=== PATIENT | female | born 1975 | race Caucasian/White ===

== ENCOUNTER → 2020-01-31 13:11 | Outpatient (BNVA) | payer OTHER, SELFPAY | PROVIDERS: Visit Provider Internal Medicine | DX: F11.20 Opioid dependence, uncomplicated (principal) | CPT/HCPCS: 80305; 99211 ==

== ENCOUNTER → 2020-02-18 15:35 | Outpatient (BNVA) | payer OTHER, SELFPAY | PROVIDERS: Visit Provider Internal Medicine | DX: F11.20 Opioid dependence, uncomplicated (principal) | CPT/HCPCS: 80305; 99211 ==

== ENCOUNTER → 2020-03-20 16:13 | Outpatient (BNVA) | payer OTHER, SELFPAY | PROVIDERS: Visit Provider Internal Medicine | DX: Z76.89 Persons encountering health services in other specified circumstances (principal) ==

== ENCOUNTER → 2020-04-17 15:47 | Outpatient (BNVA) | payer OTHER, SELFPAY | PROVIDERS: PCP Physician Assistant; Visit Provider Internal Medicine | DX: Z76.89 Persons encountering health services in other specified circumstances (principal) ==

== ENCOUNTER → 2020-05-14 11:46 | Outpatient (BNVA) | payer OTHER, SELFPAY | PROVIDERS: PCP Physician Assistant; Visit Provider Internal Medicine | DX: F11.20 Opioid dependence, uncomplicated (principal) | CPT/HCPCS: 80305; 99211 ==

== ENCOUNTER → 2020-06-11 13:04 | Outpatient (BNVA) | payer OTHER, SELFPAY | PROVIDERS: PCP Physician Assistant; Visit Provider Internal Medicine | DX: F11.99 Opioid use, unspecified with unspecified opioid-induced disorder (principal); Z79.899 Other long term (current) drug therapy | CPT/HCPCS: 80305; 99211 ==

== ENCOUNTER → 2020-12-11 13:19 | Outpatient (BNVA) | payer OTHER, SELFPAY | PROVIDERS: PCP Physician Assistant; Visit Provider Internal Medicine | DX: Z51.81 Encounter for therapeutic drug level monitoring (principal); F11.90 Opioid use, unspecified, uncomplicated | CPT/HCPCS: 80305; 99212 ==

== ENCOUNTER 2021-01-11 13:33 | Outpatient (REF) | payer OTHER, SELFPAY ==
[2021-01-11 18:38] LABS: Fentanyl, urine POSITIVE (Not Detect)
== END 2021-01-11 13:34 | disposition home or self-care (01) ==
LOC: HO.LAB 13:33
PROVIDERS: PCP Physician Assistant; Visit Provider Internal Medicine
DX: F11.20 Opioid dependence, uncomplicated (principal); Z79.899 Other long term (current) drug therapy
CPT/HCPCS: 36415; 80305; 80307; 99212

== ENCOUNTER → 2021-01-21 10:21 | Outpatient (BNVA) | payer OTHER, SELFPAY | PROVIDERS: Visit Provider Nurse Practitioner Psychiatric/Mental Health | DX: F11.99 Opioid use, unspecified with unspecified opioid-induced disorder (principal); Z51.81 Encounter for therapeutic drug level monitoring | CPT/HCPCS: 80305; 99212 ==

== ENCOUNTER → 2021-01-26 11:51 | Outpatient (BNVA) | payer OTHER, SELFPAY | PROVIDERS: Visit Provider Internal Medicine | DX: F11.90 Opioid use, unspecified, uncomplicated (principal) | CPT/HCPCS: 80305; 99212 ==

== ENCOUNTER 2021-03-23 10:45 | Outpatient (REF) | payer OTHER, SELFPAY ==
[2021-03-23 17:13] LABS: Fentanyl, urine Not Detected (Not Detect)
== END 2021-03-23 10:46 | disposition home or self-care (01) ==
LOC: HO.LNP 10:45
PROVIDERS: Visit Provider Internal Medicine
DX: F11.20 Opioid dependence, uncomplicated (principal); Z79.899 Other long term (current) drug therapy
CPT/HCPCS: 80305; 80307; 99212

== ENCOUNTER → 2021-03-30 13:22 | Outpatient (BNVA) | payer OTHER, SELFPAY | PROVIDERS: Visit Provider Internal Medicine | DX: F11.20 Opioid dependence, uncomplicated (principal) | CPT/HCPCS: 80305; 99211 ==

== ENCOUNTER → 2021-06-16 10:18 | Outpatient (BNVA) | payer OTHER, SELFPAY | PROVIDERS: Visit Provider Internal Medicine | DX: F11.20 Opioid dependence, uncomplicated (principal); Z51.81 Encounter for therapeutic drug level monitoring; Z79.899 Other long term (current) drug therapy | CPT/HCPCS: 80305; 99202 ==

== ENCOUNTER → 2021-08-20 13:29 | Outpatient (BNVA) | payer OTHER, SELFPAY | PROVIDERS: Visit Provider Internal Medicine | DX: F11.20 Opioid dependence, uncomplicated (principal); F14.90 Cocaine use, unspecified, uncomplicated | CPT/HCPCS: 99212 ==

== ENCOUNTER → 2021-08-23 14:21 | Outpatient (BNVA) | payer OTHER, SELFPAY | PROVIDERS: Visit Provider Internal Medicine | DX: Z51.81 Encounter for therapeutic drug level monitoring (principal); F11.20 Opioid dependence, uncomplicated | CPT/HCPCS: 80305; 99212 ==

== ENCOUNTER → 2021-09-17 10:55 | Outpatient (BNVA) | payer OTHER, SELFPAY | PROVIDERS: Visit Provider Internal Medicine | DX: F11.20 Opioid dependence, uncomplicated (principal) | CPT/HCPCS: 80305; 99212 ==

== ENCOUNTER → 2021-09-27 13:07 | Outpatient (BNVA) | payer OTHER, SELFPAY | PROVIDERS: Visit Provider Internal Medicine | DX: Z51.81 Encounter for therapeutic drug level monitoring (principal); F11.20 Opioid dependence, uncomplicated | CPT/HCPCS: 80305; 99212 ==

== ENCOUNTER → 2021-10-04 13:06 | Outpatient (BNVA) | payer OTHER, SELFPAY | PROVIDERS: Visit Provider Internal Medicine | DX: F11.20 Opioid dependence, uncomplicated (principal) | CPT/HCPCS: 80305; 99212 ==

== ENCOUNTER → 2021-10-12 12:49 | Outpatient (BNVA) | payer OTHER, SELFPAY | PROVIDERS: Visit Provider Internal Medicine | DX: F11.20 Opioid dependence, uncomplicated (principal) | CPT/HCPCS: 80305; 99212 ==

== ENCOUNTER → 2021-10-18 13:23 | Outpatient (BNVA) | payer OTHER, SELFPAY | PROVIDERS: Visit Provider Internal Medicine | DX: F11.20 Opioid dependence, uncomplicated (principal) | CPT/HCPCS: 80305; 99212 ==

== ENCOUNTER → 2021-10-25 13:57 | Outpatient (BNVA) | payer OTHER, SELFPAY | PROVIDERS: Visit Provider Internal Medicine | DX: Z51.81 Encounter for therapeutic drug level monitoring (principal); F11.20 Opioid dependence, uncomplicated | CPT/HCPCS: 80305; 99212 ==

== ENCOUNTER → 2021-11-22 11:53 | Outpatient (BNVA) | payer OTHER, SELFPAY | PROVIDERS: Visit Provider Internal Medicine | DX: Z51.81 Encounter for therapeutic drug level monitoring (principal); F11.20 Opioid dependence, uncomplicated | CPT/HCPCS: 99212 ==

== ENCOUNTER → 2021-12-07 13:58 | Outpatient (BNVA) | payer OTHER, SELFPAY | PROVIDERS: PCP Physician Assistant; Visit Provider Internal Medicine | DX: Z51.81 Encounter for therapeutic drug level monitoring (principal); F11.20 Opioid dependence, uncomplicated | CPT/HCPCS: 99212 ==

== ENCOUNTER 2021-12-09 15:24 | Outpatient (REF) | payer OTHER, SELFPAY ==
[2021-12-09 16:14] LABS: Hematocrit 34.7 % (37.0-47.0); Hemoglobin 11.6 g/dl (12.0-16.0); Mean Corpuscular HGB Conc 33.4 g/dl (31.0-35.0); Mean Corpuscular Hemoglobin 27.4 pg (27.0-33.0); Mean Corpuscular Volume 81.8 fL (80.0-98.0); Mean Platelet Volume 9.1 fL (9.4-12.3); Platelet Count 175 X10*3/uL (160-400); Red Blood Count 4.24 X10*6/uL (4.20-5.50); Red Cell Distribution Width 13.8 % (11.0-16.0); White Blood Count 3.3 X10*3/uL (4.8-10.8)
[2021-12-09 16:43] LABS: Alanine Aminotransferase 21 U/L (0-31); Albumin Level 3.9 g/dL (3.5-5.0); Alkaline Phosphatase 57 U/L (39-117); Anion Gap 13 (12-20); Aspartate Amino Transferase 26 U/L (5-31); Bilirubin Total 0.2 mg/dL (0.0-1.0); Blood Urea Nitrogen 14 mg/dL (9-16); Calcium 8.5 mg/dL (8.4-10.2); Carbon Dioxide 25 mmol/L (22-29); Chloride 105 mmol/L (96-108); Estimated Glomerular Filt Rate > 60; Glucose Fasting 85 mg/dL (60-99); Potassium 3.9 mmol/L (3.3-5.1); Sodium 139 mmol/L (135-145); Total Protein 6.2 g/dL (6.5-8.0)
[2021-12-09 17:03] LABS: TSH reflex Free T4 1.17 uIU/mL (0.32-4.0)
== END 2021-12-09 15:25 | disposition home or self-care (01) ==
LOC: HO.LAB 15:24
PROVIDERS: PCP Physician Assistant; Visit Provider Physician Assistant
DX: Z13.1 Encounter for screening for diabetes mellitus (principal); Z13.29 Encounter for screening for other suspected endocrine disorder
CPT/HCPCS: 36415; 80053; 84443; 85027

== ENCOUNTER → 2021-12-15 14:17 | Outpatient (BNVA) | payer OTHER, SELFPAY | PROVIDERS: PCP Physician Assistant; Visit Provider Internal Medicine | DX: Z51.81 Encounter for therapeutic drug level monitoring (principal); F11.20 Opioid dependence, uncomplicated | CPT/HCPCS: 99212 ==

== ENCOUNTER → 2021-12-21 10:08 | Outpatient (BNVA) | payer OTHER, SELFPAY | PROVIDERS: PCP Physician Assistant; Visit Provider Internal Medicine | DX: F11.20 Opioid dependence, uncomplicated (principal) | CPT/HCPCS: 99212 ==

== ENCOUNTER → 2022-01-31 11:06 | Outpatient (BNVA) | payer OTHER, SELFPAY | PROVIDERS: PCP Physician Assistant; Visit Provider Internal Medicine | DX: Z51.81 Encounter for therapeutic drug level monitoring (principal); F11.20 Opioid dependence, uncomplicated | CPT/HCPCS: 99212 ==

== ENCOUNTER → 2022-02-15 13:12 | Outpatient (BNVA) | payer OTHER, SELFPAY | PROVIDERS: PCP Physician Assistant; Visit Provider Surgery Vascular Surgery | DX: I83.11 Varicose veins of right lower extremity with inflammation (principal); F11.20 Opioid dependence, uncomplicated | CPT/HCPCS: 99202; 99212 ==

== ENCOUNTER 2022-03-01 16:59 | Outpatient (REF) | payer OTHER, SELFPAY ==
[2022-03-01 17:27] LABS: Fentanyl, urine POSITIVE (Not Detect)
== END 2022-03-01 17:00 | disposition home or self-care (01) ==
LOC: HO.LNP 16:59
PROVIDERS: Visit Provider Internal Medicine
DX: F11.20 Opioid dependence, uncomplicated (principal); Z51.81 Encounter for therapeutic drug level monitoring; Z79.899 Other long term (current) drug therapy
CPT/HCPCS: 80307; 99212

== ENCOUNTER → 2022-03-08 10:00 | Outpatient (BNVA) | payer OTHER, SELFPAY | PROVIDERS: PCP Physician Assistant; Visit Provider Nurse Practitioner Psychiatric/Mental Health | DX: Z51.81 Encounter for therapeutic drug level monitoring (principal); F11.20 Opioid dependence, uncomplicated | CPT/HCPCS: 80305; 99212 ==

== ENCOUNTER → 2022-03-17 15:32 | Outpatient (BNVA) | payer OTHER, SELFPAY | PROVIDERS: PCP Physician Assistant; Visit Provider Nurse Practitioner Psychiatric/Mental Health | DX: F11.20 Opioid dependence, uncomplicated (principal); F17.210 Nicotine dependence, cigarettes, uncomplicated; F32.A Depression, unspecified; Z79.899 Other long term (current) drug therapy; Z51.81 Encounter for therapeutic drug level monitoring | CPT/HCPCS: 80305; 99212 ==

== ENCOUNTER → 2022-03-24 15:37 | Outpatient (BNVA) | payer OTHER, SELFPAY | PROVIDERS: PCP Physician Assistant; Visit Provider Nurse Practitioner Psychiatric/Mental Health | DX: Z51.81 Encounter for therapeutic drug level monitoring (principal); F11.20 Opioid dependence, uncomplicated | CPT/HCPCS: 80305; 99212 ==

== ENCOUNTER → 2022-04-07 14:55 | Outpatient (BNVA) | payer OTHER, SELFPAY | PROVIDERS: PCP Physician Assistant; Visit Provider Nurse Practitioner Psychiatric/Mental Health | DX: Z51.81 Encounter for therapeutic drug level monitoring (principal); F11.20 Opioid dependence, uncomplicated; F14.10 Cocaine abuse, uncomplicated | CPT/HCPCS: 80305; 99212 ==

== ENCOUNTER → 2022-04-14 15:10 | Outpatient (BNVA) | payer OTHER, SELFPAY | PROVIDERS: PCP Physician Assistant; Visit Provider Nurse Practitioner Psychiatric/Mental Health | DX: F11.20 Opioid dependence, uncomplicated (principal); F14.10 Cocaine abuse, uncomplicated | CPT/HCPCS: 99212 ==

== ENCOUNTER → 2022-04-22 11:32 | Outpatient (BNVA) | payer OTHER, SELFPAY | PROVIDERS: PCP Physician Assistant; Visit Provider Nurse Practitioner Psychiatric/Mental Health | DX: F11.20 Opioid dependence, uncomplicated (principal); F14.10 Cocaine abuse, uncomplicated | CPT/HCPCS: 99212 ==

== ENCOUNTER → 2022-04-28 16:06 | Outpatient (BNVA) | payer OTHER, SELFPAY | PROVIDERS: PCP Physician Assistant; Visit Provider Nurse Practitioner Psychiatric/Mental Health | DX: F11.20 Opioid dependence, uncomplicated (principal); F14.10 Cocaine abuse, uncomplicated | CPT/HCPCS: 99212 ==

== ENCOUNTER → 2022-05-12 15:16 | Outpatient (BNVA) | payer OTHER, SELFPAY | PROVIDERS: PCP Physician Assistant; Visit Provider Nurse Practitioner Psychiatric/Mental Health | DX: F11.20 Opioid dependence, uncomplicated (principal); F14.20 Cocaine dependence, uncomplicated; F32.A Depression, unspecified; F17.210 Nicotine dependence, cigarettes, uncomplicated; Z71.51 Drug abuse counseling and surveillance of drug abuser; Z51.81 Encounter for therapeutic drug level monitoring; Z79.899 Other long term (current) drug therapy | CPT/HCPCS: 99212 ==

== ENCOUNTER → 2022-05-27 11:13 | Outpatient (BNVA) | payer OTHER, SELFPAY | PROVIDERS: PCP Physician Assistant; Visit Provider Nurse Practitioner Psychiatric/Mental Health | DX: Z51.81 Encounter for therapeutic drug level monitoring (principal); F11.20 Opioid dependence, uncomplicated; F14.10 Cocaine abuse, uncomplicated | CPT/HCPCS: 80305; 99212 ==

== ENCOUNTER → 2022-06-09 15:07 | Outpatient (BNVA) | payer OTHER, SELFPAY | PROVIDERS: PCP Physician Assistant; Visit Provider Nurse Practitioner Psychiatric/Mental Health | DX: Z51.81 Encounter for therapeutic drug level monitoring (principal); F11.20 Opioid dependence, uncomplicated; F14.10 Cocaine abuse, uncomplicated | CPT/HCPCS: 80305; 99212 ==

== ENCOUNTER → 2022-06-23 15:19 | Outpatient (BNVA) | payer OTHER, SELFPAY | PROVIDERS: PCP Physician Assistant; Visit Provider Nurse Practitioner Psychiatric/Mental Health | DX: F11.20 Opioid dependence, uncomplicated (principal); F14.10 Cocaine abuse, uncomplicated | CPT/HCPCS: 80305; 99212 ==

== ENCOUNTER → 2022-07-07 15:14 | Outpatient (BNVA) | payer OTHER, SELFPAY | PROVIDERS: PCP Physician Assistant; Visit Provider Nurse Practitioner Psychiatric/Mental Health | DX: F11.20 Opioid dependence, uncomplicated (principal); U07.0 Vaping-related disorder; F17.210 Nicotine dependence, cigarettes, uncomplicated; Z51.81 Encounter for therapeutic drug level monitoring; Z79.899 Other long term (current) drug therapy | CPT/HCPCS: 80305; 99212 ==

== ENCOUNTER → 2022-07-21 15:33 | Outpatient (BNVA) | payer OTHER, SELFPAY | PROVIDERS: PCP Physician Assistant | DX: Z51.81 Encounter for therapeutic drug level monitoring (principal); F11.10 Opioid abuse, uncomplicated ==

== ENCOUNTER 2022-07-26 16:29 | Emergency (ER) | payer OTHER, SELFPAY ==
--- NOTE | ~2022-07-26 | XR_ITS ---
EXAMINATION: XR CHEST CLINICAL INFORMATION: Short of breath COMPARISON: None available. TECHNIQUE: Frontal view of the chest was obtained. FINDINGS: The lungs are well expanded. There is no focal consolidation, edema, or effusion. No pneumothorax. The cardiomediastinal silhouette is within normal limits. No acute osseous abnormality. XR/XR chest 1V IMPRESSION: No acute pulmonary disease.
[2022-07-26 16:35] VITALS: BP 95/66; PULSE 132; RESP 18; TEMP 36.4; O2SAT 97; BMI 19.8
--- NOTE | 2022-07-26 16:40 | ED_ITS ---
HPI - URI/Sore Throat General Chief Complaint: Upper Respiratory Symptoms Stated Complaint: SOB/Trouble swallowing Time Seen by Provider: 07/26/22 19:34 Source: patient Mode of arrival: ambulatory Limitations: no limitations History of Present Illness HPI Narrative: Patient comes emergency room complaining of a sore throat that started a few days ago. Patient states that her kids had the same viral infection. Patient's partner came to be evaluated a few days ago, he was diagnosed with a viral infection as well. Patient denies fever or chills. Patient complaining of pain in her throat with swallowing. Related Data Previous Rx's Medication Instructions Recorded naloxone 4 mg/actuation nasal 4 mg intranasal Q2M PRN opioid 06/16/21 spray (Narcan) overdose #2 ea comp.stocking,thigh,long,small #2 ea 12/09/21 digital therapeutics, OUD (Reset-O #1 ea 05/27/22 Digital Jean (OUD)) bupropion HCl 150 mg tablet,12 hr 150 mg PO BID 30 days #60 tabs 06/09/22 sustained-release (Wellbutrin SR) [place], OUD (Reset-O #1 ea 06/09/22 Digital Jean (OUD)) topiramate 25 mg tablet 50 mg PO DAILY #60 tabs 06/09/22 mirtazapine 7.5 mg tablet 7.5 mg PO .bedtime PRN for 07/09/22 insomnia #30 tabs buprenorphine 8 mg-naloxone 2 mg 1 film sublingual BID 14 days #28 07/20/22 sublingual film (Suboxone) ea Allergies Allergy/AdvReac Type Severity Reaction Status Date / Time No Known Allergies Allergy Verified 07/26/22 16:34 Review of Systems Review of Systems: Constitutional : No Weight loss, No Fever, No Chills, No Night Sweats, No Fatigue, No Malaise ENT/Mouth : No Hearing loss, No Ear Pain, No Nasal Congestion, No Sinus Pain, No Hoarseness, complaining of sore throat, No Rhinorrhea, No Swallowing Difficulty Eyes: No Eye Pain, No Swelling, No Redness, No Foreign Body, No Discharge, No Vision Changes Cardiovascular : No Chest Pain, No SOB, No Dyspnea on Exertion, No Orthopnea, No Edema, No Palpitations Respiratory : No Cough, No Sputum, No Wheezing, No Smoke Exposure, No Dyspnea Gastrointestinal : No Nausea, No Vomiting, No Diarrhea, No Constipation, No abdominal Pain, No Hematochezia, No Melena Genitourinary : no irregular bleeding, No Dysuria, No Urinary Frequency, No Hematuria, No Urinary Incontinence, No Urgency, No Flank Pain, No Urinary Flow Changes, No Hesitancy Musculoskeletal : No joint pain, No Myalgias, No Joint Swelling Skin : No Skin Lesions, No rash Neuro : No Weakness, No Numbness, No Paresthesias, No Loss of Consciousness, No Dizziness, No Headache Psych : No Anxiety/Panic, No Depression, No SI/HI/AH/VH, No Social Issues, Heme/Lymph: No Bruising, No Bleeding,No Lymphadenopathy Endocrine : No Polyuria, No Polydipsia, No Temperature Intolerance [facility] Past Medical History Medical History Depression Opioid use disorder Family History Family History Father COPD (chronic obstructive pulmonary disease) Mother No problems noted. 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 Cognitive needs: No Hearing needs: No Vision needs: No Physical Exam Vital Signs: Vital Signs: Last Vital Signs Temp 97.5 F 07/26/22 16:35 Pulse 86 07/26/22 18:50 Resp 18 07/26/22 16:35 BP 95/66 07/26/22 16:35 Pulse Ox 97 07/26/22 18:50 O2 Del Method Room Air 07/26/22 18:50 BMI result Body Mass Index 19.8 Const: Other: Appearance: Alert. Oriented X3. No acute distress. Eyes: Pupils equal, round and reactive to light. ENT: Pharynx erythematous, no exudates, no abscesses visualized, no vesicles Neck: Normal inspection. Neck supple. No lymph nodes noted. No crepitus CVS: Normal heart rate and rhythm. Pulses normal. Normal S1 and S2 Respiratory: No respiratory distress. Breath sounds normal. No Wheezing. No rales Abdomen: Soft and nontender. No rigidity. No distention. Skin: Skin warm and dry. Normal skin color. Normal skin turgor. Extremities: No lower extremity edema. No Lacerations. No Rash Neuro: Oriented X 3. No motor deficit. No sensory deficit. Moving all extremities. No slurred speech. CN 2 through 12 grossly intact Psych: calm, cooperative, normal affect Medications Administered Discontinued Medications Generic Name Dose Route Start Last Admin Trade Name Freq PRN Reason Stop Dose Admin Dexamethasone Sodium Phosphate 4 mg 07/26/22 19:48 07/26/22 20:04 Dexamethasone Sod Phosphate 4 Mg/Ml Vial IVPUSH 07/26/22 19:49 4 mg ONCE ONE Administration Lidocaine HCl 15 ml 07/26/22 19:48 07/26/22 20:04 Lidocaine Hcl Viscous 2 % 15 Ml Solution MUCOUS MEM 07/26/22 19:49 15 ml ONCE ONE Administration Medical Decision Making Medical Decision Making MDM Narrative: Patient tested negative for COVID, strep -patient likely has viral pharyngitis -patient was given 1 dose of p.o. Decadron and viscous lidocaine for symptomatic relief Lab Data Labs: Lab Results 07/26/22 07/26/22 07/26/22 Range/Units 18:06 18:06 18:06 COVID-19 (SANDEE) Negative (Negative) COVID-19 Clin Com See Note Influenza Type A (JOSE) Negative (Negative) Influenza Type B (JOSE) Negative (Negative) Influenza A & B Note See Note S. pyogenes GrpA JOSE Negative (Negative) Discharge Plan Discharge Clinical Impression: Acute viral pharyngitis Patient Disposition: Home, Self-Care Instructions: Pharyngitis (ED) Additional Instructions: Please follow-up with your primary care physician tomorrow. If you have any worsening or new symptoms, please return to the emergency room or call 911 Prescriptions: No Action mirtazapine 7.5 mg tablet 7.5 mg PO .bedtime PRN (Reason: for insomnia) Qty: 30 0RF buprenorphine-naloxone [Suboxone] 8-2 mg film 1 film sublingual BID 14 Days Qty: 28 0RF (DME) comp.stocking,thigh,long,small Misc See Rx Instructions .Route Qty: 2 0RF Rx Instructions: As directed naloxone [Narcan] 4 mg/actuation spray,non-aerosol 4 mg intranasal Q2M PRN (Reason: opioid overdose) Qty: 2 11RF Rx Instructions: spray 1 dose into ONE nostril; alternate nostrils w each dose until help arrives (DME) Reset-O Digital Jean (OUD) Misc See Rx Instructions .MEDSUPPLY Qty: 1 0RF Rx Instructions: As directed (3-4 times a week) 84 days topiramate 25 mg tablet 50 mg PO DAILY Qty: 60 1RF bupropion HCl [Wellbutrin SR] 150 mg tablet sustained-release 12 hr 150 mg PO BID 30 Days Qty: 60 5RF (DME) Reset-O Digital Jean (OUD) Misc See Rx Instructions .MEDSUPPLY Qty: 1 3RF Rx Instructions: As directed (3-4 times a week) 84 days
[2022-07-26 18:21] LABS: IDNOW Serial# 08D9AD1C; Strep A Nucleic Acid Negative (Negative)
[2022-07-26 18:27] LABS: COVID-19 Test Negative (Negative); IDNOW Serial# 55D5AD1C
[2022-07-26 18:31] LABS: IDNOW Serial# 9DB6401D; Influenza A Negative (Negative); Influenza B2 Negative (Negative)
[2022-07-26 18:50] VITALS: PULSE 86; O2SAT 97
[2022-07-26] MEDS: dexAMETHasone sod phosphate 4 MG/ML VIAL IVPUSH (20:04)
[2022-07-26] MEDS: Lidocaine HCl Viscous 2 % 15 ML SOLUTION MUCOUS MEM (20:04)
== END 2022-07-26 20:30 | disposition home or self-care (01) ==
PROVIDERS: Physician Assistant; Emergency Provider Emergency Medicine; PCP Physician Assistant
DX: J02.9 Acute pharyngitis, unspecified (principal); Z20.822 Contact with and (suspected) exposure to COVID-19; F11.20 Opioid dependence, uncomplicated; F17.200 Nicotine dependence, unspecified, uncomplicated
CPT/HCPCS: 71045; 87502; 87635; 87651; 99282; 99283; J1100

== ENCOUNTER → 2022-08-04 15:39 | Outpatient (BNVA) | payer OTHER, SELFPAY | PROVIDERS: PCP Physician Assistant; Visit Provider Nurse Practitioner Psychiatric/Mental Health | DX: F11.20 Opioid dependence, uncomplicated (principal); F14.10 Cocaine abuse, uncomplicated; F17.210 Nicotine dependence, cigarettes, uncomplicated; Z51.81 Encounter for therapeutic drug level monitoring; Z79.899 Other long term (current) drug therapy | CPT/HCPCS: 99212 ==

== ENCOUNTER 2022-08-25 11:23 | Outpatient (REF) | payer OTHER, SELFPAY ==
[2022-08-25 14:34] LABS: Alanine Aminotransferase 11 U/L (0-31); Albumin Level 4.1 g/dL (3.5-5.0); Alkaline Phosphatase 58 U/L (39-117); Aspartate Amino Transferase 18 U/L (5-31); Bilirubin Direct 0.1 mg/dL (0.0-0.5); Bilirubin Total 0.3 mg/dL (0.0-1.0); Total Protein 6.6 g/dL (6.5-8.0)
== END 2022-08-25 11:24 | disposition home or self-care (01) ==
LOC: HO.LAB 11:23
PROVIDERS: Absent Provider Nurse Practitioner Psychiatric/Mental Health; PCP Physician Assistant; Visit Provider Nurse Practitioner Psychiatric/Mental Health
DX: F11.20 Opioid dependence, uncomplicated (principal); F14.10 Cocaine abuse, uncomplicated; Z51.81 Encounter for therapeutic drug level monitoring; Z79.899 Other long term (current) drug therapy
CPT/HCPCS: 36415; 80076; 99212

== ENCOUNTER → 2022-09-15 15:24 | Outpatient (BNVA) | payer OTHER, SELFPAY | PROVIDERS: PCP Physician Assistant; Visit Provider Nurse Practitioner Psychiatric/Mental Health | DX: Z51.81 Encounter for therapeutic drug level monitoring (principal); F11.20 Opioid dependence, uncomplicated; F14.10 Cocaine abuse, uncomplicated | CPT/HCPCS: 80305; 99212 ==

== ENCOUNTER 2022-10-20 13:37 | Outpatient (AMB) | payer OTHER, SELFPAY ==
--- NOTE | 2022-10-20 13:40 | A.OFFVIS_ITS ---
Intake Vital Signs 10/20/22 13:47 BP 102/74 Blood Pressure Location Lt radial Position Sitting Pulse 85 Pulse Source Pulse Oximeter Pulse Oximetry (%) 98 Oxygen Delivery Method Room Air Intake Visit Reasons: MAT VISIT Intake Note: the patient presents for a mat visit Documentation Engineer Required: No Allergies No Known Allergies Allergy (Verified 10/20/22 13:40) Do you need a note to return to daycare/school/sports/work: No HPI MAT VISIT HPI Details Patient presents for follow-up. Currently prescribed Suboxone 8 mg b.i.d.. Continues to abstain from opiates and cocaine. Bright affect, has been working for the past 3 months and is excited about her upcoming performance review where she may beginning a raise. 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 No questions or concerns related to medications. 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 Cognitive needs: No Hearing needs: No Vision needs: No Review of Systems Const Reports as per HPI and Reports no additional complaints Physical Exam Vital Signs: Last Vital Signs Pulse 85 10/20/22 13:47 BP 102/74 10/20/22 13:47 Pulse Ox 98 10/20/22 13:47 Oxygen Delivery Method Room Air 10/20/22 13:47 Const General: cooperative, healthy appearing, comfortable, no acute distress, well developed and alert Nutritional Appearance: average body habitus Orientation/consciousness: patient oriented x3 Limitations: no limitations Neuro General: patient oriented x3 Psych Appearance: grossly normal Mental Status: mental status grossly normal Speech and movement: Normal speech and movement present Affect: normal affect Attitude: cooperative Thought process: Normal thought process present Thought content: Normal thought content present Insight: Good insight present (Psych) Judgement: Good judgement present (Psych) Assessment & Plan Assessment & Plan (1) Opioid use disorder, severe, dependence: Code(s): F11.20 - Opioid dependence, uncomplicated Plan: * Continue Suboxone at current dose * Relapse prevention discussion * Follow-up 4 weeks (2) Cocaine use disorder: Code(s): F14.10 - Cocaine abuse, uncomplicated Coding Level of Care Code Est Pt Level 3 (16855) Diagnoses Opioid use disorder, severe, dependence F11.20 Cocaine use disorder F14.10
[2022-10-20 13:47] VITALS: BP 102/74; PULSE 85; O2SAT 98
== END 2022-10-20 14:12 | disposition home or self-care (01) ==
LOC: HO.HCC 13:37
PROVIDERS: PCP Physician Assistant; Visit Provider Nurse Practitioner Psychiatric/Mental Health
DX: F11.20 Opioid dependence, uncomplicated (principal); F14.10 Cocaine abuse, uncomplicated
CPT/HCPCS: 99213

== ENCOUNTER → 2022-10-20 13:37 | Outpatient (BNVA) | payer OTHER, SELFPAY | PROVIDERS: PCP Physician Assistant; Visit Provider Nurse Practitioner Psychiatric/Mental Health | DX: F11.20 Opioid dependence, uncomplicated (principal); F14.10 Cocaine abuse, uncomplicated | CPT/HCPCS: 99212 ==

== ENCOUNTER 2022-11-10 14:28 | Outpatient (AMB) | payer OTHER, SELFPAY ==
--- NOTE | 2022-11-10 14:32 | MHC.OFFVIS ---
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 Working FT+ every week Feels good about having all of her house bills paid and up to date Looking to attend meetings--not locally [facility] Medical History Depression Opioid use disorder Other group home (current) drug therapy Family History Father COPD (chronic obstructive pulmonary disease) Mother No problems noted. 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 Cognitive needs: No Hearing needs: No Vision needs: No Review of Systems Const Reports as per HPI and Reports no additional complaints Physical Exam Vital Signs: Last Vital Signs Pulse 86 11/10/22 14:43 BP 110/70 11/10/22 14:43 Pulse Ox 97 11/10/22 14:43 Oxygen Delivery Method Room Air 11/10/22 14:43 Const General: cooperative, healthy appearing, comfortable, no acute distress, well developed and alert Nutritional Appearance: average body habitus Orientation/consciousness: patient oriented x3 Limitations: no limitations Neuro General: patient oriented x3 Psych Appearance: grossly normal Mental Status: mental status grossly normal Speech and movement: Normal speech and movement present Affect: normal affect Attitude: cooperative Thought process: Normal thought process present Thought content: Normal thought content present Insight: Good insight present (Psych) Judgement: Good judgement present (Psych) Results AMB 14 Panel Urine Drug Screen Urine Marijuana (THC) Positive Last Edit by Cherelle Templeton CMA on 11/10/22 14:50 Urine Cocaine Negative Last Edit by Cherelle Templeton CMA on 11/10/22 14:50 Urine Morphine Negative Last Edit by Cherelle Templeton CMA on 11/10/22 14:50 Urine Methamphetamine Negative Last Edit by Cherelle Templeton CMA on 11/10/22 14:50 Urine Amphetamine Negative Last Edit by Cherelle Templeton CMA on 11/10/22 14:50 Urine Benzodiazepine Negative Last Edit by Cherelle Templeton CMA on 11/10/22 14:50 Urine Barbiturates Negative Last Edit by Cherelle Templeton CMA on 11/10/22 14:50 Urine Methadone Negative Last Edit by Cherelle Templeton CMA on 11/10/22 14:50 Urine Buprenorphine Positive Last Edit by Cherelle Templeton CMA on 11/10/22 14:50 Urine Tricyclic Antidepressant Negative Last Edit by Cherelle Templeton CMA on 11/10/22 14:50 Urine MDMA Negative Last Edit by Cherelle Templeton CMA on 11/10/22 14:50 Urine Oxycodone Negative Last Edit by Cherelle Templeton CMA on 11/10/22 14:50 Urine Phencyclidine Negative Last Edit by Cherelle Templeton CMA on 11/10/22 14:50 Urine Propoxyphene Negative Last Edit by Cherelle Templeton CMA on 11/10/22 14:50 Results Reviewed Results Reviewed: Laboratory Last Values POC Urine Buprenorphine Positive 11/10/22 14:44 POC Urine Morphine Negative 11/10/22 14:44 POC Urine Oxycodone Negative 11/10/22 14:44 POC Urine Methadone Negative 11/10/22 14:44 POC Urine Propoxyphene Negative 11/10/22 14:44 POC Urine Barbiturates Negative 11/10/22 14:44 POC U Tricyclic Antidpr Negative 11/10/22 14:44 POC Urine PCP Negative 11/10/22 14:44 POC Ur Amphetamines Negative 11/10/22 14:44 POC Ur Methamphetamine Negative 11/10/22 14:44 POC Urine MDMA Negative 11/10/22 14:44 POC Ur Benzodiazepine Negative 11/10/22 14:44 POC Urine Cocaine Negative 11/10/22 14:44 POC Ur Marijuana (THC) Positive 11/10/22 14:44 Assessment & Plan Assessment & Plan (1) Opioid use disorder, severe, dependence: Code(s): F11.20 - Opioid dependence, uncomplicated Plan: Continue Suboxone at current dose Relapse prevention discussion Follow-up 4 weeks (2) Cocaine use disorder: Code(s): F14.10 - Cocaine abuse, uncomplicated Orders: Orders AMB 14 Panel Urine Drug Screen 11/10/22 Z51.81 - Encounter for therapeutic drug level monitoring Medications: Refilled buprenorphine-naloxone 8-2 mg (Suboxone) 1 film sublingual BID 60 ea 0RF 30 days Coding Level of Care Code Est Pt Level 3 (23570) Diagnoses Opioid use disorder, severe, dependence F11.20 Cocaine use disorder F14.10
[2022-11-10 14:43] VITALS: BP 110/70; PULSE 86; O2SAT 97
== END 2022-11-10 15:30 | disposition home or self-care (01) ==
LOC: HO.HCC 14:29
PROVIDERS: PCP Physician Assistant; Visit Provider Nurse Practitioner Psychiatric/Mental Health
DX: F11.20 Opioid dependence, uncomplicated (principal); F14.10 Cocaine abuse, uncomplicated
CPT/HCPCS: 99213

== ENCOUNTER → 2022-11-10 14:28 | Outpatient (BNVA) | payer OTHER, SELFPAY | PROVIDERS: PCP Physician Assistant; Visit Provider Nurse Practitioner Psychiatric/Mental Health | DX: Z51.81 Encounter for therapeutic drug level monitoring (principal); F11.20 Opioid dependence, uncomplicated; F14.10 Cocaine abuse, uncomplicated | CPT/HCPCS: 80305; 99212 ==

== ENCOUNTER 2022-12-15 14:56 | Outpatient (AMB) | payer OTHER, SELFPAY ==
--- NOTE | 2022-12-15 14:57 | MHC.OFFVIS ---
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 Cognitive needs: No Hearing needs: No Vision needs: No Review of Systems Const Reports as per HPI and Reports no additional complaints Physical Exam Vital Signs: Last Vital Signs Pulse 78 12/15/22 15:02 BP 106/74 12/15/22 15:02 Pulse Ox 94 12/15/22 15:02 Oxygen Delivery Method Room Air 12/15/22 15:02 Const General: cooperative, healthy appearing, comfortable, no acute distress, well developed and alert Nutritional Appearance: average body habitus Orientation/consciousness: patient oriented x3 Limitations: no limitations Neuro General: patient oriented x3 Psych Appearance: grossly normal Mental Status: mental status grossly normal Speech and movement: Normal speech and movement present Affect: normal affect Attitude: cooperative Thought process: Normal thought process present Thought content: Normal thought content present Insight: Good insight present (Psych) Judgement: Good judgement present (Psych) Assessment & Plan Assessment & Plan (1) Opioid use disorder, severe, dependence: Code(s): F11.20 - Opioid dependence, uncomplicated Plan: Continue Suboxone at current dose Relapse prevention discussion Follow-up 4 weeks (2) Cocaine use disorder: Code(s): F14.10 - Cocaine abuse, uncomplicated Medications: Refilled buprenorphine-naloxone 8-2 mg (Suboxone) 1 film sublingual BID 60 ea 0RF 30 days Coding Level of Care Code Est Pt Level 3 (18785) Diagnoses Opioid use disorder, severe, dependence F11.20 Cocaine use disorder F14.10
[2022-12-15 15:02] VITALS: BP 106/74; PULSE 78; O2SAT 94
== END 2022-12-15 15:32 | disposition home or self-care (01) ==
LOC: HO.HCC 14:56
PROVIDERS: PCP Physician Assistant; Visit Provider Nurse Practitioner Psychiatric/Mental Health
DX: F11.20 Opioid dependence, uncomplicated (principal); F14.10 Cocaine abuse, uncomplicated
CPT/HCPCS: 99213

== ENCOUNTER → 2022-12-15 14:56 | Outpatient (BNVA) | payer OTHER, SELFPAY | PROVIDERS: PCP Physician Assistant; Visit Provider Nurse Practitioner Psychiatric/Mental Health | DX: F11.20 Opioid dependence, uncomplicated (principal); F14.10 Cocaine abuse, uncomplicated; U07.0 Vaping-related disorder; F17.210 Nicotine dependence, cigarettes, uncomplicated; Z51.81 Encounter for therapeutic drug level monitoring; Z79.899 Other long term (current) drug therapy | CPT/HCPCS: 99212 ==

== ENCOUNTER 2023-01-12 10:53 | Outpatient (AMB) | payer OTHER, SELFPAY ==
--- NOTE | 2023-01-12 10:54 | MHC.OFFVIS ---
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 Cognitive needs: No Hearing needs: No Vision needs: No Review of Systems Const Reports as per HPI and Reports no additional complaints Physical Exam Vital Signs: Last Vital Signs Pulse 96 01/12/23 11:02 BP 108/70 01/12/23 11:02 Pulse Ox 97 01/12/23 11:02 Oxygen Delivery Method Room Air 01/12/23 11:02 Const General: cooperative, healthy appearing, comfortable, no acute distress, well developed and alert Nutritional Appearance: average body habitus Orientation/consciousness: patient oriented x3 Limitations: no limitations Neuro General: patient oriented x3 Psych Appearance: grossly normal Mental Status: mental status grossly normal Speech and movement: Normal speech and movement present Affect: normal affect Attitude: cooperative Thought process: Normal thought process present Thought content: Normal thought content present Insight: Good insight present (Psych) Judgement: Good judgement present (Psych) Assessment & Plan Assessment & Plan (1) Opioid use disorder, severe, dependence: Code(s): F11.20 - Opioid dependence, uncomplicated Plan: Continue Suboxone at current dose Relapse prevention discussion Follow-up 4 weeks (2) Cocaine use disorder: Code(s): F14.10 - Cocaine abuse, uncomplicated Plan: continue topomax Medications: Refilled buprenorphine-naloxone 8-2 mg (Suboxone) 1 film sublingual BID 60 ea 0RF 30 days Coding Level of Care Code Est Pt Level 3 (32693) Diagnoses Opioid use disorder, severe, dependence F11.20 Cocaine use disorder F14.10
[2023-01-12 11:02] VITALS: BP 108/70; PULSE 96; O2SAT 97
== END 2023-01-12 11:40 | disposition home or self-care (01) ==
PROVIDERS: PCP Physician Assistant; Visit Provider Nurse Practitioner Psychiatric/Mental Health
DX: F11.20 Opioid dependence, uncomplicated (principal); F14.10 Cocaine abuse, uncomplicated
CPT/HCPCS: 99213

== ENCOUNTER → 2023-01-12 10:53 | Outpatient (BNVA) | payer OTHER, SELFPAY | PROVIDERS: PCP Physician Assistant; Visit Provider Nurse Practitioner Psychiatric/Mental Health | DX: F11.20 Opioid dependence, uncomplicated (principal); F14.10 Cocaine abuse, uncomplicated | CPT/HCPCS: 99212 ==

== ENCOUNTER 2023-02-09 13:45 | Outpatient (AMB) | payer MEDICAID, SELFPAY ==
[2023-02-09 14:05] VITALS: BP 110/72; PULSE 88; O2SAT 97
--- NOTE | 2023-02-09 14:05 | MHC.AM.SUB ---
Intake Vital Signs 02/09/23 14:05 BP 110/72 Blood Pressure Location Rt brachial Position Sitting Pulse 88 Pulse Source Pulse Oximeter Pulse Oximetry (%) 97 Oxygen Delivery Method Room Air Intake Visit Reasons: MAT VISIT Allergies No Known Allergies Allergy (Verified 01/12/23 10:55) HPI MAT VISIT HPI Details Patient presents for follow up Reporting 7 months in recovery Still working FT and happy Spending more time with her daughters Planning for her future [facility] Medical History Depression Opioid use disorder Other detention (current) drug therapy Family History Father COPD (chronic obstructive pulmonary disease) Mother No problems noted. 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 Cognitive needs: No Hearing needs: No Vision needs: No Review of Systems Const Reports as per HPI Physical Exam Vital Signs: Last Vital Signs Pulse 88 02/09/23 14:05 BP 110/72 02/09/23 14:05 Pulse Ox 97 02/09/23 14:05 Oxygen Delivery Method Room Air 02/09/23 14:05 Const General: cooperative, healthy appearing, comfortable, no acute distress, well developed and alert Nutritional Appearance: average body habitus Orientation/consciousness: patient oriented x3 Limitations: no limitations Neuro General: patient oriented x3 Psych Appearance: grossly normal Mental Status: mental status grossly normal Speech and movement: Normal speech and movement present Affect: normal affect Attitude: cooperative Thought process: Normal thought process present Thought content: Normal thought content present Insight: Good insight present (Psych) Judgement: Good judgement present (Psych) Assessment & Plan Assessment & Plan (1) Opioid use disorder, severe, in early remission, dependence: Code(s): F11.21 - Opioid dependence, in remission Plan: continue suboxone at current dose relapse prevention discussion follow up 4 weeks Medications: Refilled buprenorphine-naloxone 8-2 mg (Suboxone) 1 film sublingual BID 60 ea 0RF 30 days Coding Level of Care Code Est Pt Level 3 (91953) Diagnoses Opioid use disorder, severe, in early remission, dependence F11.21
== END 2023-02-09 14:41 | disposition home or self-care (01) ==
PROVIDERS: PCP Physician Assistant; Visit Provider Nurse Practitioner Psychiatric/Mental Health
DX: F11.21 Opioid dependence, in remission (principal)
CPT/HCPCS: 99213

== ENCOUNTER → 2023-02-09 13:45 | Outpatient (BNVA) | payer MEDICAID, SELFPAY | PROVIDERS: PCP Physician Assistant; Visit Provider Nurse Practitioner Psychiatric/Mental Health | DX: Z51.81 Encounter for therapeutic drug level monitoring (principal); F11.21 Opioid dependence, in remission | CPT/HCPCS: 99212 ==

== ENCOUNTER 2023-03-09 13:33 | Outpatient (AMB) | payer MEDICAID, SELFPAY ==
--- NOTE | 2023-03-09 13:40 | MHC.AM.SUB ---
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 Cognitive needs: No Hearing needs: No Vision needs: No Review of Systems Const Reports as per HPI and Reports no additional complaints Physical Exam Const General: cooperative, healthy appearing, comfortable, no acute distress, well developed and alert Nutritional Appearance: average body habitus Orientation/consciousness: patient oriented x3 Limitations: no limitations Neuro General: patient oriented x3 Psych Appearance: grossly normal Mental Status: mental status grossly normal Speech and movement: Normal speech and movement present Affect: normal affect Attitude: cooperative Thought process: Normal thought process present Thought content: Normal thought content present Insight: Good insight present (Psych) Judgement: Good judgement present (Psych) Assessment & Plan Assessment & Plan (1) Opioid use disorder, severe, in early remission, dependence: Code(s): F11.21 - Opioid dependence, in remission Plan: continue suboxone at current dose relapse prevention discussion follow up 4 weeks Medications: Refilled buprenorphine-naloxone 8-2 mg (Suboxone) 1 film sublingual BID 60 ea 0RF 30 days Discontinued nicotine (Nicotrol) every 2 to 4 hours as needed for nicotine cravings Discontinued Reason: Patient no longer taking 1 inh inhalation Q2-4H PRN 168 ea 0RF nicotine cravings Coding Level of Care Code Est Pt Level 3 (13697) Diagnoses Opioid use disorder, severe, in early remission, dependence F11.21
== END 2023-03-09 14:54 | disposition home or self-care (01) ==
PROVIDERS: PCP Physician Assistant; Visit Provider Nurse Practitioner Psychiatric/Mental Health
DX: F11.21 Opioid dependence, in remission (principal)
CPT/HCPCS: 99213

== ENCOUNTER → 2023-03-09 13:33 | Outpatient (BNVA) | payer MEDICAID, SELFPAY | PROVIDERS: PCP Physician Assistant; Visit Provider Nurse Practitioner Psychiatric/Mental Health | DX: F11.21 Opioid dependence, in remission (principal); F14.20 Cocaine dependence, uncomplicated; F17.210 Nicotine dependence, cigarettes, uncomplicated; Z51.81 Encounter for therapeutic drug level monitoring; Z79.899 Other long term (current) drug therapy | CPT/HCPCS: 99212 ==

== ENCOUNTER 2023-04-04 10:11 | Outpatient (AMB) | payer MEDICAID, SELFPAY ==
--- NOTE | 2023-04-04 10:13 | MHC.AM.SUB ---
Intake Vital Signs 04/04/23 10:17 BP 116/70 Blood Pressure Location Lt radial Position Sitting Pulse 99 Pulse Source Pulse Oximeter Pulse Oximetry (%) 96 Oxygen Delivery Method Room Air Intake Visit Reasons: MAT VISIT Intake Note: the patient presents or a mat visit Data Collection Specialist Required: No Allergies No Known Allergies Allergy (Verified 04/04/23 10:19) Do you need a note to return to daycare/school/sports/work: No HPI MAT VISIT HPI Details Patient presents for follow up Doing well with recovery-prescribed Suboxone 8mg BID Still working FT Positive Holiday with family [facility] Medical History (Updated 03/09/23 @ 13:51 by Marquita Rivas CNP) Cocaine use disorder Opioid use disorder, severe, dependence 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 Cognitive needs: No Hearing needs: No Vision needs: No Review of Systems Const Reports as per HPI Physical Exam Vital Signs: Last Vital Signs Pulse 99 04/04/23 10:17 BP 116/70 04/04/23 10:17 Pulse Ox 96 04/04/23 10:17 Oxygen Delivery Method Room Air 04/04/23 10:17 Const General: cooperative, healthy appearing, comfortable, no acute distress, well developed and alert Nutritional Appearance: average body habitus Orientation/consciousness: patient oriented x3 Limitations: no limitations Neuro General: patient oriented x3 Psych Appearance: grossly normal Mental Status: mental status grossly normal Speech and movement: Normal speech and movement present Affect: normal affect Attitude: cooperative Thought process: Normal thought process present Thought content: Normal thought content present Insight: Good insight present (Psych) Judgement: Good judgement present (Psych) Assessment & Plan Assessment & Plan (1) Opioid use disorder, severe, in early remission, dependence: Code(s): F11.21 - Opioid dependence, in remission Plan: continue suboxone at current dose relapse prevention discussion follow up 4 weeks Medications: Refilled buprenorphine-naloxone 8-2 mg (Suboxone) 1 film sublingual BID 30 days 60 ea 0RF bupropion HCl (Wellbutrin SR) 150 mg PO BID 60 tabs 5RF 30 days buprenorphine-naloxone 8-2 mg (Suboxone) 1 film sublingual BID 60 ea 0RF 30 days Coding Level of Care Code Est Pt Level 3 (36109) Diagnoses Opioid use disorder, severe, in early remission, dependence F11.21
[2023-04-04 10:17] VITALS: BP 116/70; PULSE 99; O2SAT 96
== END 2023-04-04 11:13 | disposition home or self-care (01) ==
PROVIDERS: PCP Physician Assistant; Visit Provider Nurse Practitioner Psychiatric/Mental Health
DX: F11.21 Opioid dependence, in remission (principal)
CPT/HCPCS: 99213

== ENCOUNTER → 2023-04-04 10:11 | Outpatient (BNVA) | payer MEDICAID, SELFPAY | PROVIDERS: PCP Physician Assistant; Visit Provider Nurse Practitioner Psychiatric/Mental Health | DX: Z51.81 Encounter for therapeutic drug level monitoring (principal); F11.21 Opioid dependence, in remission | CPT/HCPCS: 99212 ==

== ENCOUNTER 2023-05-02 09:41 | Outpatient (AMB) | payer OTHER, SELFPAY ==
--- NOTE | 2023-05-02 09:45 | A.OFFVISCC_ITS ---
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 Will be getting her car soon. Still working FT PCP appt in May for [facility] Medical History (Updated 03/09/23 @ 13:51 by Marquita Rivas CNP) Cocaine use disorder Opioid use disorder, severe, dependence Other care home (current) drug therapy Depression Opioid use disorder Family History Father COPD (chronic obstructive pulmonary disease) Mother No problems noted. 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 Cognitive needs: No Hearing needs: No Vision needs: No Review of Systems Const Reports as per HPI and Reports no additional complaints Physical Exam Vital Signs: Last Vital Signs Pulse 74 05/02/23 09:49 BP 124/70 05/02/23 09:49 Pulse Ox 98 05/02/23 09:49 Oxygen Delivery Method Room Air 05/02/23 09:49 Const General: cooperative, healthy appearing, comfortable, no acute distress, well developed and alert Nutritional Appearance: average body habitus Orientation/consciousness: patient oriented x3 Limitations: no limitations Neuro General: patient oriented x3 Psych Appearance: grossly normal Mental Status: mental status grossly normal Speech and movement: Normal speech and movement present Affect: normal affect Attitude: cooperative Thought process: Normal thought process present Thought content: Normal thought content present Insight: Good insight present (Psych) Judgement: Good judgement present (Psych) Assessment & Plan Assessment & Plan (1) Opioid use disorder, severe, in early remission, dependence: Code(s): F11.21 - Opioid dependence, in remission Plan: * continue suboxone at current dose * follow up 4 weeks * relapse prevention discussion Medications: Refilled buprenorphine-naloxone 8-2 mg (Suboxone) 1 film sublingual BID 30 days 60 ea 0RF Coding Level of Care Code Est Pt Level 3 (46880) Diagnoses Opioid use disorder, severe, in early remission, dependence F11.21
[2023-05-02 09:49] VITALS: BP 124/70; PULSE 74; O2SAT 98
== END 2023-05-02 10:32 | disposition home or self-care (01) ==
PROVIDERS: PCP Physician Assistant; Visit Provider Nurse Practitioner Psychiatric/Mental Health
DX: F11.21 Opioid dependence, in remission (principal)
CPT/HCPCS: 99213

== ENCOUNTER → 2023-05-02 09:41 | Outpatient (BNVA) | payer OTHER, SELFPAY | PROVIDERS: PCP Physician Assistant; Visit Provider Nurse Practitioner Psychiatric/Mental Health | DX: F11.20 Opioid dependence, uncomplicated (principal) | CPT/HCPCS: 99212 ==

== ENCOUNTER 2023-06-01 12:58 | Outpatient (AMB) | payer OTHER, SELFPAY ==
--- NOTE | 2023-06-01 12:59 | A.OFFVISCC_ITS ---
Intake Vital Signs 06/01/23 13:04 Weight 129 lb BP 110/70 Blood Pressure Location Lt radial Position Sitting Pulse 87 Pulse Source Pulse Oximeter Pulse Oximetry (%) 96 Oxygen Delivery Method Room Air Intake Visit Reasons: MAT VISIT Intake Note: The patient presents for a mat visit Education Nurse Required: No Allergies No Known Allergies Allergy (Verified 06/01/23 13:05) Do you need a note to return to daycare/school/sports/work: No HPI MAT VISIT HPI Details Pt presents for OUD treatment follow up Currently being prescribed Suboxone 8mg BID Denies any side effects related to medication Engaged in outpt treatment with [facility] Still working FT, saving money to get her car on the road. 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 Cognitive needs: No Hearing needs: No Vision needs: No Review of Systems Const Reports as per HPI and Reports no additional complaints Physical Exam Vital Signs: Last Vital Signs Pulse 87 06/01/23 13:04 BP 110/70 06/01/23 13:04 Pulse Ox 96 06/01/23 13:04 Oxygen Delivery Method Room Air 06/01/23 13:04 Const General: cooperative, healthy appearing, comfortable, no acute distress, well developed and alert Nutritional Appearance: average body habitus Orientation/consciousness: patient oriented x3 Limitations: no limitations Neuro General: patient oriented x3 Psych Appearance: grossly normal Mental Status: mental status grossly normal Speech and movement: Normal speech and movement present Affect: normal affect Attitude: cooperative Thought process: Normal thought process present Thought content: Normal thought content present Insight: Good insight present (Psych) Judgement: Good judgement present (Psych) Assessment & Plan Assessment & Plan (1) Opioid use disorder, severe, in early remission, dependence: Code(s): F11.21 - Opioid dependence, in remission Plan: * continue suboxone at current dose * follow up 4 weeks * relapse prevention discussion Medications: Refilled buprenorphine-naloxone 8-2 mg (Suboxone) 1 film sublingual BID 60 ea 0RF 30 days Coding Level of Care Code Est Pt Level 3 (17770) Diagnoses Opioid use disorder, severe, in early remission, dependence F11.21
[2023-06-01 13:04] VITALS: BP 110/70; PULSE 87; O2SAT 96
== END 2023-06-01 13:37 | disposition home or self-care (01) ==
PROVIDERS: PCP Physician Assistant; Visit Provider Nurse Practitioner Psychiatric/Mental Health
DX: F11.21 Opioid dependence, in remission (principal)
CPT/HCPCS: 99213

== ENCOUNTER → 2023-06-01 12:58 | Outpatient (BNVA) | payer OTHER, SELFPAY | PROVIDERS: PCP Physician Assistant; Visit Provider Nurse Practitioner Psychiatric/Mental Health | DX: Z51.81 Encounter for therapeutic drug level monitoring (principal); F11.21 Opioid dependence, in remission | CPT/HCPCS: 99212 ==

== ENCOUNTER 2023-06-08 08:38 | Outpatient (AMB) | payer OTHER, SELFPAY ==
[2023-06-08 08:52] VITALS: BP 92/60; PULSE 67; O2SAT 100; BMI 23.7
--- NOTE | 2023-06-08 08:52 | MHC.PC.OV ---
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 per policy Accompanied by: Self / Same As Patient Allergies No Known Allergies Allergy (Verified 06/08/23 09:14) Medication List - Last Reconciled 06/08/23 by Jet Zheng PA-C buprenorphine-naloxone 8-2 mg (Suboxone) 1 film sublingual BID 30 days bupropion HCl (Wellbutrin SR) 150 mg PO BID 30 days comp.stocking,thigh,long,small As directed naloxone 4 mg/actuation (Narcan) 4 mg intranasal Q2M PRN topiramate 50 mg (2 x 25 mg) PO DAILY Tobacco use date assessed: 06/08/23 Dental Screening Dental Screen Date: 06/08/23 Did you have a dental visit in the last 12 months?: No Did you have a dental problem in the last 6 months where you did not have access to dental care?: No Was dental information given to patient?: Patient has dentist HPI Annual PE HPI Details Patient is a 47 year female here today for routine annual physical. Patient has a past medical history significant for opiate dependency in remission, tobacco dependency. . Concern--> reports suffering with irregular menses and spotting. She would like to establish care with a car examiner again. Also has been experiencing allergic rhinitis and would like a pill for her allergies. Opiate dependency: Patient continues to follow [facility] and continues On Suboxone and has been sober over 11 month now. .. Varicose veins: Varicose veins reoccurred worse in her right lower extremity, often swells and has a burning sensation. Does have compression socks she seldomly wears.. Has had a procedure over her left lower extremity which have been successful, unfortunately had another and varicose veins have reoccurred. She would like to see vascular for procedure .. Tobacco dependency: She continues to smoke cigarettes and electronic tobacco. She does she needs to completely quit and has found it difficult to do so. Colon cancer screening: Willing to do Cologuard Breast cancer screening: needs mammo- will order . WHAT JOB TITLES MEAN: Need WHAT JOB TITLES MEAN - PAP - has a history of atypical cells on Pap Vaccines: Up-to-date with COVID vaccine, tetanus vaccine, pneumonia vaccine, Delines flu vaccine [facility] Medical History Cocaine use disorder Opioid use disorder, severe, dependence Other group home (current) drug therapy Depression Opioid use disorder Family History Father COPD (chronic obstructive pulmonary disease) Mother No problems noted. Social History (Updated 06/08/23 @ 09:21 by Jet Zheng PA-C) Housing: House Alcohol intake: never Patient Tobacco Use Status: Current everyday Tobacco user Tobacco use type: Cigarette and Smokeless Tobacco Cigarettes Per Day: 6 e-Cigarette/Vaping Use: Currently Using Current occupational status: employed Current occupation: [employer] Cognitive needs: No Hearing needs: No Vision needs: No Questionnaire PHQ-9 Over the last 2 weeks, how often have you been bothered by any of the following problems? 1. Little interest or pleasure in doing things: not at all 2. Feeling down, depressed, or hopeless: not at all 3. Trouble falling or staying asleep, or sleeping too much: not at all 4. Feeling tired or having little energy: not at all 5. Poor appetite or overeating: not at all 6. Feeling bad about yourself - or that you are a failure or have let yourself or your family down: not at all 7. Trouble concentrating on things, such as reading the newspaper or watching television: not at all 8. Moving or speaking so slowly that other people could have noticed. Or the opposite - being so fidgety or restless that you have been moving around a lot more than usual: not at all 9. Thoughts that you would be better off or of hurting yourself in some way: not at all Total score: 0 Depression Screening Interpretation: Negative Depression Screening Done: Yes 95396 - PHQ-9 Billing: Yes Source: Developed by Drs. Luis E Santana, Stefanie Sanchez, Ronni Aldana and colleagues, with an educational prashant from [employer]. Thrive Questionnaire Date Thrive assessed: 06/08/23 I am a: Patient What is your living situation today?: I have a steady place to live Within the past 12 months, did the food you bought not last and you didn't have the money to get more?: Never true Within the past 12 months, did you worry whether your food would run out before you got money to buy more?: Never true Do you have trouble paying for medicines?: No Do you have trouble getting transportation to medical appointments?: No Do you have trouble paying your heating and electricity bill?: No Do you have trouble taking care of your child, family member or friend?: No Do you have trouble with day-to-day activities such as bathing, preparing meals, shopping, managing finances, etc.?: No Are you currently unemployed and looking for a job?: No Are you interested in more education?: No Please select the resources that you would like help with: None THRIVE Score: 0 AUDIT C Alcohol Use Questionnaire (AUDIT-C) 1. How often do you have a drink containing alcohol?: Never 3. How often do you have six or more drinks on one occasion?: Never Total Score: 0 FRANK-7 AMB Questionnaire FRANK-7 Date FRANK - 7 assessed: 06/08/23 Feeling nervous, anxious, or on edge: 0 = Not at all Not being able to stop or control worryin = Not at all Worrying too much about different things: 0 = Not at all Trouble relaxin = Not at all Being so restless that it is hard to sit still: 0 = Not at all Becoming easily annoyed or irritable: 0 = Not at all Feeling afraid as if something awful might happen: 0 = Not at all Total FRANK-7 score (0-4 normal; 5-9 mild; 10-14 moderate; 15-21 severe): 0 Source: Developed by Drs. Luis E Santana, Stefanie Sanchez, Ronni Aldana and colleagues, with an educational prashant from [employer]. FRANK-7 Assessment Billing FRANK-7 Assessment Tool: FRANK-7 Assessment 35288 Review of Systems Const Denies body aches, Denies chills, Denies excessive sweating, Denies fatigue, Denies fever(s) and Denies headache(s) Eyes Denies blurry vision ENT Denies dysphagia, Denies vertigo, Denies dizziness, Denies headache(s), Denies hearing loss and Denies tinnitus Card Denies chest pain, Denies chest pain with activity, Denies syncope, Denies irregular heart rhythm and Denies dyspnea Resp Denies chest congestion, Denies cough, Denies hemoptysis, Denies dyspnea and Denies wheezing GI Denies abdominal pain, Denies melena, Denies hematochezia, Denies coffee ground emesis, Denies dysphagia, Denies diarrhea, Denies nausea and Denies vomiting Denies urinary frequency, Denies dysuria, Denies urinary hesitancy and Denies urinary urgency Musc Denies arthralgias, Denies limited range of motion, Denies muscle cramps and Denies muscle weakness Skin/Breast Denies rash and Denies skin ulcer Neuro Denies Abnormal speech present, Denies confusion, Denies vertigo, Denies dizziness, Denies syncope, Denies headache(s), Denies memory loss and Denies seizure-like activity Psych Denies anxiety, Denies confusion, Denies depression, Denies memory loss, Denies panic attacks and Denies paranoia Endo Denies excessive sweating, Denies fatigue, Denies flushing, Denies polydipsia and Denies polyuria Aller/Immun Denies wheezing Physical exam (Primary Care) Vital Signs: Last Vital Signs Pulse 67 06/08/23 08:52 BP 92/60 06/08/23 08:52 Pulse Ox 100 06/08/23 08:52 Oxygen Delivery Method Room Air 06/08/23 08:52 BMI result Body Mass Index 23.7 Tobacco/Smoking Status: Tobacco use Status Tobacco use date assessed 06/08/23 06/08/23 09:02 Patient Tobacco Use Status Current everyday Tobacco 06/08/23 09:21 Tobacco use type Cigarette,Smokeless Tobacco 06/08/23 09:21 e-Cigarette/Vaping Use Currently Using 06/08/23 09:21 Are you ready to quit: No Tobacco cessation counseling provided: Yes Items discussed: Nicotine replacement Relapse Prevention: discussed the importance of a supportive environment, discussed negative mood or depression after quitting, weight gain after smoking is common and discussed dietary, exercise and/or lifestyle changes Number of minutes spent counselin CPT code: 54728 - 4-10 Minutes PHQ-9: PHQ-9 Score PHQ-9: Total score 0 06/08/23 09:40 Depression Screening Interpretation: Negative Thrive Assessment: Date of Thrive Assessment Date Thrive assessed 06/08/23 06/08/23 08:53 Const General: cooperative, comfortable, no acute distress, alert and awake; No confusion Orientation/consciousness: oriented to person, oriented to place, patient oriented x3 and No confusion HENMT Head: Yes normocephalic Ears: external ears normal and TM's normal bilaterally Face and sinus: No sinus tenderness Mouth: Normal oral and palatal mucosa present and tongue normal Teeth and gingiva: dentition normal and gingiva normal Throat: Yes posterior oropharynx normal, Yes tonsils normal and Yes uvula midline Eyes Conjunctivae: conjunctivae normal Sclerae: sclerae normal Pupils: Equal, round and reactive pupils present EOM: EOMs intact bilaterally Direct Ophthalmoscopy: No no photophobia Neck Neck: Yes no lymphadenopathy, No tender and Yes no JVD Thyroid: Thyroid normal Carotids: no bruits Chest Chest palpation & inspection: no tenderness Resp Effort & Inspection: normal respiratory effort, no audible wheezes, not labored and no stridor Auscultation: no crackles, no rales, no rhonchi and no wheezes Cardio Jugular venous distension: no JVD Rate: regular rate, not bradycardic and not tachycardic Rhythm: regular rhythm Bruits: no carotid bruits Peripheral pulses: Peripheral pulses 2+ throughout GI Inspection: Yes normal to inspection, No abdominal wall ecchymosis and No visible herniation Palpation (GI): Soft to palpation, nontender, no guarding, not rigid and No hepatosplenomegaly present Auscultation: normoactive bowel sounds General: Yes no CVA tenderness Back/Spine/Pelvis Back: no CVA tenderness and No back tenderness Cervical Spine: cervical ROM normal Thoracic/Lumbar Spine: thoracic and lumbar spine normal to inspection, straight leg raise negative bilaterally, No thoraco-lumbar ROM limited and No lumbar spinal tenderness Skin Lesions: no lesions Rashes: no rashes Wounds: no wounds Neuro General: oriented to person, oriented to place, patient oriented x3, CN's II-XI intact bilaterally and No confusion Cranial nerves: Yes Equal, round and reactive pupils present and Yes Normal accommodation reflex present Cognition (Neuro): normal cognition Speech: No Abnormal speech present Gait exam (Neuro): Normal gait present Motor exam (neuro): 5/5 motor strength present throughout Extrem Right upper extremity: full ROM; no cyanosis Left upper extremity: full ROM; no cyanosis Right lower extremity: no edema Left lower extremity: no edema Upper/lower leg/hip images: 1. LARGE DILATED VEINS NOTED OVER LOWER RIGHT EXTREMITY. Psych Appearance: grossly normal Mental Status: mental status grossly normal Affect: normal affect Attitude: cooperative Thought process: Normal thought process present Assessment and Plan Assessment & Plan (1) Annual physical exam: Code(s): Z00.00 - Encounter for general adult medical examination without abnormal findings (2) Opioid use disorder, severe, in early remission, dependence: Code(s): F11.21 - Opioid dependence, in remission Plan: Continues to be sober from opiates. Continues on Suboxone and sees [facility]. (3) Depression: Comment: Wellbutrin dose working well, stable mood and affect. Code(s): F32.A - Depression, unspecified Qualifiers: Active/Remission status: in partial remission Depression Type: major depressive disorder Major depression recurrence: recurrent Qualified Code(s): F33.41 - Major depressive disorder, recurrent, in partial remission Plan: Patient's depression is well controlled with current dose Wellbutrin. (4) Tobacco dependence: Code(s): F17.200 - Nicotine dependence, unspecified, uncomplicated Plan: Continues to issues with cut down smoking. She does both electronic cigarettes and regular cigarettes. She has not interested in nicotine replacement at this time for (5) Breast cancer screening: Code(s): Z12.39 - Encounter for other screening for malignant neoplasm of breast Qualifiers: Breast cancer screening modality: mammogram Qualified Code(s): Z12.31 - Encounter for screening mammogram for malignant neoplasm of breast Plan: Willing to do mammogram (6) Cervical cancer screening: Code(s): Z12.4 - Encounter for screening for malignant neoplasm of cervix Plan: Will refer to copyright expert for Pap screening. (7) Atypical squamous cell changes of cervix undetermined significance favor benign: Code(s): R87.610 - Atypical squamous cells of undetermined significance on cytologic smear of cervix (ASC-US) Plan: As above has history of atypical squamous cell of the cervix. Needs repeat Pap (8) Allergic rhinitis: Code(s): J30.9 - Allergic rhinitis, unspecified Qualifiers: Allergic rhinitis seasonality: unspecified Allergic rhinitis trigger: unspecified Qualified Code(s): J30.9 - Allergic rhinitis, unspecified (9) Varicose veins of right lower extremity with inflammation: Code(s): I83.11 - Varicose veins of right lower extremity with inflammation Plan: Has large dilated varicosities in her right lower extremity. Has had vein surgery in the past which was helpful. Did have another 4 years ago and veins in her right lower extremity dilated again. They are symptomatic. She would like to see vascular for another procedure. Orders: Orders Comprehensive [place]. Panel Fast 06/08/23 Z13.1 - Encounter for screening for diabetes mellitus Complete Blood Count no Diff 06/08/23 I83.891 - Varicose veins of right lower extremity with other complications MM screening mammo BI 06/08/23 Z12.31 - Encounter for screening mammogram for malignant neoplasm of breast Referrals [employer]ICER Referral R87.610 - Atypical squamous cells of undetermined significance on cytologic smear of cervix (ASC-US), Z12.4 - Encounter for screening for malignant neoplasm of cervix Vascular Surgery Referral I73.9 - Peripheral vascular disease, unspecified Cologuard Test J30.9 - Allergic rhinitis, unspecified, Z12.11 - Encounter for screening for malignant neoplasm of colon Medications: New loratadine 10 mg PO DAILY 90 days 90 tabs 1RF J30.9 - Allergic rhinitis, unspecified Coding Level of Care Code Est Pt Prev Care 40-64y(21278) Diagnoses Annual physical exam Z00.00 Opioid use disorder, severe, in early remission, dependence F11.21 Recurrent major depressive disorder, in partial remission F33.41 Active/Remission status: in partial remission Depression Type: major depressive disorder Major depression recurrence: recurrent Tobacco dependence F17.200 Encounter for screening mammogram for malignant neoplasm of breast Z12.31 Breast cancer screening modality: mammogram Cervical cancer screening Z12.4 Atypical squamous cell changes of cervix undetermined significance favor benign R87.610 Allergic rhinitis, unspecified seasonality, unspecified trigger J30.9 Allergic rhinitis seasonality: unspecified Allergic rhinitis trigger: unspecified Varicose veins of right lower extremity with inflammation I83.11 Additional Codes FRANK-7 Assessment Billing - FRANK-7 Assessment Tool: FRANK-7 Assessment 18260 ([id number]) Vital Signs *Quality* - CPT code: 05155 - 4-10 Minutes ([id number])
== END 2023-06-08 09:38 | disposition home or self-care (01) ==
PROVIDERS: PCP Physician Assistant; Visit Provider Physician Assistant
DX: Z00.00 Encounter for general adult medical examination without abnormal findings (principal); F11.21 Opioid dependence, in remission; F33.41 Major depressive disorder, recurrent, in partial remission; F17.210 Nicotine dependence, cigarettes, uncomplicated; R87.610 Atypical squamous cells of undetermined significance on cytologic smear of cervix (ASC-US); J30.9 Allergic rhinitis, unspecified; I83.11 Varicose veins of right lower extremity with inflammation
CPT/HCPCS: 99396

== ENCOUNTER 2023-06-22 08:41 | Outpatient (REF) | payer OTHER, SELFPAY ==
--- NOTE | ~2023-06-22 | US_ITS ---
EXAMINATION: US LOWER EXTREMITY VENOUS (REFLUX EXAM), BILATERAL CLINICAL INDICATION: Chronic venous insufficiency with lower extremity varicose veins and pain. History of right great saphenous vein stripping and left wrist saphenous vein procedure COMPARISON: None. TECHNIQUE: Color flow triplex imaging and compression Doppler was performed to evaluate both the deep and the superficial systems bilaterally. To evaluate the superficial system, the examination was performed in the upright position. Color-flow Doppler ultrasound and compression ultrasound were utilized. In addition, maneuvers were utilized to demonstrate reflux. FINDINGS: 1. DEEP VENOUS ULTRASOUND OF THE RIGHT LOWER EXTREMITY: Common Femoral Vein: Compressible, normal respiratory variation and augmented flow. Femoral Vein: Compressible, normal color flow and augmentation. Popliteal Vein: Compressible, normal augmentation. Deep Reflux: There is no evidence of reflux in the deep system in either the common femoral vein, superficial femoral or the popliteal vein. There is no evidence of a Walden's cyst. 2. SUPERFICIAL ULTRASOUND WITH DOPPLER OF RIGHT LOWER EXTREMITY: GREAT SAPHENOUS VEIN: Saphenofemoral Junction: 0.7 cm; Reflux: 2068 ms Proximal Thigh: 0.6 cm; Reflux: 0 ms Mid Thigh: Not visualized Above Knee: Not visualized At Knee: 0.2 cm; Reflux: 0 ms Below Knee: 0.3 cm; Reflux: 0 ms Mid Calf: 0.3 cm; Reflux: 2656 ms Ankle: 0.3 cm; Reflux: 2092 ms DUPLICATED MEDIAL GREAT SAPHENOUS VEIN: Diameter: None imaged Reflux: NA DUPLICATED LATERAL GREAT SAPHENOUS VEIN: Diameter: None imaged Reflux: NA SMALL SAPHENOUS VEIN: Saphenopopliteal Junction: 0.3 cm; Reflux: 0 ms Proximal: 0.4 cm; Reflux: 0 ms Distal: 0.2 cm; Reflux: 0 ms VEIN OF GIACOMINI: Size: NA Reflux: NA PERFORATORS: Location: None significant Size: NA Reflux: NA VARICOSITIES: Location: Large varicose vein arising from the residual great saphenous vein in the proximal thigh and then extending throughout the mid and distal thigh into the calf. Extensive varicose veins also throughout the calf arising from the residual great saphenous vein. Size: Ranging from 0.3 to 0.9 cm Reflux: Ranging from 1740 ms to 2940 ms 3. DEEP VENOUS ULTRASOUND OF THE LEFT LOWER EXTREMITY: Common Femoral Vein: Compressible, normal respiratory variation and augmented flow. Femoral Vein: Compressible, normal color flow and augmentation. Popliteal Vein: Compressible, normal augmentation. Deep Reflux: There is no evidence of reflux in the deep system in either the common femoral vein, superficial femoral or the popliteal vein. There is no evidence of a Walden's cyst. 4. SUPERFICIAL ULTRASOUND WITH DOPPLER OF LEFT LOWER EXTREMITY: GREAT SAPHENOUS VEIN: Saphenofemoral Junction: 0.5 cm; Reflux: 0 ms Proximal Thigh: 0.5 cm; Reflux: 0 ms Mid Thigh: 0.4 cm; Reflux: 0 ms Above Knee: 0.3 cm; Reflux: 0 ms At Knee: 0.3 cm; Reflux: 0 ms Below Knee: Not visualized cm; Reflux: 0 ms Mid Calf: Not visualized cm; Reflux: 0 ms Ankle: 0.3 cm; Reflux: 2700 ms DUPLICATED MEDIAL GREAT SAPHENOUS VEIN: Diameter: None imaged Reflux: NA DUPLICATED LATERAL GREAT SAPHENOUS VEIN: Diameter: None imaged Reflux: NA SMALL SAPHENOUS VEIN: Saphenopopliteal Junction: Not visualized Proximal: Not visualized Distal: Not visualized VEIN OF GIACOMINI: Size: NA Reflux: NA PERFORATORS: Location: None significant Size: NA Reflux: NA VARICOSITIES: Location: Multiple varicose veins arising from of the great saphenous vein in the calf Size: Ranging from 0.3 to 0.5 cm Reflux: Ranging from 0 ms to 2544 ms US/US venous duplex LE BI IMPRESSION: Right: Great saphenous vein in the mid thigh to the knee is not visualized consistent with prior vein stripping. There is severe reflux in the residual great saphenous vein in the proximal thigh with large varicose vein arising from of this branch extending throughout the thigh and calf. There are multiple varicose veins arising from the residual great saphenous vein in the calf as described above Left: Great saphenous vein and small saphenous vein within the calf not visualized. Multiple varicose veins arising from the residual great saphenous vein as described above
== END 2023-06-22 08:42 | disposition home or self-care (01) ==
LOC: HO.US 08:41
PROVIDERS: PCP Physician Assistant; Visit Provider Surgery Vascular Surgery
DX: I83.893 Varicose veins of bilateral lower extremities with other complications (principal)
CPT/HCPCS: 93970

== ENCOUNTER 2023-06-26 13:07 | Outpatient (AMB) | payer OTHER, SELFPAY ==
--- NOTE | 2023-06-26 13:13 | MHC.AM.SUB ---
Intake Vital Signs 06/26/23 13:20 BP 102/70 Blood Pressure Location Lt radial Position Sitting Intake Visit Reasons: MAT VISIT Intake Note: the patient presents for a mat visit Apparel Cutter Required: No Allergies No Known Allergies Allergy (Verified 06/26/23 13:14) Do you need a note to return to daycare/school/sports/work: No HPI MAT VISIT HPI Details Patient presents for follow up This month will be one year since last substance use -one year in recovery Has seen vascular, completed colonoscopy, mammogram next week. Has a car now. Still working. Reflecting on all things that have happened over the last year. [facility] Medical History Cocaine use disorder Opioid use disorder, severe, dependence Other [place] [facility] (current[facility] drug therapy Depression Opioid use disorder Family History Father COPD (chronic obstructive pulmonary disease) Mother No problems noted. Social History (Updated 06/08/23 @ 09:21 by Jet Zheng PA-C) Housing: House Alcohol intake: never Patient Tobacco Use Status: Current everyday Tobacco user Tobacco use type: Cigarette and Smokeless Tobacco Cigarettes Per Day: 6 e-Cigarette/Vaping Use: Currently Using Current occupational status: employed Current occupation: [employer] Cognitive needs: No Hearing needs: No Vision needs: No Review of Systems Const Reports as per HPI Physical Exam Vital Signs: Last Vital Signs BP 102/70 06/26/23 13:20 Const General: cooperative, healthy appearing, comfortable, no acute distress, well developed and alert Nutritional Appearance: average body habitus Orientation/consciousness: patient oriented x3 Limitations: no limitations Neuro General: patient oriented x3 Psych Appearance: grossly normal Mental Status: mental status grossly normal Speech and movement: Normal speech and movement present Affect: normal affect Attitude: cooperative Thought process: Normal thought process present Thought content: Normal thought content present Insight: Good insight present (Psych) Judgement: Good judgement present (Psych) Assessment & Plan Assessment & Plan (1) Opioid use disorder, severe, in early remission, dependence: Code(s): F11.21 - Opioid dependence, in remission Plan: continue suboxone at current dose follow up 4 weeks relapse prevention discussion Medications: Refilled buprenorphine-naloxone 8-2 mg (Suboxone) 1 film sublingual BID 60 ea 0RF 30 days Coding Level of Care Code Est Pt Level 3 (01910) Diagnoses Opioid use disorder, severe, in early remission, dependence F11.21
[2023-06-26 13:20] VITALS: BP 102/70
== END 2023-06-26 13:51 | disposition home or self-care (01) ==
PROVIDERS: PCP Physician Assistant; Visit Provider Nurse Practitioner Psychiatric/Mental Health
DX: F11.21 Opioid dependence, in remission (principal)
CPT/HCPCS: 99213

== ENCOUNTER → 2023-06-26 13:07 | Outpatient (BNVA) | payer OTHER, SELFPAY | PROVIDERS: PCP Physician Assistant; Visit Provider Nurse Practitioner Psychiatric/Mental Health | DX: Z51.81 Encounter for therapeutic drug level monitoring (principal); F11.21 Opioid dependence, in remission | CPT/HCPCS: 99212 ==

== ENCOUNTER 2023-07-01 07:39 | Outpatient (REF) | payer OTHER, SELFPAY ==
--- NOTE | ~2023-07-01 | MM_ITS ---
EXAMINATION: MM SCREENING DIGITAL BREAST TOMOSYNTHESIS, BILATERAL CLINICAL INFORMATION: Screening. Asymptomatic. COMPARISON: Mammography: This is a baseline mammogram. TECHNIQUE: Digital breast tomosynthesis is performed in both the craniocaudal and mediolateral oblique views along with computer-aided detection (CAD). Synthesized 2D images are generated from the tomosynthesis. FINDINGS: The breasts are heterogeneously dense, which may obscure small masses (ACR BI-RADS breast composition Category c). There are no significant masses, abnormal calcifications, or other abnormalities. MM/MM tomosynthesis screening BI IMPRESSION: No mammographic evidence of malignancy. ASSESSMENT: BI-RADS BI-RADS 1 - Negative RECOMMENDATION: Routine annual mammography screening. 1 year F/U This examination should not preclude the clinical evaluation of a suspicious palpable abnormality. This patient's information was entered into a reminder system with a target due date for their next mammogram.
== END 2023-07-01 07:40 | disposition home or self-care (01) ==
LOC: HO.MAMMO 07:39
PROVIDERS: PCP Physician Assistant; Visit Provider Physician Assistant
DX: Z12.31 Encounter for screening mammogram for malignant neoplasm of breast (principal)
CPT/HCPCS: 77063; 77067

== ENCOUNTER → 2023-07-01 07:45 | Outpatient (BNV) | payer OTHER, SELFPAY | PROVIDERS: PCP Physician Assistant; Visit Provider Radiology Diagnostic Radiology | DX: Z12.31 Encounter for screening mammogram for malignant neoplasm of breast (principal) | CPT/HCPCS: 77063; 77067 ==

== ENCOUNTER 2023-07-17 11:46 | Outpatient (REF) | payer OTHER, SELFPAY ==
[2023-07-21 21:08] LABS: HPV mRNA E6/E7 rflx Not Detected (Not Detected)
== END 2023-07-17 11:47 | disposition home or self-care (01) ==
LOC: HO.LNP 11:46
PROVIDERS: PCP Physician Assistant; Visit Provider Obstetrics & Gynecology
DX: Z01.419 Encounter for gynecological examination (general) (routine) without abnormal findings (principal); Z11.51 Encounter for screening for human papillomavirus (HPV)
CPT/HCPCS: 87624; 88142; 99386

== ENCOUNTER 2023-07-17 11:46 | Outpatient (AMB) | payer OTHER, SELFPAY ==
[2023-07-17 12:10] VITALS: BP 92/66; BMI 23.7
--- NOTE | 2023-07-17 12:10 | MHC.OFFVIS ---
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 Complaining of irregular menstrual cycles over the last few months Last Pap/HPV was ascus/HPV negative in 06/26 Last Mammogram was done on 07/01/2023 the results are still pending No previous screening colonoscopy [facility] Medical History Cocaine use disorder Opioid use disorder, severe, dependence Other halfway (current) drug therapy Depression Opioid use disorder Surgical History History of loop electrical excision procedure (LEEP) Hx of tubal ligation Family History Father COPD (chronic obstructive pulmonary disease) Mother No problems noted. Social History Housing: House Alcohol intake: never Patient Tobacco Use Status: Current everyday Tobacco user Tobacco use type: Cigarette and Smokeless Tobacco Cigarettes Per Day: 6 e-Cigarette/Vaping Use: Currently Using Current occupational status: employed Current occupation: [employer] Cognitive needs: No Hearing needs: No Vision needs: No Female Reproductive History Menstrual Age of Menarche: 16 Duration of menses: other control method: permanent sterilization Total pregnancies: 5 Full term: 3 Number of Living Children: 3 Ab induced: 1 Ab spontaneous: 1 Date of last pap smear: 06/11/18 (ASCUS) History of abnormal pap smear: Yes Date of Mammogram: 07/01/23 Review of Systems Const All systems reviewed & are unremarkable except as noted in HPI and below Card Reports as per HPI Resp Reports as per HPI GI Reports as per HPI and Reports no additional complaints Reports as per HPI Physical Exam Vital Signs: Last Vital Signs BP 92/66 07/17/23 12:10 BMI result Body Mass Index 23.7 Const General: cooperative, healthy appearing and comfortable Chest Chest palpation & inspection: normal inspection of the chest and normal palpation of entire chest wall Breast/axilla inspection: normal inspection of the breasts and normal inspection of the axillae Breast/axilla palpation: normal palpation of the breasts, normal palpation of the axillae and no axillary lymphadenopathy Resp Effort & Inspection: normal respiratory effort Auscultation: clear to auscultation bilaterally Percussion: percussion normal Cardio Palpation: normal PMI Rate: regular rate Rhythm: regular rhythm Heart sounds: no murmurs and no rubs Peripheral pulses: Peripheral pulses 2+ throughout GI Inspection: Yes normal to inspection Palpation (GI): Soft to palpation, nontender, no guarding, not rigid and No hepatosplenomegaly present Percussion: Yes normal to percussion Auscultation: normal bowel sounds Rectal Exam - Female: deferred General: Yes bladder normal to palpation External Female Exam: No lesion Speculum Exam - Vagina: normal appearance of the vagina, normal palpation, normal vaginal discharge and not erythematous Speculum Exam - Cervix: normal appearance of the cervix and normal palpation Bimanual exam- vagina & uterus: normal bimanual exam, normal palpation, uterine size normal, bladder normal to palpation, consistency normal and normal palpation Bimanual Exam- Adnexa, other: normal adnexae, no masses and no tenderness Assessment & Plan Assessment & Plan (1) Well woman exam: Code(s): Z01.419 - Encounter for gynecological examination (general) (routine) without abnormal findings Plan: Co testing done. Counseled the patient about the recommended dietary allowance of 1200 mg of Calcium & 600 IU of vitamin D. The patient was referred to GI for screening colonoscopy . The patient was instructed to perform monthly self-breast exams and schedule annual exam in a year. All questions answered and the patient verbalized understanding. (2) Abnormal uterine bleeding: Code(s): N93.9 - Abnormal uterine and vaginal bleeding, unspecified Plan: Co testing done, GC and chlamydia taken CBC, TSH, HCG, prolactin, and pelvic ultrasound ordered. Discussed with the patient the different causes of abnormal bleeding including thyroid disorders, uterine and ovarian pathology, endometrial hyperplasia, carcinoma and other potential causes. Discussed with the patient the work up including CBC (to r/o anemia), TSH, pelvic Ultrasound, endometrial biopsy to r/o endometrial pathology. All questions answered and the patient verbalized understanding. Instructed the patient to schedule an appointment for an endometrial biopsy in 2 weeks. Orders: Orders Pap Smear Today Z01.419 - Encounter for gynecological examination (general) (routine) without abnormal findings HCG Quantitative Today N93.9 - Abnormal uterine and vaginal bleeding, unspecified US pelvic and transvaginal Today N93.9 - Abnormal uterine and vaginal bleeding, unspecified Lutenizing Hormone Today N93.9 - Abnormal uterine and vaginal bleeding, unspecified Follicle Stimulating Hormone Today N93.9 - Abnormal uterine and vaginal bleeding, unspecified CT NG by PCR Today Z20.2 - Contact with and (suspected) exposure to infections with a predominantly sexual mode of transmission Complete Blood Count no Diff Today N93.9 - Abnormal uterine and vaginal bleeding, unspecified TSH reflex Free T4 Today N93.9 - Abnormal uterine and vaginal bleeding, unspecified Prolactin Today N93.9 - Abnormal uterine and vaginal bleeding, unspecified Referrals Gastroenterology Referral Z12.11 - Encounter for screening for malignant neoplasm of colon Coding Level of Care Code New Pt Prev Care 40-64y(42069) Diagnoses Well woman exam Z01.419 Abnormal uterine bleeding N93.9
== END 2023-07-17 12:37 | disposition home or self-care (01) ==
PROVIDERS: PCP Physician Assistant; Visit Provider Obstetrics & Gynecology
DX: Z01.419 Encounter for gynecological examination (general) (routine) without abnormal findings (principal); N93.9 Abnormal uterine and vaginal bleeding, unspecified
CPT/HCPCS: 99386

== ENCOUNTER 2023-07-17 12:42 | Outpatient (REF) | payer OTHER, SELFPAY ==
[2023-07-17 13:22] LABS: Hematocrit 38.9 % (37.0-47.0); Hemoglobin 13.2 g/dl (12.0-16.0); Mean Corpuscular HGB Conc 33.9 g/dl (31.0-35.0); Mean Corpuscular Hemoglobin 29.5 pg (27.0-33.0); Mean Corpuscular Volume 86.8 fL (80.0-98.0); Mean Platelet Volume 9.8 fL (9.4-12.3); Platelet Count 199 X10*3/uL (160-400); Red Blood Count 4.48 X10*6/uL (4.20-5.50); White Blood Count 3.6 X10*3/uL (4.8-10.8)
[2023-07-17 14:42] LABS: HCG Quantitative < 2 mIU/mL; TSH reflex Free T4 1.34 uIU/mL (0.32-4.0)
[2023-07-17 18:49] LABS: CT PCR NOT DETECTED (Not Detect.); NG PCR NOT DETECTED (Not Detect.)
[2023-07-18 09:53] LABS: Follicle Stimulating Hormone 13.5 mIU/mL; Lutenizing Hormone 9.2 mIU/mL
== END 2023-07-17 12:43 | disposition home or self-care (01) ==
LOC: HO.LAB 12:42
PROVIDERS: Visit Provider Obstetrics & Gynecology
DX: N93.9 Abnormal uterine and vaginal bleeding, unspecified (principal); Z20.2 Contact with and (suspected) exposure to infections with a predominantly sexual mode of transmission
CPT/HCPCS: 0353U; 83001; 83002; 84146; 84443; 84702; 85027

== ENCOUNTER 2023-07-20 14:29 | Outpatient (REF) | payer OTHER, SELFPAY ==
--- NOTE | ~2023-07-20 | US_ITS ---
EXAMINATION: US PELVIS CLINICAL INFORMATION: Abnormal uterine bleeding. 47-year-old with irregular LMP. COMPARISON: None available. TECHNIQUE: Ultrasound of the pelvis is performed using both transabdominal and transvaginal transducers along with Doppler. Transvaginal imaging is performed due to inadequate visualization transabdominally. FINDINGS: Uterus: The uterus is anteverted and measures 7.7 x 4.0 x 4.9 cm. The double wall endometrial thickness is 1.7 mm. There is a small cystic area seen in the uterus adjacent to the myometrial/endometrial junction measuring 4 mm. The uterus is smooth in contour and has normal myometrial echogenicity. No visible fibroid. Adnexa: Right ovary is not visualized, no large right adnexal mass. There is normal color flow to the adnexa. There is no ovarian torsion. There is no pelvic ascites or fluid collection. Left ovary measures 3.7 x 1.9 x 3.5 cm. 2.3 cm avascular intraovarian cyst with peripheral vascularity and low level internal echoes. US/US pelvic and transvaginal IMPRESSION: Left intraovarian 2.3 cm avascular intraovarian cyst with peripheral vascularity and low level internal echoes may reflect a hemorrhagic cyst. Recommend follow-up in 6-12 weeks to assess for resolution. 4 mm cyst seen adjacent to the myometrial/endometrial junction may reflect an adenomyoma.
== END 2023-07-20 14:30 | disposition home or self-care (01) ==
LOC: HO.US 14:29
PROVIDERS: PCP Physician Assistant; Visit Provider Obstetrics & Gynecology
DX: N93.9 Abnormal uterine and vaginal bleeding, unspecified (principal)
CPT/HCPCS: 76830; 76856

== ENCOUNTER 2023-07-25 14:13 | Outpatient (AMB) | payer OTHER, SELFPAY ==
--- NOTE | 2023-07-25 14:16 | MHC.OFFVIS ---
Intake Intake Visit Reasons: follow up US 06/22/23 Intake Note: Patient presents for follow up , had a US on 06/22/23. States her right leg is worse than the left. Has bulging varicose veins that she states are worse than ever Has compression socks that she does not wear as much as she should Stands at work the entirety of her work shift. Allergies No Known Allergies Allergy (Verified 07/25/23 14:21) HPI follow up US 06/22/23 HPI Details Very pleasant 47-year-old female presents for follow-up regarding venous disease. She has significantly large clusters of varicose veins in the right leg thigh and calf area. She has had previous venous ablation is by Dr. Griffin several years prior. It has been affecting her work at [employer]. She now presents to us for follow-up with venous insufficiency testing. [facility] Medical History Cocaine use disorder Opioid use disorder, severe, dependence Other jail (current) drug therapy Depression Opioid use disorder Surgical History History of loop electrical excision procedure (LEEP) Hx of tubal ligation Family History Father COPD (chronic obstructive pulmonary disease) Mother No problems noted. Social History Housing: House Alcohol intake: never Patient Tobacco Use Status: Current everyday Tobacco user Tobacco use type: Cigarette and Smokeless Tobacco Cigarettes Per Day: 6 e-Cigarette/Vaping Use: Currently Using Current occupational status: employed Current occupation: [email or web address] Cognitive needs: No Hearing needs: No Vision needs: No Female Reproductive History Menstrual Age of Menarche: 16 Review of Systems Const Reports as per HPI ENT Reports no additional complaints Card Denies chest pain, Denies chest pain at rest and Denies chest pain with activity Resp Denies chest congestion and Denies cough GI Reports no additional complaints Musc Details: pain over varicosities, aching of lower extremities, swelling, cramping, heaviness and tiredness, itching Denies abnormal gait Skin/Breast Reports pruritus and Denies wounds Neuro Reports no additional complaints and Denies abnormal gait Psych Denies no additional complaints Physical Exam Const General: cooperative, healthy appearing and comfortable Orientation/consciousness: oriented to person, oriented to place and oriented to time Neck Carotids: no bruits Chest Chest palpation & inspection: normal inspection of the chest and normal palpation of entire chest wall Resp Effort & Inspection: normal respiratory effort and able to speak in complete sentences Cardio Rate: regular rate Heart sounds: S1 normal heart sound present and S2 normal heart sound present Peripheral pulses: Peripheral pulses 2+ throughout GI Inspection: Yes normal to inspection Skin Other: +2 edema, large rope-like varicosities greater than 4 mm large cluster right thigh and calf CEAP Classification C4 - skin color changes Ep - Etiology Primary As - superficial veins P - reflux General skin exam: dry skin Neuro General: oriented to person, oriented to place and oriented to time Extrem Right lower extremity: full ROM, normal capillary refill and edema Left lower extremity: full ROM, normal capillary refill and edema Psych Mental Status: mental status grossly normal Results Reviewed Results Reviewed: Brief summary of venous insufficiency testing is as follows: right great saphenous vein: Positive right small saphenous vein: negative right accessory vein: none present left great saphenous vein: negative left small saphenous vein: negative left accessory vein: none present Please note there is no evidence of any venous aneurysms or significant tortuosity Assessment & Plan Assessment & Plan (1) Varicose veins of right lower extremity with inflammation: Code(s): I83.11 - Varicose veins of right lower extremity with inflammation Plan: This patient has varicose veins with inflammation. They continue to be a source of discomfort for the patient. The patient has tried conservative treatment with compression, leg elevation and exercise program for over 3 months time. They have been compliant with all treatment. This has provided minimal relief for the patient. I do not anticipate this course of treatment will alter the underlying etiology. The patient has been scheduled for lower extremity venous treatment inclusive of --- right great saphenous vein Cyanoacralate ablation. Risks, benefits, and complications of this procedure has been discussed in detail with the patient including but not limited to bleeding, infection, and the development of a DVT. The patient has demonstrated a clear understanding and has consented. We will schedule the patient as soon as possible. Thank you for allowing us to participate in this patient's care. If there are any questions or concerns please do not hesitate to contact us. Coding Level of Care Code Est Pt Level 4 (46654) Diagnoses Varicose veins of right lower extremity with inflammation I83.11
== END 2023-07-25 15:32 | disposition home or self-care (01) ==
PROVIDERS: PCP Physician Assistant; Visit Provider Surgery Vascular Surgery
DX: I83.11 Varicose veins of right lower extremity with inflammation (principal)
CPT/HCPCS: 99214

== ENCOUNTER → 2023-07-25 14:13 | Outpatient (BNVA) | payer OTHER, SELFPAY | PROVIDERS: PCP Physician Assistant; Visit Provider Surgery Vascular Surgery | DX: I83.11 Varicose veins of right lower extremity with inflammation (principal) | CPT/HCPCS: 99212 ==

== ENCOUNTER 2023-07-26 13:36 | Outpatient (AMB) | payer OTHER, SELFPAY ==
--- NOTE | 2023-07-26 13:33 | A.OFFVISCC_ITS ---
Vital Signs 07/26/23 13:39 BP 104/70 Blood Pressure Location Lt brachial Position Sitting Pulse 74 Pulse Source Pulse Oximeter Pulse Oximetry (%) 98 Oxygen Delivery Method Room Air Intake Visit Reasons: MAT VISIT Allergies No Known Allergies Allergy (Verified 07/26/23 13:33) HPI HPI MAT VISIT: Details: patient presents for follow up one year of no substane use still working happy to share all things she has been able to take care of mostly medical and dental appts still engaged in therapy seeing her daughters frequently [facility] Medical History (Updated 07/31/23 @ 20:43 by Marquita Rivas CNP) Opioid use disorder, severe, in early remission, dependence Cocaine use disorder Opioid use disorder, severe, dependence Other retirement (current) drug therapy Depression Opioid use disorder Surgical History History of loop electrical excision procedure (LEEP) Hx of tubal ligation Family History Father COPD (chronic obstructive pulmonary disease) Mother No problems noted. Social History Housing: House Alcohol intake: never Patient Tobacco Use Status: Current everyday Tobacco user Tobacco use type: Cigarette and Smokeless Tobacco Cigarettes Per Day: 6 e-Cigarette/Vaping Use: Currently Using Current occupational status: employed Current occupation: [employer] Cognitive needs: No Hearing needs: No Vision needs: No Female Reproductive History Menstrual Age of Menarche: 16 Review of Systems Const Reports as per HPI and Reports no additional complaints Physical Exam Vital Signs: Last Vital Signs Pulse 74 07/26/23 13:39 BP 104/70 07/26/23 13:39 Pulse Ox 98 07/26/23 13:39 Oxygen Delivery Method Room Air 07/26/23 13:39 Const General: cooperative, healthy appearing, comfortable, no acute distress, well developed and alert Nutritional Appearance: average body habitus Orientation/consciousness: patient oriented x3 Limitations: no limitations Neuro General: patient oriented x3 Psych Appearance: grossly normal Mental Status: mental status grossly normal Speech and movement: Normal speech and movement present Affect: normal affect Attitude: cooperative Thought process: Normal thought process present Thought content: Normal thought content present Insight: Good insight present (Psych) Judgement: Good judgement present (Psych) Assessment & Plan Assessment & Plan (1) Opioid use disorder, severe, in sustained remission: Code(s): F11.21 - Opioid dependence, in remission Category: Medical Plan: * continue suboxone at current dose * follow up one month Medications: Refilled buprenorphine-naloxone 8-2 mg (Suboxone) 1 film sublingual BID 60 ea 0RF 30 days topiramate 50 mg (2 x 25 mg) PO DAILY 60 tabs 3RF
[2023-07-26 13:39] VITALS: BP 104/70; PULSE 74; O2SAT 98
== END 2023-07-26 14:20 | disposition home or self-care (01) ==
PROVIDERS: PCP Physician Assistant; Visit Provider Nurse Practitioner Psychiatric/Mental Health
DX: F11.21 Opioid dependence, in remission (principal)
CPT/HCPCS: 99213

== ENCOUNTER → 2023-07-26 13:36 | Outpatient (BNVA) | payer OTHER, SELFPAY | PROVIDERS: PCP Physician Assistant; Visit Provider Nurse Practitioner Psychiatric/Mental Health | DX: F11.21 Opioid dependence, in remission (principal); F14.20 Cocaine dependence, uncomplicated; Z79.899 Other long term (current) drug therapy; Z51.81 Encounter for therapeutic drug level monitoring | CPT/HCPCS: 99212 ==

== ENCOUNTER 2023-08-17 14:37 | Outpatient (REF) | payer OTHER, SELFPAY | END 2023-08-17 14:38 | disposition home or self-care (01) | LOC: HO.LNP 14:37 | PROVIDERS: PCP Physician Assistant; Visit Provider Obstetrics & Gynecology | DX: N93.9 Abnormal uterine and vaginal bleeding, unspecified (principal); Z32.02 Encounter for pregnancy test, result negative | CPT/HCPCS: 58100; 81025; 88305 ==

== ENCOUNTER 2023-08-17 14:37 | Outpatient (AMB) | payer OTHER, SELFPAY ==
[2023-08-17 14:43] VITALS: BP 100/60; BMI 23.4
--- NOTE | 2023-08-17 14:43 | MHC.OFFVIS ---
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 Social History Housing: House Alcohol intake: never Patient Tobacco Use Status: Current everyday Tobacco user Tobacco use type: Cigarette and Smokeless Tobacco Cigarettes Per Day: 6 e-Cigarette/Vaping Use: Currently Using Current occupational status: employed Current occupation: [email or web address] Cognitive needs: No Hearing needs: No Vision needs: No Female Reproductive History Menstrual Age of Menarche: 16 Physical Exam Vital Signs: Last Vital Signs BP 100/60 08/17/23 14:43 BMI result Body Mass Index 23.4 Office Procedures Endometrial Biopsy Details: The patient was counseled regarding the indication and benefits of endometrial sampling to rule out endometrial pathology including not limited to endometrial hyperplasia or endometrial cancer and others; The alternatives (Either do nothing vs. hysteroscopy D&C) & the risks were discussed with the patient including but not limited: pain, uterine perforation, bleeding, infection, possible injury to bladder, bowel, ureter, possible need for blood transfusion with all its possible risks. The patient verbalized understanding all questions answered and signed consent. Urine test done in the office was negative The patient was placed into the dorsal lithotomy position; a speculum was inserted in the vagina. Using aseptic technique for the procedure, the cervix was cleansed with Betadine. The anterior lip of the cervix was grasped with a single tooth tenaculum. The uterus was sounded to 7 cm with a 4 mm Pipelle was used. Tissues samples were obtained and placed in formalin, in a patient labeled container and sent to the pathology department. At the end of the procedure, there was minimal bleeding noted The patient tolerated the procedure well and was discharged in good condition with the following instructions: Nothing in the vagina until the bleeding stops. No sex until the bleeding stops, to call if any of the following occurs: fever (>100.4), flu-like symptoms, abdominal pain, heavy bleeding, four smelling vaginal discharge. The patient was instructed to schedule a Follow up appointment in 2 weeks to discuss pathology results of the biopsy and treatment options. This note was generated with a voice recognition program. Some errors may have been overlooked during the review of this note. Sometimes these errors may affect the content or meaning of a given sentence. [id number] Biopsy Results AMB Test Urine AMB Test Urine Negative Last Edit by Madeleine Rodríguez CMA on 08/17/23 15:06 Assessment & Plan Assessment & Plan (1) Abnormal uterine bleeding: Code(s): N93.9 - Abnormal uterine and vaginal bleeding, unspecified Category: Medical Plan: EMB done, see procedure note Orders: Orders AMB HCG Urine Test Today Z32.02 - Encounter for test, result negative AMB Endometrial Biopsy Today N93.9 - Abnormal uterine and vaginal bleeding, unspecified Coding Level of Care Code Procedure Only Diagnoses Abnormal uterine bleeding N93.9 CPT Codes Endometrial Biopsy - CPT: 50404-Apcaxelqxtc Biopsy ([id number])
== END 2023-08-17 15:35 | disposition home or self-care (01) ==
PROVIDERS: PCP Physician Assistant; Visit Provider Obstetrics & Gynecology
DX: N93.9 Abnormal uterine and vaginal bleeding, unspecified (principal); Z32.02 Encounter for pregnancy test, result negative
CPT/HCPCS: 58100

== ENCOUNTER 2023-08-21 08:35 | Outpatient (AMB) | payer OTHER, SELFPAY ==
[2023-08-21 08:45] VITALS: BP 105/63; PULSE 88; BMI 24.1
--- NOTE | 2023-08-21 08:45 | MHC.OFFVIS ---
Vital Signs 08/21/23 08:45 Height 5 ft 3 in Weight 136 lb 3.931 oz BMI 24.1 BP 105/63 Blood Pressure Location Lt brachial Position Sitting Pulse 88 Intake Visit Reasons: Colonoscopy Screening Intake Note: Patient presents in office today as a new patient for colonoscopy screening. CC: Denies having any GI symptoms today. Allergies No Known Allergies Allergy (Verified 08/21/23 08:53) HPI HPI Colonoscopy Screening: Details: 47 year old? female with past medical history of depression, varicose veins, tobacco dependence, PVD, opioid use disorder me, now clean for the past year and a half is here today for pre colonoscopy screening.? Patient was sent to us by her PCP.? This is her first colonoscopy screening.? Patient denies any gastrointestinal symptoms in the past or at present.? Denies any personal or family history of gastrointestinal disease, colon polyps, or CRC.? Denies history of difficulty with sedation or anesthesia in the past.? Negative for history of sleep apnea.? Denies any history of cardiac, renal, pulmonary, or hepatic disease.?? No history of infectious? diseases like hepatitis A, B, C, HIV or tuberculosis.? Patient is not on any anticoagulation [facility] Medical History Opioid use disorder, severe, in early remission, dependence Cocaine use disorder Opioid use disorder, severe, dependence Other longterm (current) drug therapy Depression Opioid use disorder Surgical History History of loop electrical excision procedure (LEEP) Hx of tubal ligation Family History Father COPD (chronic obstructive pulmonary disease) Mother No problems noted. Social History Housing: House Alcohol intake: never Patient Tobacco Use Status: Current everyday Tobacco user Tobacco use type: Cigarette and Smokeless Tobacco Cigarettes Per Day: 6 e-Cigarette/Vaping Use: Currently Using Current occupational status: employed Current occupation: [employer] Cognitive needs: No Hearing needs: No Vision needs: No Female Reproductive History Menstrual Age of Menarche: 16 Review of Systems Const Denies weight gain and Denies weight loss ENT Reports no additional complaints, Denies dysphagia and Denies odynophagia Card Reports no additional complaints Resp Reports no additional complaints GI Denies abdominal pain, Denies belching, Denies melena, Denies bloating, Denies change in bowel habits, Denies dysphagia, Denies excessive flatus, Denies dyspepsia, Denies heartburn, Denies diarrhea, Denies loose stools, Denies nausea, Denies odynophagia and Denies vomiting Musc Reports no additional complaints Neuro Reports no additional complaints Psych Reports no additional complaints Endo Reports no additional complaints Physical Exam Vital Signs: Last Vital Signs Pulse 88 08/21/23 08:45 BP 105/63 08/21/23 08:45 BMI result Body Mass Index 24.1 Const General: healthy appearing, no acute distress and well developed Nutritional Appearance: well nourished Orientation/consciousness: patient oriented x3 Resp Effort & Inspection: normal respiratory effort, able to speak in complete sentences, no tracheal deviation and symmetric chest movement Auscultation: clear to auscultation bilaterally Cardio Rate: regular rate GI Inspection: Yes normal to inspection and No distended Palpation (GI): Soft to palpation, not firm, nontender and No hepatosplenomegaly present Auscultation: normal bowel sounds General: Yes no CVA tenderness Back/Spine/Pelvis Back: no CVA tenderness Skin General skin exam: elasticity normal, turgor normal and dry skin Neuro General: patient oriented x3 Psych Appearance: grossly normal Mental Status: mental status grossly normal Assessment & Plan Assessment & Plan (1) Screen for colon cancer: Code(s): Z12.11 - Encounter for screening for malignant neoplasm of colon Plan Patient denies any GI, cardiac or respiratory symptoms.? Denies any issues with anesthesia in the past.? Denies any history of sleep apnea.? No history infectious diseases in the past or present.? Not on any anticoagulation therapy.? No family or personal history of colon cancer or polyps.? Patient denies melena, hematochezia, unintentional weight loss or ribbon like stools.? Discussed at length the pre-procedure,? prep, diet & medications as well as what to expect prior, during and after the procedure.?? Stressed the importance of good bowel prep.? Recommended the use of Vaseline or Calmoseptine OTC & baby wipes with bowel movements to promote comfort.? ?Patient verbalizes understanding and agrees to plan of care.? She was given the opportunity to ask questions and all questions answered.? We will see her after the procedure.? Medications: New bisacodyl (Dulcolax (bisacodyl)) take 4 tabs at noon the day before your colonoscopy 20 mg (4 x 5 mg) PO ONCE 1 day 4 tabs 0RF Z12.11 - Encounter for screening for malignant neoplasm of colon polyethylene glycol 3350 (Miralax) As directed by gastroenterology department at [facility] 238 grams PO ONCE 238 grams 0RF Z12.11 - Encounter for screening for malignant neoplasm of colon Coding Level of Care Code New Pt Level 3 (06963) Diagnoses Screen for colon cancer Z12.11 Time Spent (min) 40 Comment 30 minutes spent with patient and additional 10 minutes spent reviewing her records
== END 2023-08-21 09:18 | disposition home or self-care (01) ==
PROVIDERS: PCP Physician Assistant; Visit Provider Nurse Practitioner Family
DX: Z12.11 Encounter for screening for malignant neoplasm of colon (principal); Z01.818 Encounter for other preprocedural examination
CPT/HCPCS: 99203

== ENCOUNTER → 2023-08-21 08:35 | Outpatient (BNVA) | payer OTHER, SELFPAY | PROVIDERS: PCP Physician Assistant; Visit Provider Nurse Practitioner Family | DX: Z12.11 Encounter for screening for malignant neoplasm of colon (principal) | CPT/HCPCS: 99202 ==

== ENCOUNTER 2023-08-28 13:58 | Outpatient (AMB) | payer OTHER, SELFPAY ==
[2023-08-28 14:02] VITALS: BP 128/86; PULSE 65; O2SAT 100
--- NOTE | 2023-08-28 14:02 | A.OFFVISCC_ITS ---
Vital Signs 08/28/23 14:02 BP 128/86 Blood Pressure Location Rt brachial Position Sitting Pulse 65 Pulse Source Pulse Oximeter Pulse Oximetry (%) 100 Oxygen Delivery Method Room Air Intake Visit Reasons: MAT VISIT Allergies No Known Allergies Allergy (Verified 08/21/23 08:53) HPI HPI MAT VISIT: Details: Patient presents for follow up Currently prescribed suboxone 8mg BID and topomax Tolerating medications recently got promoted at work Vascular appts at the end of the month [facility] Medical History Opioid use disorder, severe, in early remission, dependence Cocaine use disorder Opioid use disorder, severe, dependence Other [place] [facility] (current) drug therapy Depression Opioid use disorder Surgical History History of loop electrical excision procedure (LEEP) Hx of tubal ligation Family History Father COPD (chronic obstructive pulmonary disease) Mother No problems noted. Social History Housing: House Alcohol intake: never Patient Tobacco Use Status: Current everyday Tobacco user Tobacco use type: Cigarette and Smokeless Tobacco Cigarettes Per Day: 6 e-Cigarette/Vaping Use: Currently Using Current occupational status: employed Current occupation: [employer] Cognitive needs: No Hearing needs: No Vision needs: No Female Reproductive History Menstrual Age of Menarche: 16 Review of Systems Const Reports as per HPI and Reports no additional complaints Physical Exam Vital Signs: Last Vital Signs Pulse 65 08/28/23 14:02 BP 128/86 08/28/23 14:02 Pulse Ox 100 08/28/23 14:02 Oxygen Delivery Method Room Air 08/28/23 14:02 Const General: cooperative, healthy appearing, comfortable, no acute distress, well developed and alert Nutritional Appearance: average body habitus Orientation/consciousness: patient oriented x3 Limitations: no limitations Neuro General: patient oriented x3 Psych Appearance: grossly normal Mental Status: mental status grossly normal Speech and movement: Normal speech and movement present Affect: normal affect Attitude: cooperative Thought process: Normal thought process present Thought content: Normal thought content present Insight: Good insight present (Psych) Judgement: Good judgement present (Psych) Assessment & Plan Assessment & Plan (1) Opioid use disorder, severe, in sustained remission: Code(s): F11.21 - Opioid dependence, in remission Category: Medical Plan: * continue suboxone at current dose * follow up one month * relapse prevention discussion Medications: Refilled buprenorphine-naloxone 8-2 mg (Suboxone) 1 film sublingual BID 60 ea 0RF 30 days
== END 2023-08-28 14:41 | disposition home or self-care (01) ==
PROVIDERS: PCP Physician Assistant; Visit Provider Nurse Practitioner Psychiatric/Mental Health
DX: F11.21 Opioid dependence, in remission (principal)
CPT/HCPCS: 99213

== ENCOUNTER → 2023-08-28 13:58 | Outpatient (BNVA) | payer OTHER, SELFPAY | PROVIDERS: PCP Physician Assistant; Visit Provider Nurse Practitioner Psychiatric/Mental Health | DX: F11.21 Opioid dependence, in remission (principal); Z51.81 Encounter for therapeutic drug level monitoring; Z79.899 Other long term (current) drug therapy | CPT/HCPCS: 99212 ==

== ENCOUNTER 2023-09-07 14:20 | Outpatient (AMB) | payer OTHER, SELFPAY ==
--- NOTE | 2023-09-07 14:21 | A.OFFVIS_ITS ---
Vital Signs 09/07/23 14:24 Height 5 ft 3 in Weight 134 lb 7.712 oz BMI 23.8 BP 98/60 Intake Visit Reasons: EMB results Allergies No Known Allergies Allergy (Verified 08/21/23 08:53) HPI Comments Details: The patient is presenting for follow-up to discuss the results of her abnormal uterine bleeding workup and options of treatment. The following workup was done.: H&H= 13.5/9.2 TSH, prolactin, hCG, GC and chlamydia were negative. Endometrial biopsy pathology showed following: Early secretory endometrium; negative for atypia, hyperplasia or malignancy. Co testing was done was negative. Mammogram was BI-RADS 1. Pelvic ultrasound showed the following: Uterus: The uterus is anteverted and measures 7.7 x 4.0 x 4.9 cm. The double wall endometrial thickness is 1.7 mm. There is a small cystic area seen in the uterus adjacent to the myometrial/endometrial junction measuring 4 mm. The uterus is smooth in contour and has normal myometrial echogenicity. No visible fibroid. Adnexa: Right ovary is not visualized, no large right adnexal mass. There is normal color flow to the adnexa. There is no ovarian torsion. There is no pelvic ascites or fluid collection. Left ovary measures 3.7 x 1.9 x 3.5 cm. 2.3 cm avascular intraovarian cyst with peripheral vascularity and low level internal echoes. 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 Social History Housing: House Alcohol intake: never Patient Tobacco Use Status: Current everyday Tobacco user Tobacco use type: Cigarette and Smokeless Tobacco Cigarettes Per Day: 6 e-Cigarette/Vaping Use: Currently Using Current occupational status: employed Current occupation: [employer] Cognitive needs: No Hearing needs: No Vision needs: No Female Reproductive History Menstrual Age of Menarche: 16 Review of Systems Const All systems reviewed & are unremarkable except as noted in HPI and below Reports as per HPI and Reports no additional complaints GI Reports no additional complaints Reports no additional complaints Physical Exam Vital Signs: Last Vital Signs BP 98/60 09/07/23 14:24 BMI result Body Mass Index 23.8 Assessment & Plan Assessment & Plan (1) Abnormal uterine bleeding: Code(s): N93.9 - Abnormal uterine and vaginal bleeding, unspecified Category: Medical Plan: Discussed with the patient the results of the work up done and options of treatment including Lysteda, BCP's, Mirena IUD, endometrial ablation and hysterectomy. All pros, cons, risks and benefits if each option was discussed with the patient and the patient decided to think about it and get back to us. All questions answered the patient verbalized understanding. (2) Complex ovarian cyst: Code(s): N83.299 - Other ovarian cyst, unspecified side Category: Medical Plan: Discussed with the patient the complex ovarian cyst by ultrasound. Discussed with the patient the Ultrasound findings, the main limitation of transvaginal ultrasonography alone as a diagnostic tool to distinguish benign from malignant masses relates to its lack of specificity and low positive predictive value for cancer. The differential diagnosis discussed with the patient includes the following but not limited to: benign and malignant gynecological and non-gynecological causes. Discussed with the patient options of treatment including laparoscopy ovarian cystectomy/oophorectomy vs. expectant management with repeat US in repeating pelvic US in 6-12 weeks from previous US. If the ovarian complex cyst is persistent larger and / or more complex looking will refer to gynecologic Oncology. All pros, cons, risks and benefits of each approach were discussed with the patient including but not limited to a delay in the diagnosis and t reatment of ovarian cancer affecting the prognosis; The patient decided to go ahead with expectant management. Instructions given the patient to schedule a 3 months follow-up ultrasound appointment. All questions were answered & the patient verbalized understanding and agreed with the plan. Orders: Orders US pelvic and transvaginal Today N83.299 - Other ovarian cyst, unspecified side Coding Level of Care Code Est Pt Level 3 (17507) Diagnoses Abnormal uterine bleeding N93.9 Complex ovarian cyst N83.299
[2023-09-07 14:24] VITALS: BP 98/60; BMI 23.8
== END 2023-09-07 14:47 | disposition home or self-care (01) ==
PROVIDERS: PCP Physician Assistant; Visit Provider Obstetrics & Gynecology
DX: N93.9 Abnormal uterine and vaginal bleeding, unspecified (principal); N83.299 Other ovarian cyst, unspecified side
CPT/HCPCS: 99213

== ENCOUNTER → 2023-09-07 14:20 | Outpatient (BNVA) | payer OTHER, SELFPAY | PROVIDERS: PCP Physician Assistant; Visit Provider Obstetrics & Gynecology | DX: N93.9 Abnormal uterine and vaginal bleeding, unspecified (principal); N83.299 Other ovarian cyst, unspecified side | CPT/HCPCS: 99212 ==

== ENCOUNTER 2023-09-08 07:51 | Outpatient (AMB) | payer OTHER, SELFPAY ==
--- NOTE | 2023-09-08 07:52 | A.OFFVIS_ITS ---
Intake Visit Reasons: Right GSV Venaseal Accompanied by: Self / Same As Patient Allergies No Known Allergies Allergy (Verified 09/08/23 07:53) [facility] Medical History Opioid use disorder, severe, in early remission, dependence Cocaine use disorder Opioid use disorder, severe, dependence Other retirement (current) drug therapy Depression Opioid use disorder Surgical History History of loop electrical excision procedure (LEEP) Hx of tubal ligation Family History Father COPD (chronic obstructive pulmonary disease) Mother No problems noted. Social History Housing: House Alcohol intake: never Patient Tobacco Use Status: Current everyday Tobacco user Tobacco use type: Cigarette and Smokeless Tobacco Cigarettes Per Day: 6 e-Cigarette/Vaping Use: Currently Using Current occupational status: employed Current occupation: [employer] Cognitive needs: No Hearing needs: No Vision needs: No Female Reproductive History Menstrual Age of Menarche: 16 Office Procedures Vascular Office Procedure Details Details: Diagnosis: Right Leg varicose veins with inflammation Procedure: Endovenous Ablation of the right Great Saphenous Vein with VenaSeal Closure System Anesthesia: Local infiltration 5 cc, Estimated Blood Loss: min Specimen: none Duplex ultrasound was used to map out the insufficient saphenous vein, and access was determined and marked on the overlying skin. The depth and diameter of the vein(s) to be treated was documented. The patient was placed supine on the procedure table and the leg was prepped and draped using sterile technique. Ultasound guidance was again used to localize the access site. 1% lidocaine was injected as a local anesthetic in the subcutaneous tissues at the target location in the GSV in the lower leg. Using ultrasound guidance, access was gained at this location with the 19 gauge thin walled access needle and followed by introduction of a short guidewire, location confirmed with ultrasound. A small, 3 mm incision was made at the access site to allow for introduction and placement of the 7 Fr x7cm introducer/dilator. The dilator and guidewire were removed. The 0.035 guidewire from the VenaSeal kit was then introduced and positioned at the distal calf. The 80 cm 7 Fr introducer sheath/dilator was positioned as far proximally as it would go as she did have a prior ablation in the thigh but had a large refluxing vein in the calf The guidewire and dilator were removed, and the remaining sheath was flushed with sterile saline, with the syringe remaining in place prior to the next steps. The cyanoacrylate adhesive was precisely primed into the 5 F delivery catheter and this catheter/syringe combination was attached within the dispenser gun. This assembly was introduced through the 7F sheath and positioned 5 cm caudal of the saphenofemoral junction under ultrasound guidance. The steps from the IFU were followed for dispensing amounts, locations and compression times, 2 aliquots proximally with 3 minutes of compression, and 1 aliquot every 3 cm distally with 30 sec of compression along the course of the vessel. Following the last injection and compression sequence, the catheter and introducer sheath were pulled out from the access site. Hemostasis was achieved with manual compression and an adhesive bandage was applied to the incision. Ultrasound confirmed complete coaptation and closure of the treated segments of the GSV, and the absence of any DVT at the saphenofemoral junction. Treatment time was approximately 4 minutes and the vein length treated was 10 cm. The drapes were removed and the patient cleaned and prepared for discharge. Post op ultrasound check is scheduled for 48-72 hours and the patient was given written post-op instructions. 04082 - Endoven Ther Chem Adhes 1st All charges added?: Procedure code (CPT) selection complete Assessment & Plan Assessment & Plan (1) Varicose veins of right lower extremity with inflammation: Comment: 09/08/2023-right great saphenous vein Cyanoacralate ablation Code(s): I83.11 - Varicose veins of right lower extremity with inflammation Category: Medical Plan: See op note Coding Level of Care Code Procedure Only Diagnoses Varicose veins of right lower extremity with inflammation I83.11 CPT Codes Details - Vascular 3: 93303 - Endoven Ther Chem Adhes 1st ([id number])
== END 2023-09-08 09:39 | disposition home or self-care (01) ==
PROVIDERS: PCP Physician Assistant; Visit Provider Surgery Vascular Surgery
DX: I83.11 Varicose veins of right lower extremity with inflammation (principal)
CPT/HCPCS: 36482

== ENCOUNTER → 2023-09-08 07:51 | Outpatient (BNVA) | payer OTHER, SELFPAY | PROVIDERS: PCP Physician Assistant; Visit Provider Surgery Vascular Surgery | DX: I83.11 Varicose veins of right lower extremity with inflammation (principal) | CPT/HCPCS: 36482 ==

== ENCOUNTER 2023-09-11 12:33 | Outpatient (REF) | payer OTHER, SELFPAY ==
--- NOTE | ~2023-09-11 | US_ITS ---
EXAMINATION: TRIPLEX SCANNING OF RIGHT LOWER EXTREMITY; SUPERFICIAL ULTRASOUND WITH DOPPLER OF RIGHT LOWER EXTREMITY CLINICAL INFORMATION: Status post RF ablation of the right great saphenous vein, performed on 09/08/2023. COMPARISON: Preprocedure studies. TECHNIQUE: Color flow triplex imaging and compression Doppler were performed as well as superficial ultrasound with Doppler. FINDINGS: TRIPLEX SCANNING OF RIGHT LOWER EXTREMITY: Respiratory variation, normal compression and augmented flow are noted throughout the lower extremity. The visualized common femoral vein, femoral vein, profunda femoral vein, popliteal vein and the calf veins show no evidence of deep venous thrombosis. There is no evidence of Walden's cyst. SUPERFICIAL ULTRASOUND WITH DOPPLER OF RIGHT LOWER EXTREMITY: The right great saphenous vein is occluded from the access site to 3.1 cm before the saphenofemoral junction. There is no extension of thrombus into the deep system. US/US venous duplex LE RT IMPRESSION: 1. Normal triplex scan of the right without evidence of deep venous thrombosis. 2. Excellent appearance status post ablation of the right great saphenous vein.
== END 2023-09-11 12:34 | disposition home or self-care (01) ==
LOC: HO.US 12:33
PROVIDERS: PCP Physician Assistant; Visit Provider Surgery Vascular Surgery
DX: M79.604 Pain in right leg (principal)
CPT/HCPCS: 93971

== ENCOUNTER 2023-09-19 14:09 | Outpatient (AMB) | payer OTHER, SELFPAY ==
--- NOTE | 2023-09-19 14:09 | A.OFFVIS_ITS ---
Vital Signs 09/19/23 14:10 Height 5 ft 3 in Weight 134 lb BMI 23.7 Intake Visit Reasons: 2 week follow up Right GSV Venaseal 09/08/23 Intake Note: 2 week follow up Right GSV Venaseal 09/08/23, still has very large VV clusters over entire Right LE w/ discoloration. Pt does have bruising still over incision site. Left LE is good, no issues at this time. Accompanied by: Self / Same As Patient Allergies No Known Allergies Allergy (Verified 09/19/23 14:12) HPI HPI 2 week follow up Right GSV Venaseal 09/08/23: Details: Very pleasant 47-year-old female presents for follow-up evaluation regarding venous disease. She has a significant large cluster varicosities on the right lower extremity. She had previous venous ablation by Dr. Villarreal several years prior. She now presents to us for follow-up with venous insufficiency testing. Of note these varicosities have been a source of pain and discomfort for her. 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 Also of note she has undergone right great saphenous vein Cyanoacralate ablation. Reports she is doing fairly well from that. [facility] Medical History Opioid use disorder, severe, in early remission, dependence Cocaine use disorder Opioid use disorder, severe, dependence Other [facility] (current) drug therapy Depression Opioid use disorder Surgical History History of loop electrical excision procedure (LEEP) Hx of tubal ligation Family History Father COPD (chronic obstructive pulmonary disease) Mother No problems noted. Social History Housing: House Alcohol intake: never Patient Tobacco Use Status: Current everyday Tobacco user Tobacco use type: Cigarette and Smokeless Tobacco Cigarettes Per Day: 6 e-Cigarette/Vaping Use: Currently Using Current occupational status: employed Current occupation: [employer] Cognitive needs: No Hearing needs: No Vision needs: No Female Reproductive History Menstrual Age of Menarche: 16 Review of Systems Const Reports as per HPI ENT Reports no additional complaints Card Denies chest pain, Denies chest pain at rest and Denies chest pain with activity Resp Denies chest congestion and Denies cough GI Reports no additional complaints Musc Details: pain over varicosities, aching of lower extremities, swelling, cramping, heaviness and tiredness, itching Denies abnormal gait Skin/Breast Reports pruritus and Denies wounds Neuro Reports no additional complaints and Denies abnormal gait Psych Denies no additional complaints Physical Exam Vital Signs: BMI result Body Mass Index 23.7 Const General: cooperative, healthy appearing and comfortable Orientation/consciousness: oriented to person, oriented to place and oriented to time Neck Carotids: no bruits Chest Chest palpation & inspection: normal inspection of the chest and normal palpation of entire chest wall Resp Effort & Inspection: normal respiratory effort and able to speak in complete sentences Cardio Rate: regular rate Heart sounds: S1 normal heart sound present and S2 normal heart sound present Peripheral pulses: Peripheral pulses 2+ throughout GI Inspection: Yes normal to inspection Skin Other: +2 edema, large rope-like varicosities greater than 4 mm right thigh and calf CEAP Classification C4 - skin color changes Ep - Etiology Primary As - superficial veins P - reflux General skin exam: dry skin Neuro General: oriented to person, oriented to place and oriented to time Extrem Right lower extremity: full ROM, normal capillary refill and edema Left lower extremity: full ROM, normal capillary refill and edema Psych Mental Status: mental status grossly normal Results Reviewed Results Reviewed: Brief summary of venous insufficiency testing is as follows: right great saphenous vein: Positive right small saphenous vein: negative right accessory vein: none present left great saphenous vein: negative left small saphenous vein: negative left accessory vein: none present Please note there is no evidence of any venous aneurysms or significant tortuosity Assessment & Plan Assessment & Plan (1) Varicose veins of right lower extremity with inflammation: Comment: 09/08/2023-right great saphenous vein Cyanoacralate ablation Code(s): I83.11 - Varicose veins of right lower extremity with inflammation Category: Medical Plan: This patient has varicose veins with inflammation. They continue to be a source of discomfort for the patient. The patient has tried conservative treatment with compression, leg elevation and exercise program for over 3 months time. They have been compliant with all treatment. This has provided minimal relief for the patient. I do not anticipate this course of treatment will alter the underlying etiology. The patient has been scheduled for lower extremity venous treatment inclusive of --- right great saphenous vein radiofrequency ablation. Risks, benefits, and complications of this procedure has been discussed in detail with the patient including but not limited to bleeding, infection, and the development of a DVT. The patient has demonstrated a clear understanding and has consented. We will schedule the patient as soon as possible. Thank you for allowing us to participate in this patient's care. If there are any questions or concerns please do not hesitate to contact us. Coding Level of Care Code Est Pt Level 4 (05731) Diagnoses Varicose veins of right lower extremity with inflammation I83.11
[2023-09-19 14:10] VITALS: BMI 23.7
== END 2023-09-19 14:36 | disposition home or self-care (01) ==
LOC: HO.HVS 14:09
PROVIDERS: PCP Physician Assistant; Visit Provider Surgery Vascular Surgery
DX: I83.11 Varicose veins of right lower extremity with inflammation (principal)
CPT/HCPCS: 99214

== ENCOUNTER → 2023-09-19 14:09 | Outpatient (BNVA) | payer OTHER, SELFPAY | PROVIDERS: PCP Physician Assistant; Visit Provider Surgery Vascular Surgery | DX: I83.11 Varicose veins of right lower extremity with inflammation (principal) | CPT/HCPCS: 99212 ==

== ENCOUNTER 2023-09-26 13:53 | Outpatient (AMB) | payer OTHER, SELFPAY ==
--- NOTE | 2023-09-26 13:54 | MHC.AM.SUB ---
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 Social History Housing: House Alcohol intake: never Patient Tobacco Use Status: Current everyday Tobacco user Tobacco use type: Cigarette and Smokeless Tobacco Cigarettes Per Day: 6 e-Cigarette/Vaping Use: Currently Using Current occupational status: employed Current occupation: [employer] Cognitive needs: No Hearing needs: No Vision needs: No Female Reproductive History Menstrual Age of Menarche: 16 Review of Systems Const Reports as per HPI and Reports no additional complaints Physical Exam Vital Signs: Last Vital Signs Pulse 85 09/26/23 13:58 Resp 16 09/26/23 13:58 BP 90/70 09/26/23 13:58 Pulse Ox 96 09/26/23 13:58 Oxygen Delivery Method Room Air 09/26/23 13:58 Const General: cooperative, healthy appearing, comfortable, no acute distress, well developed and alert Nutritional Appearance: average body habitus Orientation/consciousness: patient oriented x3 Limitations: no limitations Neuro General: patient oriented x3 Psych Appearance: grossly normal Mental Status: mental status grossly normal Speech and movement: Normal speech and movement present Affect: normal affect Attitude: cooperative Thought process: Normal thought process present Thought content: Normal thought content present Insight: Good insight present (Psych) Judgement: Good judgement present (Psych) Assessment & Plan Assessment & Plan (1) Opioid use disorder, severe, in sustained remission: Code(s): F11.21 - Opioid dependence, in remission Category: Medical Plan: continue suboxone at current dose follow up one month relapse prevention discussion Medications: Refilled buprenorphine-naloxone 8-2 mg (Suboxone) 1 film sublingual BID 30 days 60 ea 0RF
[2023-09-26 13:58] VITALS: BP 90/70; PULSE 85; RESP 16; O2SAT 96
== END 2023-09-26 14:31 | disposition home or self-care (01) ==
PROVIDERS: PCP Physician Assistant; Visit Provider Nurse Practitioner Psychiatric/Mental Health
DX: F11.21 Opioid dependence, in remission (principal)
CPT/HCPCS: 99213

== ENCOUNTER → 2023-09-26 13:53 | Outpatient (BNVA) | payer OTHER, SELFPAY | PROVIDERS: PCP Physician Assistant; Visit Provider Nurse Practitioner Psychiatric/Mental Health | DX: F11.20 Opioid dependence, uncomplicated (principal) | CPT/HCPCS: 99212 ==

== ENCOUNTER 2023-10-27 15:37 | Outpatient (AMB) | payer OTHER, SELFPAY ==
--- NOTE | 2023-10-27 16:19 | A.OFFVISCC_ITS ---
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 Social History Housing: House Alcohol intake: never Patient Tobacco Use Status: Current everyday Tobacco user Tobacco use type: Cigarette and Smokeless Tobacco Cigarettes Per Day: 6 e-Cigarette/Vaping Use: Currently Using Current occupational status: employed Current occupation: [employer] Cognitive needs: No Hearing needs: No Vision needs: No Female Reproductive History Menstrual Age of Menarche: 16 Review of Systems Const Reports as per HPI Physical Exam Const General: cooperative, healthy appearing, comfortable, no acute distress, well developed and alert Nutritional Appearance: average body habitus Orientation/consciousness: patient oriented x3 Limitations: no limitations Neuro General: patient oriented x3 Psych Appearance: grossly normal Mental Status: mental status grossly normal Speech and movement: Normal speech and movement present Affect: normal affect Attitude: cooperative Thought process: Normal thought process present Thought content: Normal thought content present Insight: Good insight present (Psych) Judgement: Good judgement present (Psych) Assessment & Plan Assessment & Plan (1) Opioid use disorder, severe, in sustained remission: Code(s): F11.21 - Opioid dependence, in remission Category: Medical Plan: * continue suboxone at current dose * follow up 4 weeks Medications: Refilled buprenorphine-naloxone 8-2 mg (Suboxone) 1 film sublingual BID 60 ea 0RF 30 days
== END 2023-10-27 16:16 | disposition home or self-care (01) ==
PROVIDERS: PCP Physician Assistant; Visit Provider Nurse Practitioner Psychiatric/Mental Health
DX: F11.21 Opioid dependence, in remission (principal)
CPT/HCPCS: 99213

== ENCOUNTER → 2023-10-27 15:37 | Outpatient (BNVA) | payer OTHER, SELFPAY | PROVIDERS: PCP Physician Assistant; Visit Provider Nurse Practitioner Psychiatric/Mental Health | DX: Z51.81 Encounter for therapeutic drug level monitoring (principal); F11.21 Opioid dependence, in remission | CPT/HCPCS: 99212 ==

== ENCOUNTER → 2023-11-27 15:51 | Outpatient (BNVA) | payer OTHER, SELFPAY | PROVIDERS: PCP Physician Assistant; Visit Provider Nurse Practitioner Psychiatric/Mental Health | DX: Z51.81 Encounter for therapeutic drug level monitoring (principal); F11.21 Opioid dependence, in remission ==

== ENCOUNTER 2023-11-28 10:08 | Outpatient (AMB) | payer OTHER, SELFPAY ==
[2023-11-28 10:07] VITALS: BMI 23.7
--- NOTE | 2023-11-28 10:07 | A.OFFVIS_ITS ---
Vital Signs 11/28/23 10:07 Height 5 ft 3 in Weight 134 lb BMI 23.7 Intake Visit Reasons: 2 week follow up Right GSV RFA 11/10/2023 Intake Note: Pt presents to the office today for a 2 week follow up. Pt states she is feeling great and has no concerns at this time. Allergies No Known Allergies Allergy (Verified 11/28/23 10:11) HPI HPI 2 week follow up Right GSV RFA 11/10/2023: Details: Very pleasant 47-year-old female presents for follow-up status post right great saphenous vein ablation. She appears to be doing extremely well postprocedure. Postprocedure ultrasound was negative for DVT. She is now concerned about the large varicosities throughout her right leg. She does note that the leg does feel better but she does feel pain and discomfort directly over the large varicosities. It has been affecting her ambulatory job at [employer]. She now presents for routine follow-up. 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 Social History Housing: House Alcohol intake: never Patient Tobacco Use Status: Current everyday Tobacco user Tobacco use type: Cigarette and Smokeless Tobacco Cigarettes Per Day: 6 e-Cigarette/Vaping Use: Currently Using Current occupational status: employed Current occupation: [employer] Cognitive needs: No Hearing needs: No Vision needs: No Female Reproductive History Menstrual Age of Menarche: 16 Review of Systems Const Reports as per HPI ENT Reports no additional complaints Card Denies chest pain, Denies chest pain at rest and Denies chest pain with activity Resp Denies chest congestion and Denies cough GI Reports no additional complaints Musc Details: pain over varicosities, aching of lower extremities, swelling, cramping, heaviness and tiredness, itching Denies abnormal gait Skin/Breast Reports pruritus and Denies wounds Neuro Reports no additional complaints and Denies abnormal gait Psych Denies no additional complaints Physical Exam Vital Signs: BMI result Body Mass Index 23.7 Const General: cooperative, healthy appearing and comfortable Orientation/consciousness: oriented to person, oriented to place and oriented to time Neck Carotids: no bruits Chest Chest palpation & inspection: normal inspection of the chest and normal palpation of entire chest wall Resp Effort & Inspection: normal respiratory effort and able to speak in complete sentences Cardio Rate: regular rate Heart sounds: S1 normal heart sound present and S2 normal heart sound present Peripheral pulses: Peripheral pulses 2+ throughout GI Inspection: Yes normal to inspection Skin Other: +2 edema, large rope-like varicosities greater than 4 mm right calf and thigh CEAP Classification C4 - skin color changes Ep - Etiology Primary As - superficial veins P - reflux General skin exam: dry skin Neuro General: oriented to person, oriented to place and oriented to time Extrem Right lower extremity: full ROM, normal capillary refill and edema Left lower extremity: full ROM, normal capillary refill and edema Psych Mental Status: mental status grossly normal Assessment & Plan Assessment & Plan (1) Varicose veins of right lower extremity with inflammation: Comment: 09/08/2023-right great saphenous vein Cyanoacralate ablation Code(s): I83.11 - Varicose veins of right lower extremity with inflammation Category: Medical Plan: This patient has varicose veins with inflammation. They continue to be a source of discomfort for the patient. The patient has tried conservative treatment with compression, leg elevation and exercise program for over 3 months time. They have been compliant with all treatment. This has provided minimal relief for the patient. I do not anticipate this course of treatment will alter the underlying etiology. The patient has been scheduled for lower extremity venous treatment inclusive of --- right leg microphlebectomy. Risks, benefits, and complications of this procedure has been discussed in detail with the patient including but not limited to bleeding, infection, and the development of a DVT. The patient has demonstrated a clear understanding and has consented. We will schedule the patient as soon as possible. Thank you for allowing us to participate in this patient's care. If there are any questions or concerns please do not hesitate to contact us. Coding Level of Care Code Est Pt Level 4 (91887) Diagnoses Varicose veins of right lower extremity with inflammation I83.11
== END 2023-11-28 10:41 | disposition home or self-care (01) ==
PROVIDERS: PCP Physician Assistant; Visit Provider Surgery Vascular Surgery
DX: I83.11 Varicose veins of right lower extremity with inflammation (principal)
CPT/HCPCS: 99214

== ENCOUNTER → 2023-11-28 10:08 | Outpatient (BNVA) | payer OTHER, SELFPAY | PROVIDERS: PCP Physician Assistant; Visit Provider Surgery Vascular Surgery | DX: I83.11 Varicose veins of right lower extremity with inflammation (principal) | CPT/HCPCS: 99212 ==

== ENCOUNTER 2023-12-18 09:38 | Day surgery (SDC) | payer OTHER, SELFPAY ==
[2023-12-18] VITALS (7 sets, daily range): BP systolic 109–124; BP diastolic 58–77; PULSE 66–77; RESP 12–18; TEMP 36.1–36.8; O2SAT 98–100; BMI 25.0
--- NOTE | 2023-12-18 07:52 | MHC.SHP ---
Pre-Procedural Eval Section A - 24 Hr Update-Section A only Date of Service: 12/18/23 Changes since office visit: Yes Patient answered all questions The patient has been examined within 24 hours of the surgical procedure. The History & Physical has been completed within 30 days and I have reviewed it.: Yes Section B - Complete if H&P > 30 days Chief Complaint: Varicose veins of right lower extremity with infla Allergies: Allergies Allergy/AdvReac Type Severity Reaction Status Date / Time No Known Allergies Allergy Verified 11/28/23 10:11 Plan I have reviewed the history and physical and performed a pertinent physical examination on my patient. No changes have occurred unless specified. Time Spent With Patient Time: Total time managing care of this patient today ____ minutes.
[2023-12-18] MEDS: Lactated Ringers 1,000 ML 100 ML IVCONT (10:53)
--- NOTE | 2023-12-18 11:00 | HO.ANESPROP2 ---
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) Depression (Acute) Varicose veins of right lower extremity with inflammation (Acute) Atypical squamous cell changes of cervix undetermined significance favor benign (Acute) Cervical cancer screening (Acute) Symptomatic varicose veins of right lower extremity (Acute) Tobacco dependence (Acute) Breast cancer screening (Acute) Screening for diabetes mellitus (DM) (Acute) Screening for hypothyroidism (Acute) PVD (peripheral vascular disease) with claudication (Acute) Past Medical History Medical History Opioid use disorder, severe, in early remission, dependence Cocaine use disorder Opioid use disorder, severe, dependence Other alf (current) drug therapy Depression Opioid use disorder Family History Family History Father COPD (chronic obstructive pulmonary disease) Mother No problems noted. Surgical History Surgical History History of loop electrical excision procedure (LEEP) Hx of tubal ligation Social History Social History Housing: House Are you a primary child caregiver to a significant other at home: No Do you presently have visiting nurse or other home services: No Alcohol intake: never Patient Tobacco Use Status: Current everyday Tobacco user Tobacco use type: Cigarette and Smokeless Tobacco Cigarettes Per Day: 6 e-Cigarette/Vaping Use: Currently Using Use of substances other than those prescribed or required for medical reasons: Yes Substance Use Frequency: Daily Have you been hit, kicked, punched, or otherwise hurt by someone within the past year? If so, by whom?: No Are you DNR?: No Advance Directives: No Advance Directives Information Provided: Yes Recently lost weight without trying: No Nutrition Risks: No Nutritional Risk Patient : No (Tubal ligation) Current occupational status: employed Current occupation: [employer] Cognitive needs: No Hearing needs: No Vision needs: No Meds Allergies Allergy/AdvReac Type Severity Reaction Status Date / Time No Known Allergies Allergy Verified 12/18/23 10:06 Assessment and Plan Assessment Anesthesia Assessment: Chart Reviewed Documented by User: Ade Veras DO 12/18/23 11:01 PMF Past Medical History Medical History Opioid use disorder, severe, in early remission, dependence Cocaine use disorder Opioid use disorder, severe, dependence Other alf (current) drug therapy Depression Opioid use disorder Family History Family History Father COPD (chronic obstructive pulmonary disease) Mother No problems noted. Family history of problems with anesthesia: No Surgical History Surgical History History of loop electrical excision procedure (LEEP) Hx of tubal ligation History of Problems with Anesthesia: No Social History Social History Housing: House Are you a primary child caregiver to a significant other at home: No Do you presently have visiting nurse or other home services: No Alcohol intake: never Patient Tobacco Use Status: Current everyday Tobacco user Tobacco use type: Cigarette and Smokeless Tobacco Cigarettes Per Day: 6 e-Cigarette/Vaping Use: Currently Using Use of substances other than those prescribed or required for medical reasons: Yes Substance Use Frequency: Daily Have you been hit, kicked, punched, or otherwise hurt by someone within the past year? If so, by whom?: No Are you DNR?: No Advance Directives: No Advance Directives Information Provided: Yes Recently lost weight without trying: No Nutrition Risks: No Nutritional Risk Patient : No (Tubal ligation) Current occupational status: employed Current occupation: [employer] Cognitive needs: No Hearing needs: No Vision needs: No Meds Allergies Allergy/AdvReac Type Severity Reaction Status Date / Time No Known Allergies Allergy Verified 12/18/23 10:06 Exam Exam Date and Time: 12/18/23 1100 Height,Weight and Vital Signs: Height 5 ft 3 in Weight 63.957 kg Vital Signs Temperature 97.7 F 12/18/23 10:24 Pulse Rate 69 12/18/23 10:24 Respiratory Rate 14 12/18/23 10:24 Blood Pressure 114/76 12/18/23 10:24 Pulse Oximetry 98 12/18/23 10:24 Oxygen Delivery Method Room Air 12/18/23 10:24 Temperature 97.7 F 12/18/23 10:24 Pulse Rate 69 12/18/23 10:24 Respiratory Rate 14 12/18/23 10:24 Blood Pressure 114/76 12/18/23 10:24 Pulse Oximetry 98 12/18/23 10:24 Oxygen Delivery Method Room Air 12/18/23 10:24 Airway Mallampati Class: I TM Dist: >3cm Neck ROM: Full Denture: Upper Heart: S1S2 Lungs: CTAB Assessment and Plan Assessment Anesthesia Assessment: Anesthesia Plan Discussed and Chart Reviewed Final Anesthetic Review Family History of Problems with Anesthesia: No History of Problems with Anesthesia: No NPO: Yes ASA Class: II Final Preanesthetic Review: No Changes in Pt Med Stat, Meds/Allgs Chart Reviewed, Consent Obtained/Reviewed and Anes Risks/Benef Reviewed Patient Risk: Intermediate Procedure Risk: Low Anesthetic Plan Anesthetic Plan: GA and Agree w/ Assess. and Plan Disposition: Standard PACU
--- NOTE | 2023-12-18 12:17 | W.PM.OPN ---
Operative Note Operative Note Date of Service: 12/18/23 Narrative: Operative note by [facility] Preoperative diagnosis: Right leg varicose veins with inflammation Postoperative diagnosis: Same Procedure: 1. Right leg microphlebectomy (22) 2 ligation of venous cluster Surgeon:Yonis Bryson M.D. Manager Front: None Anesthesia: General Specimens: 1 Drains: None Estimated blood loss: 200 mL Indications: Very pleasant 47-year-old female with a history of right lower extremity varicose veins with inflammation. She had undergone previous ablation. She has significantly large painful varicosities on the right lower extremity which are all greater than 0.5 cm. She now presents for microphlebectomy The patient has signed the informed consent after reviewing risks, complications, benefits, and alternatives previously discussed with the patient. The patient was given the opportunity to ask any additional questions or voice any concerns. All questions were answered to the patient's satisfaction. Procedure in detail: Varicose veins were marked in the standing position on the right leg and the patient was then placed in the supine position. The right lower extremity was prepared and draped to allow knee flexion in the sterile field. The patient had large superficial varicose veins with significant symptoms of pain. It was therefore determined to perform microphlebectomies of the clusters of varicose veins. The patient had bulging varicose veins which were previously marked in the standing position. A small stab incision was made longitudinally directly overlying the varicose vein in the calf and the varicose vein was grasped with a hemostat aided by a vein hook. It was then dissected as far proximally and distally as possible and avulsed. A total of 22 stab incisions were made and the procedure of stab phlebectomies was repeated 22 times. In addition in the calf there was a cluster of varicosities. The base was identified and incision was carried out over the base. We subsequently ligated this with a 3-0 Polysorb suture. Residual varicosities were removed. Hemostasis was checked and stab incision sites were closed with steri-strips and sterile dressing was given with gauze and krilex wrap followed by an elena bandage. There were no complications and blood loss was 200 mL. Post-Op instructions were given and a follow-up appointment was recommended. This note is constructed using voice recognition software. While every effort has been made to ensure accuracy, industrial hygiene manager errors may have been included. Thank you for allowing me to participate in the care of your patient. Yours sincerely, Yonis Bryson MD, FACS, R.P.V.I.
[2023-12-18] MEDS: Acetaminophen 325 MG TABLET 650 MG PO (12:34)
== END 2023-12-18 13:40 | disposition home or self-care (01) ==
PROVIDERS: PCP Physician Assistant; Visit Provider Surgery Vascular Surgery
PROC: (CPT 37766; principal; 2023-12-18 11:00)
DX: I83.11 Varicose veins of right lower extremity with inflammation (principal); F32.A Depression, unspecified; Z79.899 Other long term (current) drug therapy; Z98.890 Other specified postprocedural states; F11.21 Opioid dependence, in remission; F14.90 Cocaine use, unspecified, uncomplicated; F17.210 Nicotine dependence, cigarettes, uncomplicated
CPT/HCPCS: 37766; 37785; 88304; J0690; J1100; J2250; J2405; J2704; J2795; J3010

== ENCOUNTER → 2023-12-18 09:38 | Outpatient (BNV) | payer OTHER, SELFPAY | PROVIDERS: PCP Physician Assistant; Visit Provider Surgery Vascular Surgery | DX: I83.11 Varicose veins of right lower extremity with inflammation (principal) | CPT/HCPCS: 37766 ==

== ENCOUNTER 2023-12-28 10:45 | Outpatient (AMB) | payer OTHER, SELFPAY ==
--- NOTE | 2023-12-28 11:06 | A.OFFVISCC_ITS ---
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 Social History Housing: House Are you a primary child adolescent care to a significant other at home: No Do you presently have visiting nurse or other home services: No Alcohol intake: never Patient Tobacco Use Status: Current everyday Tobacco user Tobacco use type: Cigarette and Smokeless Tobacco Cigarettes Per Day: 6 e-Cigarette/Vaping Use: Currently Using Current occupational status: employed Current occupation: [employer] Cognitive needs: No Hearing needs: No Vision needs: No Female Reproductive History Menstrual Age of Menarche: 16 Review of Systems Const Reports as per HPI Physical Exam Const General: cooperative, healthy appearing, comfortable, no acute distress, well developed and alert Nutritional Appearance: average body habitus Orientation/consciousness: patient oriented x3 Limitations: no limitations Neuro General: patient oriented x3 Psych Appearance: grossly normal Mental Status: mental status grossly normal Speech and movement: Normal speech and movement present Affect: normal affect Attitude: cooperative Thought process: Normal thought process present Thought content: Normal thought content present Insight: Good insight present (Psych) Judgement: Good judgement present (Psych) Assessment & Plan Assessment & Plan (1) Opioid use disorder, severe, in sustained remission: Code(s): F11.21 - Opioid dependence, in remission Category: Medical Plan: * continue suboxone at current dose * topomax dose increased back to 50mg daily * follow up 4 weeks Medications: Refilled topiramate 50 mg (2 x 25 mg) PO DAILY 60 tabs 3RF buprenorphine-naloxone 8-2 mg (Suboxone) 1 film sublingual BID 60 ea 0RF 30 days
== END 2023-12-28 11:26 | disposition home or self-care (01) ==
PROVIDERS: PCP Physician Assistant; Visit Provider Nurse Practitioner Psychiatric/Mental Health
DX: F11.21 Opioid dependence, in remission (principal)
CPT/HCPCS: 99214

== ENCOUNTER → 2023-12-28 10:45 | Outpatient (BNVA) | payer OTHER, SELFPAY | PROVIDERS: PCP Physician Assistant; Visit Provider Nurse Practitioner Psychiatric/Mental Health | DX: F11.21 Opioid dependence, in remission (principal) | CPT/HCPCS: 99212 ==

== ENCOUNTER 2024-01-04 15:07 | Outpatient (AMB) | payer OTHER, SELFPAY ==
--- NOTE | 2024-01-04 15:23 | A.OFFVIS_ITS ---
Vital Signs 01/04/24 15:26 Height 5 ft 3 in Weight 135 lb BMI 23.9 Intake Visit Reasons: OR Micro Follow Up Intake Note: 2 week follow up Right LE micro 12/18/23, Pt states she still has some tenderness and bruising. Pt states leg overall feels better. Accompanied by: Self / Same As Patient Allergies No Known Allergies Allergy (Verified 01/04/24 15:28) HPI HPI OR Micro Follow Up: Details: Very pleasant 48-year-old female presents for follow-up regarding microphlebectomy. She underwent operative microphlebectomy on 12/18/2023. She reports she is doing fairly well with this. Overall her legs feel significantly better after all her procedures. She now presents for routine postprocedure follow-up. 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 Social History Housing: House Are you a primary managed care manager to a significant other at home: No Do you presently have visiting nurse or other home services: No Alcohol intake: never Patient Tobacco Use Status: Current everyday Tobacco user Tobacco use type: Cigarette and Smokeless Tobacco Cigarettes Per Day: 6 e-Cigarette/Vaping Use: Currently Using Current occupational status: employed Current occupation: [employer] Cognitive needs: No Hearing needs: No Vision needs: No Female Reproductive History Menstrual Age of Menarche: 16 Review of Systems Const All systems reviewed & are unremarkable except as noted in HPI and below Reports no additional complaints ENT Reports Normal hearing present Card Denies chest pain, Denies chest pain at rest, Denies chest pain with activity and Denies pedal edema Resp Denies cough GI Denies abdominal pain Musc Denies abnormal gait, Denies muscle cramps and Denies radiating pain into limb Skin/Breast Denies skin ulcer and Denies wounds Neuro Reports Normal hearing present and Denies abnormal gait Psych Reports no additional complaints Physical Exam Vital Signs: BMI result Body Mass Index 23.9 Const General: cooperative, healthy appearing and comfortable Orientation/consciousness: oriented to person, oriented to place and oriented to time HEENT Head: Yes normal to inspection Neck Neck: Yes normal visual inspection Carotids: no bruits Chest Chest palpation & inspection: normal inspection of the chest Resp Effort & Inspection: normal respiratory effort and able to speak in complete sentences Auscultation: clear to auscultation bilaterally, no crackles, no rales, no rhonchi and no wheezes Cardio Rate: regular rate Rhythm: regular rhythm Heart sounds: S1 normal heart sound present and S2 normal heart sound present Bruits: no carotid bruits Peripheral pulses: Peripheral pulses 2+ throughout GI Inspection: Yes normal to inspection Skin Other: Right lower extremity incisions well healed Wounds: no wounds Hair: normal Neuro General: oriented to person, oriented to place and oriented to time Cranial nerves: Yes CN's II-XII intact bilaterally and Yes Normal hearing present Cognition (Neuro): normal cognition Motor exam (neuro): 5/5 motor strength present throughout Extrem Other: venous exam: No significant superficial varicosities or spider telangiectasias, minimal edema General: No clubbing, No cyanosis and No edema Psych Appearance: grossly normal Mental Status: mental status grossly normal Speech and movement: Normal speech and movement present Assessment & Plan Assessment & Plan (1) Varicose veins of right lower extremity with inflammation: Comment: 09/08/2023-right great saphenous vein Cyanoacralate ablation 12/18/2023 - operative right lower extremity microphlebectomy Code(s): I83.11 - Varicose veins of right lower extremity with inflammation Category: Medical Plan: The patient has done extremely well with all venous treatments. Patient's may often experience postprocedure phlebitic episodes and I have discussed with the patient use of warm compresses and NSAIDS if tolerated for pain discomfort. In addition, I have discussed continued conservative measures including use of compression, leg elevation, and exercise. The patient was also given an information sheet regarding appropriate use of compression stockings and future purchases. Thank you for allowing us to care for your patient with venous disease. (2) Varicose veins of left lower extremity with inflammation: Code(s): I83.12 - Varicose veins of left lower extremity with inflammation Category: Medical Plan: See above Coding Level of Care Code Est Pt Level 3 (45434) Diagnoses Varicose veins of right lower extremity with inflammation I83.11 Varicose veins of left lower extremity with inflammation I83.12
[2024-01-04 15:26] VITALS: BMI 23.9
== END 2024-01-04 15:53 | disposition home or self-care (01) ==
PROVIDERS: PCP Physician Assistant; Visit Provider Surgery Vascular Surgery
DX: I83.11 Varicose veins of right lower extremity with inflammation (principal); I83.12 Varicose veins of left lower extremity with inflammation
CPT/HCPCS: 99213

== ENCOUNTER → 2024-01-04 15:07 | Outpatient (BNVA) | payer OTHER, SELFPAY | PROVIDERS: PCP Physician Assistant; Visit Provider Surgery Vascular Surgery | DX: I83.11 Varicose veins of right lower extremity with inflammation (principal); I83.12 Varicose veins of left lower extremity with inflammation | CPT/HCPCS: 99212 ==

== ENCOUNTER 2024-01-16 07:35 | Day surgery (SDC) | payer OTHER, SELFPAY ==
--- NOTE | 2024-01-12 13:32 | P.CONAN_ITS ---
Documented by User: Lavinia Orellana NP 01/15/24 11:04 HPI - Anesthesia Eval Consult details Narrative: 48yo F for Colonoscopy Hx polysub on suboxone daily Hx cocaine use, ? 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 (Acute) Depression (Acute) Varicose veins of right lower extremity with inflammation (Acute) Atypical squamous cell changes of cervix undetermined significance favor benign (Acute) Cervical cancer screening (Acute) Symptomatic varicose veins of right lower extremity (Acute) Tobacco dependence (Acute) Breast cancer screening (Acute) Screening for diabetes mellitus (DM) (Acute) Screening for hypothyroidism (Acute) PVD (peripheral vascular disease) with claudication (Acute) Past Medical History Medical History Opioid use disorder, severe, in early remission, dependence Cocaine use disorder Opioid use disorder, severe, dependence 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 Family history of problems with anesthesia: No Surgical History Surgical History History of loop electrical excision procedure (LEEP) Hx of tubal ligation History of Problems with Anesthesia: No Social History Social History Housing: House Are you a primary career technical counselor to a significant other at home: No Do you presently have visiting nurse or other home services: No Alcohol intake: never Patient Tobacco Use Status: Current everyday Tobacco user Tobacco use type: Cigarette Cigarettes Per Day: 8 e-Cigarette/Vaping Use: Currently Using Use of substances other than those prescribed or required for medical reasons: Yes Substance Use Frequency: Daily Have you been hit, kicked, punched, or otherwise hurt by someone within the past year? If so, by whom?: No Are you DNR?: No Advance Directives: No Advance Directives Information Provided: Yes Recently lost weight without trying: No Nutrition Risks: No Nutritional Risk Patient : No Current occupational status: employed Current occupation: [employer] Cognitive needs: No Hearing needs: No Vision needs: No Meds Allergies Allergy/AdvReac Type Severity Reaction Status Date / Time No Known Allergies Allergy Verified 01/16/24 08:30 Assessment and Plan Assessment Anesthesia Assessment: Chart Reviewed Final Anesthetic Review Family History of Problems with Anesthesia: No History of Problems with Anesthesia: No Documented by User: Aaron Lucas MD 01/16/24 11:07 [facility] Past Medical History Medical History Opioid use disorder, severe, in early remission, dependence Cocaine use disorder Opioid use disorder, severe, dependence Other fdc (current) drug therapy Depression Opioid use disorder Family History Family History Father COPD (chronic obstructive pulmonary disease) Mother No problems noted. Surgical History Surgical History History of loop electrical excision procedure (LEEP) Hx of tubal ligation Social History Social History Housing: House Are you a primary career technical counselor to a significant other at home: No Do you presently have visiting nurse or other home services: No Alcohol intake: never Patient Tobacco Use Status: Current everyday Tobacco user Tobacco use type: Cigarette Cigarettes Per Day: 8 e-Cigarette/Vaping Use: Currently Using Use of substances other than those prescribed or required for medical reasons: Yes Substance Use Frequency: Daily Have you been hit, kicked, punched, or otherwise hurt by someone within the past year? If so, by whom?: No Are you DNR?: No Advance Directives: No Advance Directives Information Provided: Yes Recently lost weight without trying: No Nutrition Risks: No Nutritional Risk Patient : No Current occupational status: employed Current occupation: [employer] Cognitive needs: No Hearing needs: No Vision needs: No Meds Allergies Allergy/AdvReac Type Severity Reaction Status Date / Time No Known Allergies Allergy Verified 01/16/24 08:30 Assessment and Plan Assessment Anesthesia Assessment: Anesthesia Plan Discussed Final Anesthetic Review NPO: No ASA Class: III Final Preanesthetic Review: No Changes in Pt Med Stat, Meds/Allgs Chart Revie wed, Consent Obtained/Reviewed and Anes Risks/Benef Reviewed Patient Risk: Intermediate Procedure Risk: Low Anesthetic Plan Disposition: Standard PACU
[2024-01-16 08:25] VITALS: BMI 24.4
--- NOTE | 2024-01-16 08:51 | P.HPSUR_ITS ---
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 Depression Opioid use disorder Surgical History History of loop electrical excision procedure (LEEP) Hx of tubal ligation Present Medications: see Short Stay Collaborative assessment Allergies: Allergies Allergy/AdvReac Type Severity Reaction Status Date / Time No Known Allergies Allergy Verified 01/16/24 08:30 Review of Systems Review of Systems Comment: Ten point ROS negative Exam Exam Comment: Gen appear: No acute distress HEENT: no icterus Chest: No overt resp distress Abd: soft, nontender, nondistended Psych: Stable affect, answering questions appropriately Neuro: A/Ox3 noted to move all extremities spontaneously Ext: no peripheral edema Plan Diagnosis/Plan: Unchanged I have reviewed the history and physical and performed a pertinent physical examination on my patient. No changes have occurred unless specified. Time Spent With Patient Time: Total time managing care of this patient today ____ minutes.
[2024-01-16] MEDS: Sodium Phosphate,Mono-Dibasic 133 ML ENEMA PR (09:23)
[2024-01-16 09:35] VITALS: BP 99/67; PULSE 69; RESP 14; TEMP 36.3; O2SAT 100
[2024-01-16 09:40] LABS: Amphetamine Screen Urine Not Detected (Not Detect); Barbiturates, Urine Not Detected (Not Detect); Benzodiazepines Screen Urine Not Detected (Not Detect); Buprenorphine Scr Positive (Not Detect); Cannabinoid Screen Urine POSITIVE (Not Detect); Cocaine Screen Urine Not Detected (Not Detect); Fentanyl, urine Not Detected (Not Detect); Methadone Screen, Urine Not Detected (Not Detect); Opiate Screen Urine Not Detected (Not Detect); Oxycodone Screen Urine Not Detected (Not Detect); Phencyclidine Screen Urine Not Detected (Not Detect)
[2024-01-16] MEDS: Lactated Ringers 1,000 ML 100 ML IVCONT (10:10)
--- NOTE | 2024-01-16 11:00 | P.OPN-COLO_ITS ---
Colonoscopy Operative Note Operative Note Date of Service: 01/16/24 Narrative: Procedure: Colonoscopy Indication: Screening Endoscopist: Paulina Hobbs MD Anesthesia Provider: Dr Aaron Lucas Anesthesia type: MAC Instrument: Olympus [id number]-[id number] Consent: Indication, risks vs benefits, and alternatives were discussed with the patient who gave written informed consent to proceed. EKG, pulse, pulse oximetry and blood pressure were monitored throughout the procedure. Please see anesthesia flowsheet. Procedure: The patient was brought to the procedure room and placed in the left lateral decubitus position. IV medications were administered by the anesthesia provider in attendance. A digital rectal exam was performed which was normal. A distal attachment cap was affixed to the tip of the colonoscope which was then inserted through the anus and advanced through the colon to the cecum at 80 cm. Appendiceal orifice and ileocecal valve were identified. Mucosa was carefully examined under high definition white light as the instrument was slowly withdrawn in a retrograde panoramic fashion. Retroflexion was performed in rectum. The procedure was not difficult. There were no immediate obvious complications. The quality of the prep was BBPS: 2+2+3 = adequate Withdrawal time 10 minutes. Limitations: No limitations. Findings: Mucosa: Localized erythema in a stripe pattern in the anorectum likely mild trauma from the enema. Cold forceps biopsies were taken for histology. Remaining mucosa normal to cecum. Protruding lesions: * Medium internal hemorrhoids without stigmata of recent bleeding. Impression: 1. Abnormal anorectal mucosa (biopsy) 2. Internal hemorrhoids Recommendations: - Follow path results. - Repeat colonoscopy in 10 years for asymptomatic colorectal cancer screening.
[2024-01-16 11:02] VITALS: BP 111/63; PULSE 71; RESP 16; TEMP 36.1; O2SAT 100
[2024-01-16 11:15] VITALS: BP 109/68; PULSE 81; RESP 16; TEMP 36.1; O2SAT 100
== END 2024-01-16 11:30 | disposition home or self-care (01) ==
PROVIDERS: PCP Physician Assistant; Visit Provider Internal Medicine
PROC: 0DJD8ZZ Inspection of Lower Intestinal Tract, Via Natural or Artificial Opening Endoscopic (ICD-10-PCS; CPT 45378; principal; 2024-01-16 08:50)
DX: Z12.11 Encounter for screening for malignant neoplasm of colon (principal); K62.89 Other specified diseases of anus and rectum; K52.9 Noninfective gastroenteritis and colitis, unspecified; K64.8 Other hemorrhoids; F32.A Depression, unspecified; I83.90 Asymptomatic varicose veins of unspecified lower extremity; Z79.899 Other long term (current) drug therapy; F11.21 Opioid dependence, in remission; F14.90 Cocaine use, unspecified, uncomplicated; F17.210 Nicotine dependence, cigarettes, uncomplicated; Z98.51 Tubal ligation status
CPT/HCPCS: 45380; 80307; 88305; J2003; J2704

== ENCOUNTER → 2024-01-16 07:35 | Outpatient (BNV) | payer OTHER, SELFPAY | PROVIDERS: PCP Physician Assistant; Visit Provider Internal Medicine | DX: Z12.11 Encounter for screening for malignant neoplasm of colon (principal); K64.8 Other hemorrhoids | CPT/HCPCS: 45380 ==

== ENCOUNTER 2024-02-09 11:08 | Outpatient (AMB) | payer OTHER, SELFPAY ==
--- NOTE | 2024-02-09 11:23 | A.OFFVISCC_ITS ---
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 Social History Housing: House Are you a primary career and technology education teacher to a significant other at home: No Do you presently have visiting nurse or other home services: No Alcohol intake: never Patient Tobacco Use Status: Current everyday Tobacco user Tobacco use type: Cigarette Cigarettes Per Day: 8 e-Cigarette/Vaping Use: Currently Using Current occupational status: employed Current occupation: [employer] Cognitive needs: No Hearing needs: No Vision needs: No Female Reproductive History Menstrual Age of Menarche: 16 Review of Systems Const Reports as per HPI and Reports no additional complaints Physical Exam Const General: cooperative, healthy appearing, comfortable, no acute distress, well developed and alert Nutritional Appearance: average body habitus Orientation/consciousness: patient oriented x3 Limitations: no limitations Neuro General: patient oriented x3 Psych Appearance: grossly normal Mental Status: mental status grossly normal Speech and movement: Normal speech and movement present Affect: normal affect Attitude: cooperative Thought process: Normal thought process present Thought content: Normal thought content present Insight: Good insight present (Psych) Judgement: Good judgement present (Psych) Assessment & Plan Assessment & Plan (1) Opioid use disorder, severe, in sustained remission: Code(s): F11.21 - Opioid dependence, in remission Category: Medical Plan: * continue suboxone at current dose * follow up 4 weeks (2) Cocaine use disorder, severe, in sustained remission: Code(s): F14.21 - Cocaine dependence, in remission Category: Medical Plan: * continue topomax * relapse prevention discussion
== END 2024-02-09 11:51 | disposition home or self-care (01) ==
LOC: HO.HCC 11:08
PROVIDERS: PCP Physician Assistant; Visit Provider Nurse Practitioner Psychiatric/Mental Health
DX: F11.21 Opioid dependence, in remission (principal); F14.21 Cocaine dependence, in remission
CPT/HCPCS: 99214

== ENCOUNTER → 2024-02-09 11:08 | Outpatient (BNVA) | payer OTHER, SELFPAY | PROVIDERS: PCP Physician Assistant; Visit Provider Nurse Practitioner Psychiatric/Mental Health | DX: F11.21 Opioid dependence, in remission (principal); F14.21 Cocaine dependence, in remission; Z51.81 Encounter for therapeutic drug level monitoring; Z79.899 Other long term (current) drug therapy | CPT/HCPCS: 99212 ==

== ENCOUNTER 2024-03-22 11:09 | Outpatient (AMB) | payer OTHER, SELFPAY ==
--- NOTE | 2024-03-22 11:14 | A.OFFVISCC_ITS ---
Intake Visit Reasons: MAT VISIT Allergies No Known Allergies Allergy (Verified 01/16/24 08:30) HPI HPI MAT VISIT: Details: Patient presents for ALENA treatment follow up Currently prescribed Suboxone 8mg BID and Topomax 50mg daily Reporting she is not happy at her job --has been exploring her options PCPa appt in May Review of Systems Const Reports as per HPI and Reports no additional complaints Physical Exam Const General: cooperative, healthy appearing, comfortable, no acute distress, well developed and alert Nutritional Appearance: average body habitus Orientation/consciousness: patient oriented x3 Limitations: no limitations Neuro General: patient oriented x3 Psych Appearance: grossly normal Mental Status: mental status grossly normal Speech and movement: Normal speech and movement present Affect: normal affect Attitude: cooperative Thought process: Normal thought process present Thought content: Normal thought content present Insight: Good insight present (Psych) Judgement: Good judgement present (Psych) Assessment & Plan Assessment & Plan (1) Opioid use disorder, severe, in sustained remission: Code(s): F11.21 - Opioid dependence, in remission Category: Medical Plan: * continue suboxone at current dose * follow up 4 weeks (2) Cocaine use disorder, severe, in sustained remission: Code(s): F14.21 - Cocaine dependence, in remission Category: Medical Plan: * continue topomax * relapse prevention discussion [facility] Medical History Opioid use disorder, severe, in early remission, dependence Cocaine use disorder Opioid use disorder, severe, dependence 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 Social History Housing: House Are you a primary wound care center consultant to a significant other at home: No Do you presently have visiting nurse or other home services: No Alcohol intake: never Patient Tobacco Use Status: Current everyday Tobacco user Tobacco use type: Cigarette Cigarettes Per Day: 8 e-Cigarette/Vaping Use: Currently Using Current occupational status: employed Current occupation: [id number] Cognitive needs: No Hearing needs: No Vision needs: No
== END 2024-03-22 11:32 | disposition home or self-care (01) ==
PROVIDERS: PCP Physician Assistant; Visit Provider Nurse Practitioner Psychiatric/Mental Health
DX: F11.21 Opioid dependence, in remission (principal); F14.21 Cocaine dependence, in remission
CPT/HCPCS: 99214

== ENCOUNTER → 2024-03-22 11:09 | Outpatient (BNVA) | payer OTHER, SELFPAY | PROVIDERS: PCP Physician Assistant; Visit Provider Nurse Practitioner Psychiatric/Mental Health | DX: Z51.81 Encounter for therapeutic drug level monitoring (principal); F11.21 Opioid dependence, in remission; F14.21 Cocaine dependence, in remission | CPT/HCPCS: 99212 ==

== ENCOUNTER 2024-04-26 10:42 | Outpatient (AMB) | payer OTHER, SELFPAY ==
--- NOTE | 2024-04-26 10:46 | MHC.AM.SUB ---
Intake Visit Reasons: MAT VISIT Allergies No Known Allergies Allergy (Verified 01/16/24 08:30) HPI HPI MAT VISIT: Details: Patient presents for ALENA treatment follow up Currently prescribed Suboxone 8mg BID Topomax 50mg BID Doing well with recovery Still engaged in therapy --going every 2 weeks Working a lot-happy about this Considering reaching out to her father--hasn't spoken to him in years Also considering going to meetings or going to [facility] Review of Systems Const Reports as per HPI Physical Exam Const General: cooperative, healthy appearing, comfortable, no acute distress, well developed and alert Nutritional Appearance: average body habitus Orientation/consciousness: patient oriented x3 Limitations: no limitations Neuro General: patient oriented x3 Psych Appearance: grossly normal Mental Status: mental status grossly normal Speech and movement: Normal speech and movement present Affect: normal affect Attitude: cooperative Thought process: Normal thought process present Thought content: Normal thought content present Insight: Good insight present (Psych) Judgement: Good judgement present (Psych) COUNT INCLUDES THE [facility] Medical History Opioid use disorder, severe, in early remission, dependence Cocaine use disorder Opioid use disorder, severe, dependence 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 Social History Housing: House Are you a primary care worker to a significant other at home: No Do you presently have visiting nurse or other home services: No Alcohol intake: never Patient Tobacco Use Status: Current everyday Tobacco user Tobacco use type: Cigarette Cigarettes Per Day: 8 e-Cigarette/Vaping Use: Currently Using Current occupational status: employed Current occupation: [employer] Cognitive needs: No Hearing needs: No Vision needs: No Assessment & Plan Assessment & Plan (1) Opioid use disorder, severe, in sustained remission: Code(s): F11.21 - Opioid dependence, in remission Category: Medical Plan: continue suboxone at current dose follow up 4 weeks provided calenders for [facility] and [facility] (2) Cocaine use disorder, severe, in sustained remission: Code(s): F14.21 - Cocaine dependence, in remission Category: Medical Plan: continue topomax relapse prevention discussion Medications: New topiramate 50 mg PO BID 60 tabs 3RF Refilled buprenorphine-naloxone 8-2 mg (Suboxone) 1 film sublingual BID 30 days 60 ea 0RF Discontinued topiramate Discontinued Reason: Doctor's Order 50 mg (2 x 25 mg) PO DAILY 60 tabs 3RF
== END 2024-04-26 11:06 | disposition home or self-care (01) ==
PROVIDERS: PCP Physician Assistant; Visit Provider Nurse Practitioner Psychiatric/Mental Health
DX: F11.21 Opioid dependence, in remission (principal); F14.21 Cocaine dependence, in remission
CPT/HCPCS: 99214

== ENCOUNTER → 2024-04-26 10:42 | Outpatient (BNVA) | payer OTHER, SELFPAY | PROVIDERS: PCP Physician Assistant; Visit Provider Nurse Practitioner Psychiatric/Mental Health | DX: Z51.81 Encounter for therapeutic drug level monitoring (principal); F11.21 Opioid dependence, in remission; F14.21 Cocaine dependence, in remission | CPT/HCPCS: 99212 ==

== ENCOUNTER 2024-05-24 11:06 | Outpatient (AMB) | payer OTHER, SELFPAY ==
--- NOTE | 2024-05-24 11:19 | MHC.AM.SUB ---
Intake Visit Reasons: MAT VISIT Allergies No Known Allergies Allergy (Verified 01/16/24 08:30) HPI HPI MAT VISIT: Details: Patient presents for follow up Currently prescribed Suboxone 8mg BID Tolerating current dose Topomax dose 50mg BID --finds that she has cut down cigarette smoking since dose increase However she has been vaping more often Discussed risks with this, including increased risk with flavors. Review of Systems Const Reports as per HPI and Reports no additional complaints Physical Exam Const General: cooperative, healthy appearing, comfortable, no acute distress, well developed and alert Nutritional Appearance: average body habitus Orientation/consciousness: patient oriented x3 Limitations: no limitations Neuro General: patient oriented x3 Psych Appearance: grossly normal Mental Status: mental status grossly normal Speech and movement: Normal speech and movement present Affect: normal affect Attitude: cooperative Thought process: Normal thought process present Thought content: Normal thought content present Insight: Good insight present (Psych) Judgement: Good judgement present (Psych) [facility] Medical History Opioid use disorder, severe, in early remission, dependence Cocaine use disorder Opioid use disorder, severe, dependence 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 Social History Housing: House Are you a primary medicare insurance specialist to a significant other at home: No Do you presently have visiting nurse or other home services: No Alcohol intake: never Patient Tobacco Use Status: Current everyday Tobacco user Tobacco use type: Cigarette Cigarettes Per Day: 8 e-Cigarette/Vaping Use: Currently Using Current occupational status: employed Current occupation: [employer] Cognitive needs: No Hearing needs: No Vision needs: No Assessment & Plan Assessment & Plan (1) Opioid use disorder, severe, in sustained remission: Code(s): F11.21 - Opioid dependence, in remission Category: Medical Plan: continue suboxone at current dose follow up 4 weeks (2) Cocaine use disorder, severe, in sustained remission: Code(s): F14.21 - Cocaine dependence, in remission Category: Medical Plan: continue topomax relapse prevention discussion Medications: Refilled buprenorphine-naloxone 8-2 mg (Suboxone) 1 film sublingual BID 60 ea 0RF 30 days
--- OUTSIDE RECORDS SUMMARY | 2024-05-24 12:01 | XMS_ITS | Encounter Summary ---
Author Organization [facility] [employer] Address [address] [place] [address] Care Team Providers Care Provider Relations Representative Name Role Phone Unavailable Primary Care Provider Unavailabl e Encounter Details Date Type Department Care Team (Latest Contact Info) Description 05/24/2019 Abstract [facility] CONVERSIONS Dental, Provider, DDS Social History Tobacco Use Types Packs/Day Years Used Date Smoking Tobacco: Never Assessed Comments Unknown Sex and Gender Information Value Date Recorded Sex Assigned at Female 02/07/2022 10:21 AM EDT Legal Sex Female 10:21 AM EDT Gender Identity Choose not to disclose 10:21 AM EDT Sexual Orientation Choose not to disclose 2021 10:21 AM EDT documented as of this encounter Plan of Treatment Upcoming Encounters Date Type Department Care Team (Late st Contact Info) Description 07/11/2024 4:00 PM EDT Office Visit [facility] [address], [place] [id number] Cristo Urbina BDS [address], [place] [phone] documented as of this encounter Visit Diagnoses Not on filedocumented in this encounter
--- OUTSIDE RECORDS SUMMARY | 2024-05-24 12:01 | XMS_ITS | Clinical Summary ---
Author Organization [employer] Address [address] [place] [address] Care Team Providers Care Inspector Paper Products Name Role Phone Unavailable Primary Care Provider Unavailabl e Allergies No known active allergies Medications Suboxone 8-2 MG SL film DISSOLVE 1 FILM SUBLINGUALLY 2 TIMES A DAY FOR 21 DAYS 3 Active buPROPion SR (Wellbutrin SR) 150 MG 12 hr tablet Take 150 mg by mouth 2 times daily. 3 Active loratadine (Claritin) 10 MG tablet Take 10 mg by mouth Once per day. 4 Active topiramate (Topamax) 25 MG tablet Take 50 mg by mouth Once per day. 4 Active Social History Tobacco Use Types Packs/Day Years Used Date Smoking Tobacco: Every Day Cigarettes Smokeless Tobacco: Never Tobacco Cessation:Ready to Q uit: Not Asked; Counseling Given: Not Answered Comments Unknown Sex and Gender Information Value Date Recorded Sex Assigned at Female 02/07/2022 10:21 AM EDT Legal Sex Female 10:21 AM EDT Gender Identity Choose not to disclose 2 10:21 AM EDT Sexual Orientation Choose not to disclose 2021 10:21 AM EDT Last Filed Vital Signs Vital Sign Reading Time Taken Comments Blood Pressure 127/72 01/09/2024 3:19 PM EDT Pulse 76 01/09/2024 3:19 PM EDT Temperature - - Respiratory Rate - - Oxygen Saturation - - Inhaled Oxygen Concentration - - Weight - - Height - - Body Mass Index - - Plan of Treatment Upcoming Encounters Date Type Department Care Team ([facility] Contact Info) Description 07/11/2024 4:00 PM EDT Office Visit [facility] [address] [place] [id number] Cristo Urbina BDS [address] [place] [address] Health Maintenance Due Date Last Done Comments CT Colonography 1977 Colonoscopy 1977 Colorectal Cancer Screening 1977 Depression Screening 1977 FIT DNA/Cologuard 1977 FIT 1977 FOBT 1977 HIV Screening 1977 Lipid Panel 1977 SDOH Screening 1977 Sigmoidoscopy 1977 Alcohol/Substance Use Screening 1989 Family Planning (PISQ) 1992 Hepatitis C Screening 12/23/1995 DTaP/Tdap/Td Vaccines (1 - Tdap) 1996 Hepatitis B Vaccines (1 of 3 - 19+ 3-dose series) 1996 Pap Smear 1998 Cervical Cancer Screening 12/23/2007 HPV/Cotest 12/23/2007 Mammogram 2017 Pneumococcal Vaccine: Pediatrics (0 to 5 Years) and At-Risk Patients (6 to 49) Years) (2 of 2 - PCV) 05/29/2020 05/29/2019 Dental X-Ray: Bitewings 08/24/2023 08/22/2022 COVID-19 Vaccine ( season) 2023 05/04/2021, 08/19/2020, 07/22/2020 Influenza Vaccine (#1) 2023 03/02/2020, 2018 Dental Oral Exam 07/10/2024 01/09/2024, 05/24/2019 Dental Prophylaxis 07/10/2024 01/09/2024, 0 07/03/2023, 11/17/2022, Additional history exists Tobacco Screening 01/08/2025 01/09/2024 Dental X-Ray: Full Mouth 08/23/2025 08/22/2022, 05/11 Zoster Vaccines (1 of 2) 12/23/2027 RSV Patients and Patients Aged 60 years or older (1 - 1-dose 75+ series) 2052 HIB Vaccines Aged Out No longer eligi ble based on patient's age to complete this topic HPV Vaccines Aged Out No longer eligi ble based on patient's age to complete this topic Hepatitis A Vaccines Aged Out No long er eligible based on patient's age to complete this topic IPV Vaccines Aged Out No longer eligi ble based on patient's age to complete this topic Meningococcal Vaccine Aged Out No leigh ann vira eligible based on patient's age to complete this topic RSV under 20 months Aged Out No longe r eligible based on patient's age to complete this topic Rotavirus Vaccines Aged Out No longer eligible based on patient's age to complete this topic Procedures Procedure Name Priority Date/Time Associated Diagnosis Comments PROPHYLAXIS - ADULT Routine 01/09/2024 3 :00 PM EDT PERIODIC ORAL EVALUATION - ESTABLISHED PATIENT Routine 01/09/2024 3:00 PM EDT INTRAORAL - COMPLETE SERIES OF RADIOGRAPHIC IMAGES Routine 08/22/2022 1:00 PM EDT Encounter for dental examination from Last 3 Months or Most Recently Relevant to Health Maintenance Insurance [facility] MEDICA[facility] STAND ADULT
== END 2024-05-24 11:47 | disposition home or self-care (01) ==
LOC: HO.HCC 11:06
PROVIDERS: PCP Physician Assistant; Visit Provider Nurse Practitioner Psychiatric/Mental Health
DX: F11.21 Opioid dependence, in remission (principal); F14.21 Cocaine dependence, in remission
CPT/HCPCS: 99213

== ENCOUNTER → 2024-05-24 11:06 | Outpatient (BNVA) | payer OTHER, SELFPAY | PROVIDERS: PCP Physician Assistant; Visit Provider Nurse Practitioner Psychiatric/Mental Health | DX: F11.21 Opioid dependence, in remission (principal); F14.21 Cocaine dependence, in remission; Z51.81 Encounter for therapeutic drug level monitoring | CPT/HCPCS: 99212 ==

== ENCOUNTER 2024-09-16 10:08 | Outpatient (AMB) | payer OTHER, SELFPAY ==
--- OUTSIDE RECORDS SUMMARY | 2024-09-16 11:11 | XMS_ITS | Encounter Summary ---
Author Organization [facility] [employer] [facility] Address [address] [place] [address] Care Team Providers Care Claim Clinician Name Role Phone Unavailable Primary Care Provider Unavailabl e Encounter Details Date Type Department Care Team (Latest Contact Info) Description 05/24/2019 Abstract C CONVERSIONS Dental, Provider, DDS Social History Tobacco [...] as of this encounter Plan of Treatment Not on file documented as of this encounter Visit Diagnoses Not on filedocumented in this encounter
[2024-09-16 11:36] VITALS: PULSE 75; O2SAT 100; BMI 22.5
--- NOTE | 2024-09-16 11:36 | A.OFFVIS_ITS ---
Vital Signs 09/16/24 11:36 Height 5 ft 3 in Weight 127 lb BMI 22.5 Pulse 75 Pulse Source Pulse Oximeter Pulse Oximetry (%) 100 Intake Visit Reasons: MAT Allergies No Known Allergies Allergy (Verified 09/16/24 11:40) HPI HPI MAT: Details: She is doing well. She has no complaints. 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 Social History Housing: House Are you a primary healthcare associate to a significant other at home: No Do you presently have visiting nurse or other home services: No Alcohol intake: never Patient Tobacco Use Status: Current everyday Tobacco user Tobacco use type: Cigarette Cigarettes Per Day: 8 e-Cigarette/Vaping Use: Currently Using Current occupational status: employed Current occupation: [employer] Cognitive needs: No Hearing needs: No Vision needs: No Female Reproductive History Menstrual Age of Menarche: 16 Review of Systems Const All systems reviewed & are unremarkable except as noted in HPI and below Physical Exam Vital Signs: Last Vital Signs Pulse 75 09/16/24 11:36 Pulse Ox 100 09/16/24 11:36 BMI result Body Mass Index 22.5 Assessment & Plan Assessment & Plan (1) Opioid use disorder, severe, in sustained remission: Comment: no complaints Code(s): F11.21 - Opioid dependence, in remission Category: Medical Plan: Continue current plan. See as scheduled. (2) Cocaine use disorder, severe, in sustained remission: Code(s): F14.21 - Cocaine dependence, in remission Category: Medical Plan: na Medications: New buprenorphine-naloxone 8-2 mg (Suboxone) 1 film sublingual BID 60 ea 0RF 30 days Coding Level of Care Code Est Pt Level 3 (35360) Diagnoses Opioid use disorder, severe, in sustained remission F11.21 Cocaine use disorder, severe, in sustained remission F14.21
== END 2024-09-16 11:57 | disposition home or self-care (01) ==
LOC: HO.HCC 10:08
PROVIDERS: PCP Physician Assistant; Visit Provider Internal Medicine
DX: F11.21 Opioid dependence, in remission (principal); F14.21 Cocaine dependence, in remission
CPT/HCPCS: 99213

== ENCOUNTER → 2024-09-16 10:08 | Outpatient (BNVA) | payer OTHER, SELFPAY | PROVIDERS: PCP Physician Assistant; Visit Provider Internal Medicine | DX: F11.21 Opioid dependence, in remission (principal) | CPT/HCPCS: 99212 ==

== ENCOUNTER 2024-11-27 15:11 | Outpatient (AMB) | payer OTHER, SELFPAY ==
[2024-11-27 15:24] VITALS: BP 118/70; PULSE 56; O2SAT 98; BMI 20.7
--- NOTE | 2024-11-27 15:24 | MHC.OFFVIS ---
Vital Signs 11/27/24 15:24 Height 5 ft 3 in Weight 117 lb BMI 20.7 BP 118/70 Pulse 56 Pulse Oximetry (%) 98 Intake Visit Reasons: MAT Allergies No Known Allergies Allergy (Verified 11/27/24 15:25) HPI Comments Details: A 48-year-old female presents for follow up visit r/t ALENA in remission with buprenorphine-naloxone 8-2 mg BID. Denies use of opiates, alcohol or other substances and reports vaping cannabis. 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 Social History Housing: House Are you a primary director of primary care to a significant other at home: No Do you presently have visiting nurse or other home services: No Alcohol intake: never Patient Tobacco Use Status: Current everyday Tobacco user Tobacco use type: Cigarette Cigarettes Per Day: 8 e-Cigarette/Vaping Use: Currently Using Current occupational status: employed Current occupation: [employer] Cognitive needs: No Hearing needs: No Vision needs: No Female Reproductive History Menstrual Age of Menarche: 16 Review of Systems Const All systems reviewed & are unremarkable except as noted in HPI and below Physical Exam Vital Signs: Last Vital Signs Pulse 56 11/27/24 15:24 BP 118/70 11/27/24 15:24 Pulse Ox 98 11/27/24 15:24 BMI result Body Mass Index 20.7 Assessment & Plan Assessment & Plan (1) Opioid use disorder, severe, in sustained remission: Comment: no complaints Code(s): F11.21 - Opioid dependence, in remission Category: Medical Plan The plan of care is to continue with buprenorphine-naloxone 8-2 mg BID and utilize risk reduction activities to minimize cannabis use. Medications: Refilled buprenorphine-naloxone 8-2 mg (Suboxone) 1 film sublingual BID 60 ea 0RF 30 days Patient Instructions: - Continue with buprenorphine-naloxone as ordered. - Utilized risk reduction activities to minimize cannabis use. - Follow-up in 1 month or sooner if needed. - Call with questions, concerns, or to report side effects/new onset of symptoms to [facility]. - The patient verbalized understanding and agreed with plan of care. Coding Level of Care Code Est Pt Level 3 (66433) Diagnoses Opioid use disorder, severe, in sustained remission F11.21
--- OUTSIDE RECORDS SUMMARY | 2024-11-27 16:04 | XMS_ITS | Encounter Summary ---
Author Organization [facility] [employer] [facility] Address [address] [place] [address] Care Team Providers Care Valve Assembler Name Role Phone Unavailable Primary Care Provider [...]
== END 2024-11-27 15:56 | disposition home or self-care (01) ==
PROVIDERS: PCP Physician Assistant; Visit Provider Clinical Nurse Specialist Psychiatric/Mental Health
DX: F11.21 Opioid dependence, in remission (principal)
CPT/HCPCS: 99213

== ENCOUNTER → 2024-11-27 15:11 | Outpatient (BNVA) | payer OTHER, SELFPAY | PROVIDERS: PCP Physician Assistant; Visit Provider Clinical Nurse Specialist Psychiatric/Mental Health | DX: F11.21 Opioid dependence, in remission (principal); F17.210 Nicotine dependence, cigarettes, uncomplicated | CPT/HCPCS: 99212 ==

== ENCOUNTER 2024-12-27 15:11 | Outpatient (AMB) | payer OTHER, SELFPAY ==
--- OUTSIDE RECORDS SUMMARY | 2024-12-27 15:13 | XMS_ITS | Encounter Summary ---
Author Organization [facility] [employer] [facility] Address [address] [place] [address] Care Team Providers Care Band Master Name Role Phone Unavailable Primary Care Provider [...]
--- OUTSIDE RECORDS SUMMARY | 2024-12-27 15:13 | XMS_ITS | Clinical Summary ---
Author Organization [employer] Address [address] [place] [address] Care Team Providers Care Addiction Professional Name Role Phone Unavailable Primary Care Provider [...] Mass Index - - Plan of Treatment Health Maintenance Due Date Last Done Comments CT Colonography 1977 Colonoscopy 1977 Colorectal Cancer Screening 1977 Depression Screening 1977 FIT DNA/Cologuard 1977 FIT 1977 FOBT 1977 HIV Screening 1977 Lipid Panel 1977 SDOH Screening 1977 Sigmoidoscopy 1977 Disability Screening 1977 Alcohol/Substance Use Screening 1989 Family Planning (PISQ) 1992 Hepatitis C Screening 12/23/1995 DTaP/Tdap/Td Vaccines (1 - Tdap) 1996 Hepatitis B Vaccines (1 of 3 - 19+ 3-dose series) 1996 Pap Smear 1998 Cervical Cancer Screening 12/23/2007 HPV/Cotest 12/23/2007 Mammogram 2017 Pneumococcal Vaccine: Pediatrics (0 to 5 Years) and At-Risk Patients (6 to 49) Years (2 of 2 - PCV) 05/29/2020 05/29/2019 Dental X-Ray: Bitewings 08/24/2023 08/22/2022 Dental Oral Exam 07/10/2024 01/09/2024, 05/24/2019 Dental Prophylaxis 07/10/2024 01/09/2024, 0 07/03/2023, 11/17/2022, Additional history exists COVID-19 Vaccine (2024- season) 2024 05/04/2021, 08/19/2020, 07/22/2020 Influenza Vaccine (#1) 2024 03/02/2020, 2018 Tobacco Screening 01/08/2025 01/09/2024 Dental X-Ray: Full [...] patient's age to complete this topic Meningococcal B Vaccine Aged Out No l onger eligible based on patient's age to complete [...] Most Recently Relevant to Health Maintenance Insurance [facility] MEDICAID STAND ADULT
[2024-12-27 15:19] VITALS: BP 110/68; PULSE 78; O2SAT 97
--- NOTE | 2024-12-27 15:19 | A.OFFVIS_ITS ---
Vital Signs 12/27/24 15:19 BP 110/68 Pulse 78 Pulse Oximetry (%) 97 Intake Visit Reasons: MAT Allergies No Known Allergies Allergy (Verified 12/27/24 15:20) HPI Comments Details: History of Present Illness The patient is a 49-year-old female presenting for evaluation of cold and cough symptoms, as well as prescription refills. She describes a viral-like onset of symptoms typical of a common cold, such as cough, which are reportedly improving. There is no mention of severe symptoms suggestive of complications. She is under treatment for Opioid Use Disorder, taking Suboxone twice daily. Her adherence to this treatment has maintained stability in her condition without complications. Furthermore, she has stable depression managed with antidepressants, with the current request being solely for a medication refill, as the condition remains well-controlled. Review of Systems - Respiratory: Reports cold and cough. - Psychiatric: Reports stable depression, no new symptoms. Physical Exam - Vitals- Stable. Results Plan Patient was informed and verbally consented to the use of an ambient scribe for clinic note documentation during this visit. 1. Opioid use, unspecified, uncomplicated F11.90 Continue Suboxone as prescribed to manage Opioid Use Disorder, observe for improvement, and monitor adherence and side effects. 2. Depression, unspecified F32.A Refill antidepressants to maintain current stability, ensuring continuity in treatment for depression with monitoring of symptoms. 3. Acute upper respiratory infection, unspecified J06.9 Continue supportive care for cold symptoms, monitor for improvements and symptom resolution, and maintain hydration. Discussion Notes I discussed with the patient the management and treatment of her Opioid Use Disorder with Suboxone, emphasizing the importance of adherence to the medication regimen. We reviewed the stability of her depression with current medication, ensuring continuity through the refill of her antidepressants. Discussions took place regarding the viral upper respiratory infection's symptomatic management and the expected progression of symptoms given she reported improvement. Plans for monitoring the symptoms over the coming weeks with a follow-up were agreed upon, while noting that the patient has consented to the use of ambient technology during this consultation for enhancing care discussions. Medical Decision Making In assessing the patient's condition, I determined that her symptoms of cold and cough align with a viral upper respiratory infection, requiring no further intervention beyond supportive care given the improvement. Management of Opioid Use Disorder is deemed effective with Suboxone, and I plan to continue this regimen. Evaluating her depressive stability confirmed the need to provide a refill for her antidepressants due to initial stability and lack of progression in symptoms. The integration of past treatment success guided the decision to maintain her current medication regimen. Each treatment aspect was discussed to assure patient understanding and compliance. Patient Instructions - Take your Suboxone twice each day as prescribed for opioid use disorder. - Continue taking your antidepressants as directed. - Drink plenty of fluids and rest to relieve your cold symptoms. - Return for a follow-up visit in one month or if your symptoms worsen. 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 Social History Housing: House Are you a primary care program director to a significant other at home: No Do you presently have visiting nurse or other home services: No Alcohol intake: never Patient Tobacco Use Status: Current everyday Tobacco user Tobacco use type: Cigarette Cigarettes Per Day: 8 e-Cigarette/Vaping Use: Currently Using Current occupational status: employed Current occupation: [employer] Cognitive needs: No Hearing needs: No Vision needs: No Female Reproductive History Menstrual Age of Menarche: 16 Physical Exam Vital Signs: Last Vital Signs Pulse 78 12/27/24 15:19 BP 110/68 12/27/24 15:19 Pulse Ox 97 12/27/24 15:19 Assessment & Plan Assessment & Plan (1) Cocaine use disorder, severe, in sustained remission: Code(s): F14.21 - Cocaine dependence, in remission Category: Medical Plan: na Medications: New buprenorphine-naloxone 8-2 mg (Suboxone) 1 film sublingual BID 60 ea 0RF 30 days bupropion HCl SR (Wellbutrin SR) 150 mg PO Q12H 60 tabs 5RF 30 days Coding Level of Care Code Est Pt Level 3 (16179) Diagnoses Cocaine use disorder, severe, in sustained remission F14.21
== END 2024-12-27 15:29 | disposition home or self-care (01) ==
LOC: HO.HCC 15:11
PROVIDERS: PCP Physician Assistant; Visit Provider Internal Medicine
DX: F14.21 Cocaine dependence, in remission (principal)
CPT/HCPCS: 99213

== ENCOUNTER → 2024-12-27 15:11 | Outpatient (BNVA) | payer OTHER, SELFPAY | PROVIDERS: PCP Physician Assistant; Visit Provider Internal Medicine | DX: F14.21 Cocaine dependence, in remission (principal); F32.A Depression, unspecified; J06.9 Acute upper respiratory infection, unspecified | CPT/HCPCS: 99212 ==

== ENCOUNTER 2025-01-24 14:26 | Outpatient (AMB) | payer OTHER, SELFPAY ==
--- NOTE | 2025-01-24 14:26 | A.OFFVIS_ITS ---
Vital Signs 01/24/25 14:31 BP 116/70 Pulse 88 Pulse Oximetry (%) 98 Intake Visit Reasons: MAT Allergies No Known Allergies Allergy (Verified 01/24/25 14:31) HPI Comments Details: History of Present Illness The patient is a 49-year-old female presenting with a follow-up for substance use disorders, particularly opioid and cocaine use disorders. She reports success with her current Suboxone therapy, experiencing beneficial effects such as the feeling of normalcy and stable energy but without current cravings for opioids. Her history includes multiple months of abstinence from cocaine use. Her social circumstances are improving with the acquisition of transportation and employment, though familial relationships remain strained, impacting her mental health. She desires to seek therapy to address these emotional concerns but expresses uncertainty regarding insurance coverage. The patient currently manages her mental health with Wellbutrin SR and articulates that her overall functioning is good, emphasizing the importance of continued support for her recovery journey. Review of Systems - General: Denies complaints. - Neurological: Denies cravings for substances. - Psychiatric: Reports feeling well on Suboxone, with a sense of normalcy and increased energy; expresses distress about family relationships and wishes to resume therapy contingent on insurance status. Physical Exam - Vitals- Stable. Results Plan Patient was informed and verbally consented to the use of an ambient scribe for clinic note documentation during this visit. 1. Opioid use, unspecified, uncomplicated F11.90 The patient is stable on Suboxone 8/2 mg BID, feeling normal without cravings, and carries Narcan. Close monitoring is essential due to her fluctuating social conditions, with plans for monthly follow-ups and potential counseling pending insurance resolution. 2. Cocaine abuse, uncomplicated F14.10 HCC 56 The patient is abstinent from cocaine for several months. Wellbutrin SR 150 mg may help stabilize her mental health. Continued abstinence will be monitored, with further therapy urged once insurance issues are settled. Discussion Notes During the visit, we reviewed her current treatment regimen for opioid use disorder, with Suboxone maintaining her stability and sense of normalcy. We discussed the potential benefits of continued therapy to address familial stressors, though this is contingent upon resolving her insurance concerns. The patient understands the importance of counseling and follow-up care. We will continue monitoring her substance use disorders through monthly appointments, with particular attention to any changes in her social circumstances. The patient is aware of her Narcan and its use in emergencies, and we discussed her progress in abstaining from cocaine, supported by the ongoing Wellbutrin therapy. Medical Decision Making In managing this patient, my primary consideration is the stability of her opioid use disorder with Suboxone 8/2 mg BID, which effectively suppresses cravings and maintains her daily functioning. Given her cessation of cocaine use, her cocaine use disorder is being successfully managed. Wellbutrin SR aids in sustaining her mental health and supports continuing abstinence. Our treatment aims to maintain her stability and encourage further behavioral support, guided by her evolving social situations and insurance coverage. Continued monitoring and follow-up will help assess the need for further interventions as she progresses in her recovery. Patient Instructions - Continue taking Suboxone 8/2 mg twice daily as prescribed. - Take Wellbutrin SR 150 mg every 12 hours as prescribed. - Monitor for any signs of substance cravings and use Narcan if necessary. - Follow up in one month for reassessment of your current medications and recovery. - Contact us if there is a change in your mental health or if you need immediate support. - Resolve insurance issues to facilitate potential therapy sessions. -See in one month,see monthly. 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 Social History Housing: House Are you a primary home care chaplain to a significant other at home: No Do you presently have visiting nurse or other home services: No Alcohol intake: never Patient Tobacco Use Status: Current everyday Tobacco user Tobacco use type: Cigarette Cigarettes Per Day: 8 e-Cigarette/Vaping Use: Currently Using Current occupational status: employed Current occupation: [employer] Cognitive needs: No Hearing needs: No Vision needs: No Female Reproductive History Menstrual Age of Menarche: 16 Physical Exam Vital Signs: Last Vital Signs Pulse 88 01/24/25 14:31 BP 116/70 01/24/25 14:31 Pulse Ox 98 01/24/25 14:31 Assessment & Plan Assessment & Plan (1) Cocaine use disorder, severe, in sustained remission: Code(s): F14.21 - Cocaine dependence, in remission Category: Medical Plan: na Plan na Medications: New buprenorphine-naloxone 8-2 mg (Suboxone) 1 film sublingual BID 60 ea 0RF 30 days Coding Level of Care Code Est Pt Level 3 (58286) Diagnoses Cocaine use disorder, severe, in sustained remission F14.21
[2025-01-24 14:31] VITALS: BP 116/70; PULSE 88; O2SAT 98
--- OUTSIDE RECORDS SUMMARY | 2025-01-24 16:56 | XMS_ITS | Encounter Summary ---
Author Organization [facility] [employer] [facility] Address [address] [place] [address] Care Team Providers Care Grinder Set Up Operator Name Role Phone Unavailable Primary Care Provider [...]
--- OUTSIDE RECORDS SUMMARY | 2025-01-24 16:57 | XMS_ITS | Clinical Summary ---
Author Organization [employer] Address [address] [place] [address] Care Team Providers Care Time Analysis Clerk Name Role Phone Unavailable Primary Care Provider [...] FIT 1977 FOBT 1977 HIV Screening 1977 SDOH Screening 1977 Sigmoidoscopy 1977 Disability [...] 07/03/2023, 11/17/2022, Additional history exists COVID-19 Vaccine ( season) 2024 05/04/2021, 08/19/2020, 07/22/2020 Influenza Vaccine [...] Most Recently Relevant to Health Maintenance Insurance [facility] MEDICAID STAND ADULT
== END 2025-01-24 15:00 | disposition home or self-care (01) ==
LOC: HO.HCC 14:26
PROVIDERS: PCP Physician Assistant; Visit Provider Internal Medicine
DX: F14.21 Cocaine dependence, in remission (principal)
CPT/HCPCS: 99213

== ENCOUNTER → 2025-01-24 14:26 | Outpatient (BNVA) | payer OTHER, SELFPAY | PROVIDERS: PCP Physician Assistant; Visit Provider Internal Medicine | DX: F14.21 Cocaine dependence, in remission (principal) | CPT/HCPCS: 99212 ==

== ENCOUNTER 2025-02-24 14:34 | Outpatient (AMB) | payer OTHER, SELFPAY ==
[2025-02-24 14:42] VITALS: BP 122/70; PULSE 70; O2SAT 98
--- NOTE | 2025-02-24 14:42 | A.OFFVIS_ITS ---
Vital Signs 02/24/25 14:42 BP 122/70 Pulse 70 Pulse Oximetry (%) 98 Intake Visit Reasons: MAT Allergies No Known Allergies Allergy (Verified 02/24/25 14:43) Medication List - Last Reconciled 02/24/25 by Karoline Chamberlain NP-C buprenorphine-naloxone 8-2 mg (Suboxone) 1 film sublingual BID 30 days bupropion HCl SR 150 mg PO BID bupropion HCl SR (Wellbutrin SR) 150 mg PO Q12H 30 days comp.stocking,thigh,long,small As directed loratadine 10 mg PO DAILY naloxone 4 mg/actuation (Narcan) 4 mg intranasal Q2M PRN HPI Comments Details: A 49-year-old female presents for a follow-up visit r/t ALENA in sustained remission with buprenorphine-naloxone 8-2 mg BID. Denies use of opiates, alcohol, and other substances. Engages conversation re: continuing to work full-time. 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 Social History Housing: House Are you a primary customer care coordinator to a significant other at home: No Do you presently have visiting nurse or other home services: No Alcohol intake: never Patient Tobacco Use Status: Current everyday Tobacco user Tobacco use type: Cigarette Cigarettes Per Day: 8 e-Cigarette/Vaping Use: Currently Using Current occupational status: employed Current occupation: [employer] Cognitive needs: No Hearing needs: No Vision needs: No Female Reproductive History Menstrual Age of Menarche: 16 Review of Systems Const All systems reviewed & are unremarkable except as noted in HPI and below Physical Exam Vital Signs: Last Vital Signs Pulse 70 11/17/25 14:42 BP 122/70 02/24/25 14:42 Pulse Ox 98 02/24/25 14:42 Const General: cooperative Assessment & Plan Assessment & Plan (1) Opioid use disorder, severe, in sustained remission: Comment: no complaints Code(s): F11.21 - Opioid dependence, in remission Category: Medical Plan The plan of care is to continue with buprenorphine-naloxone 8-2 mg BID and follow-up in 2 months or sooner if needed. Education/brochures given for long acting injectable Sublocade and Brixadi. Medications: Changed From buprenorphine-naloxone 8-2 mg (Suboxone) 1 film sublingual BID 30 days 60 ea 0RF To buprenorphine-naloxone 8-2 mg (Suboxone) One film sublingually twice per day 1 film sublingual BID 60 ea 1RF 30 days Patient Instructions: - Continue with buprenorphine-naloxone as prescribed. - Follow-up in 2 months or sooner if needed. - Call with questions, concerns, or to report side effects/new onset of symptoms to [facility]. - The patient verbalized understanding and agreed with plan of care. Coding Level of Care Code Est Pt Level 3 (59793) Diagnoses Opioid use disorder, severe, in sustained remission F11.21
== END 2025-02-24 14:59 | disposition home or self-care (01) ==
LOC: HO.HCC 14:34
PROVIDERS: PCP Physician Assistant; Visit Provider Clinical Nurse Specialist Psychiatric/Mental Health
DX: F11.21 Opioid dependence, in remission (principal)
CPT/HCPCS: 99213

== ENCOUNTER → 2025-02-24 14:34 | Outpatient (BNVA) | payer OTHER, SELFPAY | PROVIDERS: PCP Physician Assistant; Visit Provider Clinical Nurse Specialist Psychiatric/Mental Health | DX: F11.21 Opioid dependence, in remission (principal) | CPT/HCPCS: 99212 ==